=== PATIENT | female | born 1940 | race Caucasian/White ===

== ENCOUNTER → 2016-11-24 | Outpatient (CLI) | payer MEDICARE, BC ==
--- NOTE | 2016-11-24 16:00 | XR ---
Bilateral hips HISTORY: Bilateral hip pain 2 views of each hip submitted on a total of 4 images and correlated to prior CT abdomen pelvis dated May Mild joint space loss and marginal spurring is present. Bone mineralization mildly reduced. Postop ch anges are noted in the pelvis. IMPRESSION: Osteoarthritis is mild.
== END ==
LOC: RADXRMAIN 15:41
PROVIDERS: ATTEND Family Medicine
DX: M16.0 Bilateral primary osteoarthritis of hip (principal)
CPT/HCPCS: 73521

== ENCOUNTER → 2016-12-05 | Outpatient (CLI) | payer MEDICARE, BC ==
--- NOTE | 2016-12-05 14:40 | BD ---
EXAMINATION TYPE: MG DEXA axial skeleton. DATE OF EXAM: 12/05/2016 1:12 PM CLINICAL HISTORY: Height: 63.5 inches Weight: 188 FRAX RISK QUESTIONS: Alcohol (3 or more units per day): no Family History (Parent hip fracture): mother-no, does not know about father Glucocorticoids (More than 3mos): yes (Ex: prednisone, prednisolone, methylprednisolone, dexamethasone, and hydrocortisone). History of Fracture in Adulthood: no Secondary Osteoporosis: 1. Type 1 Diabetes: no 2. Hyperthyroidism: no 3. Menopause before 45: yes; hysterectomy age 42 4. Malnutrition: no 5. Chronic liver disease: no Rheumatoid Arthritis: no Current Tobacco Use: no RISK FACTORS HISTORY OF: History of Fracture: no Family History of Osteoporosis: unsure Smoke tobacco: quit about 25 years ago Drink Alcohol: sometimes Active: somewhat Diet low in dairy products/other sources of calcium: somewhat Postmenopausal woman: yes Take estrogen and/or progesterone medications: no Lost more than 2 inches in height since high school: unsure; last bone density study lists height as 65 inches Frequent falls: no Poor Health: no Hyperparathyroidism: no Adrenal Insufficiency: no MEDICATIONS: Prednisone or other steroids: yes How Long: several months ago started Symbicort Thyroid Medications: no Osteoporosis Medications: no Additional Medications: Vitamin D, probiotic Additional History: osteoarthritis bilateral hips, systemic sclerosis EXAM MEASUREMENTS: Bone mineral densitometry was performed using the [employer] System. Bone mineral density as measured about the Lumbar spine is: ----- L1-L4(G/cm2): 1.511 T Score Values are as follows: ----- L2: 3.0 ----- L3: 3.9 ----- L4: 1.8 ----- L1-L4: 2.8 Bone mineral density has: Increased 8.0% since study of: 12/08/2005 Bone mineral density about the R hip (g/cm2): 1.036 Bone mineral density about the L hip (g/cm2): 0.988 T Score values are as follows: -----R Neck: 0.0 -----L Neck: -0.4 -----R Intertrochanter: -0.7 -----L Intertrochanter: -0.7 Bone mineral density has: Decreased -12.3% since study of: 12/08/2005 IMPRESSION: Normal (Values between +1 and -1 indicate normal bone mass)Lumbar Spin & Bilateral Hips NOTE: T-SCORE=SD OF THE YOUNG ADULT MEAN.
== END | disposition home or self-care (01) ==
LOC: RADBDWWP 12:39
PROVIDERS: ATTEND Family Medicine
DX: M16.4 Bilateral post-traumatic osteoarthritis of hip (principal)
CPT/HCPCS: 77080

== ENCOUNTER → 2018-06-10 | Outpatient (CLI) | payer MEDICARE, BC ==
[2018-06-10 15:37] LABS: Basophils % (A) 0 %; Eosinophils # (A) 0.1 k/uL (0-0.7); Eosinophils % (A) 0 %; HCT 40.4 % (34.0-46.0); Lymphocytes # (A) 0.5 k/uL (1.0-4.8); Lymphocytes % (A) 3 %; MCH 30.2 pg (25.0-35.0); MCHC 32.2 g/dL (31.0-37.0); MCV 93.6 fL (80.0-100.0); Mean Platelet Volume 6.6; Monocytes # (A) 0.4 k/uL (0-1.0); Monocytes % (A) 2 %; Neutrophils # (A) 16.6 k/uL (1.3-7.7); Neutrophils % (A) 95 %; Platelet Count 271 k/uL (150-450); RBC 4.31 m/uL (3.80-5.40); RDW 14.7 % (11.5-15.5); WBC 17.6 k/uL (3.8-10.6)
[2018-06-10 15:57] LABS: ALT 30 U/L (9-52); AST 23 U/L (14-36); Albumin 3.9 g/dL (3.5-5.0); Alkaline Phosphatase 37 U/L (38-126); Anion Gap 11 mmol/L; Blood Urea Nitrogen 37 mg/dL (7-17); C Reactive Protein <5.0 mg/L (<10.0); Calcium 9.2 mg/dL (8.4-10.2); Carbon Dioxide 24 mmol/L (22-30); Chloride 103 mmol/L (98-107); Glucose 189 mg/dL (74-99); Potassium 4.7 mmol/L (3.5-5.1); Sodium 138 mmol/L (137-145); Total Bilirubin 0.4 mg/dL (0.2-1.3); Total Protein 6.1 g/dL (6.3-8.2)
[2018-06-10 16:48] LABS: Erythrocyte Sedimentation Rate 8 mm/hr (0-20)
[2018-06-11 04:01] LABS: RNP <0.2 AI
[2018-06-11 10:39] LABS: ANA Pattern Centromere
== END ==
LOC: LABWHC1 15:13
PROVIDERS: ATTEND Internal Medicine
DX: M35.4 Diffuse (eosinophilic) fasciitis (principal); R76.8 Other specified abnormal immunological findings in serum
CPT/HCPCS: 36415; 80053; 84165; 84166; 85025; 85652; 86038; 86039; 86140; 86235

== ENCOUNTER 2018-06-28 04:48 | Emergency (ER) | payer MEDICARE, BC ==
[2018-06-28 04:57] VITALS: TEMP 97.9
[2018-06-28] MEDS ORDERED: SODIUM CHLORIDE 0.9% 500 ML IV STA (05:03)
--- NOTE | 2018-06-28 05:12 | ED ---
General Adult HPI - General Source: patient, family Mode of arrival: ambulatory Limitations: no limitations <Amaury Sullivan - Last Filed: 06/28/18 05:38> <Anthony Miranda - Last Filed: 06/28/18 07:58> - General Chief complaint: Abdominal Pain Stated complaint: Flank pain - History of Present Illness Initial comments: Dictation was produced using [employer] dictation software. please excuse any grammatical, word or spelling errors. Chief Complaint: 78-year-old female presents with 3 days of abdominal pain. History of Present Illness: Patient is a 78-year-old female past medical history of eosinophilic fasciitis, GERD, hypertension, bowel resection presents with right lower quadrant abdominal pain and constipation. Patient states she's had these symptoms for 3 days. She states that her symptoms were much worse today prompting her come to the emergency department. Patient denies any constitutional symptoms. No nausea or vomiting. Patient has any pain exacerbated with sudden movements. She states that her pain is present only with palpation. Denies any symptoms that were ever in the periumbilical area. Patient has a history of colon resection. She also had an incisional hernia that is status post repair. The ROS documented in this emergency department record has been reviewed and confirmed by me. Those systems with pertinent positive or negative responses have been documented in the HPI. All other systems are other negative and/or noncontributory. (Amaury Sullivan) - Related Data Home Medications Medication Instructions Recorded Confirmed Losartan/Hydrochlorothiazide 1 each PO DAILY 05/01/14 06/28/18 [Hyzaar 100-25 Tablet] Omeprazole [PriLOSEC] 20 mg PO DAILY 05/01/14 06/28/18 Biotin 5,000 mcg PO 06/28/18 Calcium Carbonate/Vitamin D3 1 each PO 06/28/18 [Calcium 600-Vit D3 500 Softgel] L.acidoph,Paracasei, B.lactis 1 each PO 06/28/18 [Probiotic] Sulfamethox-Tmp 800-160Mg [Bactrim 1 tab PO Q7DAYS 06/28/18 06/28/18 DS 800-160 mg] predniSONE 10 mg PO BID 06/28/18 06/28/18 traMADol HCL [Ultram] 50 mg PO Q6HR PRN 06/28/18 06/28/18 Allergies Allergy/AdvReac Type Severity Reaction Status Date / Time adhesive tape AdvReac Rash/Hives Verified 06/28/18 05:40 ciprofloxacin [From Cipro] AdvReac Cough Verified 06/28/18 04:58 ciprofloxacin HCl AdvReac Cough Verified 06/28/18 04:58 [From Cipro] Review of Systems ROS Other: All systems not noted in ROS Statement are negative. <Amaury Sullivan - Last Filed: 06/28/18 05:38> ROS Other: All systems not noted in ROS Statement are negative. <Anthony Miranda - Last Filed: 06/28/18 07:58> ROS Statement: Those systems with pertinent positive or pertinent negative responses have been documented in the HPI. Past Medical History Past Medical History: GERD/Reflux, Hypertension Additional Past Medical History / Comment(s): dermatitis, History of Any Multi-Drug Resistant Organisms: None Reported Past Surgical History: Bowel Resection, Cholecystectomy, Hernia Repair, Hysterectomy, Tonsillectomy Additional Past Surgical History / Comment(s): heel spurs, cataracts Past Anesthesia/Blood Transfusion Reactions: No Reported Reaction Past Psychological History: No Psychological Hx Reported Smoking Status: Former smoker Past Alcohol Use History: Occasional Past Drug Use History: None Reported <Amaury Sullivan - Last Filed: 06/28/18 05:38> General Exam Limitations: no limitations <Amaury Sullivan - Last Filed: 06/28/18 05:38> <Anthony Miranda - Last Filed: 06/28/18 07:58> - General Exam Comments Initial Comments: PHYSICAL EXAM: General Impression: Alert and oriented x3, not in acute distress HEENT: Normocephalic atraumatic, extra-ocular movements intact, pupils equal and reactive to light bilaterally, mucous membranes moist. Cardiovascular: Heart regular rate and rhythm, S1&S2 audible, no murmurs, rubs or gallops Chest: Lungs clear to auscultation bilaterally, no rhonchi, no wheeze, no rales Abdomen: Bowel sounds present, abdomen soft, obese, slight tenderness to the right lower quadrant, negative rebound tenderness. Musculoskeletal: Pulses present and equal in all extremities, no peripheral edema Motor: Power 5/5 bilaterally, no focal deficits noted Neurological: CN II-XII grossly intact, no focal motor or sensory deficits noted Skin: Intact with no visualized rashes Psych: Normal affect and mood (Amaury Sullivan) Course <Amaury Sullivan - Last Filed: 06/28/18 05:38> <Anthony Miranda - Last Filed: 06/28/18 07:58> Vital Signs 06/28/18 06/28/18 04:53 06:53 Temperature 97.9 F Pulse Rate 94 92 Respiratory 18 20 Rate Blood Pressure 222/97 218/72 O2 Sat by Pulse 97 98 Oximetry - Reevaluation(s) Reevaluation #1: 06/28/18 07:56 I did discuss the findings with the patient and her . CAT scan is negative for acute findings patient states that she's been constipated recently and with certain movements she'll have pain in the right lower quadrant area. CT shows no evidence of appendicitis or inflammatory processes. I did discuss the findings with him including lab values. Patient states she was like to try MiraLAX at home before trying any other medication. A urine culture will be sent she currently is on Bactrim for a fasciitis she's been treated for she's had no urinary symptoms. 06/28/18 07:57 The symptoms are likely consistent with a spastic colon (Anthony Miranda) Medical Decision Making <Amaury Sullivan - Last Filed: 06/28/18 05:38> - Lab Data Result diagrams: 06/28/18 05:21 06/28/18 05:21 <Anthony Miranda - Last Filed: 06/28/18 07:58> - Medical Decision Making ED course: 78-year-old female with multiple comorbidities presents with right lower quadrant abdominal pain and constipation. Vital signs upon arrival shows blood pressure 222/97 EKG interpretation: Ventricular rate 70, normal sinus rhythm, MS interval 1:30, QRS 74, QTC 395. No MS prolongation, no QTC prolongation, no ST or T-wave changes noted. . Overall, this EKG is unremarkable (Amaury Sullivan) - Lab Data Lab Results 06/28/18 06/28/18 06/28/18 Range/Units 05:21 05:21 05:21 WBC 10.0 (3.8-10.6) k/uL RBC 3.85 (3.80-5.40) m/uL Hgb 12.0 (11.4-16.0) gm/dL Hct 36.3 (34.0-46.0) % MCV 94.4 (80.0-100.0) fL MCH 31.2 (25.0-35.0) pg MCHC 33.1 (31.0-37.0) g/dL RDW 14.5 (11.5-15.5) % Plt Count 215 (150-450) k/uL Neutrophils % 75 % Lymphocytes % 16 % Monocytes % 7 % Eosinophils % 1 % Basophils % 0 % Neutrophils # 7.4 (1.3-7.7) k/uL Lymphocytes # 1.6 (1.0-4.8) k/uL Monocytes # 0.7 (0-1.0) k/uL Eosinophils # 0.1 (0-0.7) k/uL Basophils # 0.0 (0-0.2) k/uL PT 10.1 (9.0-12.0) sec INR 1.0 (<1.2) Sodium 135 L (137-145) mmol/L Potassium 5.7 H (3.5-5.1) mmol/L Chloride 103 (98-107) mmol/L Carbon Dioxide 28 (22-30) mmol/L Anion Gap 4 mmol/L BUN 32 H (7-17) mg/dL Creatinine 1.04 (0.52-1.04) mg/dL Est GFR (CKD-EPI)AfAm 61 (>60 ml/min/1.73 sqM) Est GFR (CKD-EPI)NonAf 53 (>60 ml/min/1.73 sqM) Glucose 89 (74-99) mg/dL Calcium 9.1 (8.4-10.2) mg/dL Total Bilirubin 1.0 (0.2-1.3) mg/dL AST 40 H (14-36) U/L ALT 23 (9-52) U/L Alkaline Phosphatase <20 L (38-126) U/L Total Protein 6.0 L (6.3-8.2) g/dL Albumin 3.5 (3.5-5.0) g/dL Lipase 143 (23-300) U/L Urine Color Urine Appearance (Clear) Urine pH (5.0-8.0) Ur Specific [place] (1.001-1.035) Urine Protein (Negative) Urine Glucose (UA) (Negative) Urine Ketones (Negative) Urine Blood (Negative) Urine Nitrite (Negative) Urine Bilirubin (Negative) Urine Urobilinogen (<2.0) mg/dL Ur Leukocyte Esterase (Negative) Urine WBC (0-5) /hpf Ur Squamous Epith Cells (0-4) /hpf Urine Bacteria (None) /hpf Urine Mucus (None) /hpf 06/28/18 Range/Units 05:35 WBC (3.8-10.6) k/uL RBC (3.80-5.40) m/uL Hgb (11.4-16.0) gm/dL Hct (34.0-46.0) % MCV (80.0-100.0) fL MCH (25.0-35.0) pg MCHC (31.0-37.0) g/dL RDW (11.5-15.5) % Plt Count (150-450) k/uL Neutrophils % % Lymphocytes % % Monocytes % % Eosinophils % % Basophils % % Neutrophils # (1.3-7.7) k/uL Lymphocytes # (1.0-4.8) k/uL Monocytes # (0-1.0) k/uL Eosinophils # (0-0.7) k/uL Basophils # (0-0.2) k/uL PT (9.0-12.0) sec INR (<1.2) Sodium (137-145) mmol/L Potassium (3.5-5.1) mmol/L Chloride (98-107) mmol/L Carbon Dioxide (22-30) mmol/L Anion Gap mmol/L BUN (7-17) mg/dL Creatinine (0.52-1.04) mg/dL Est GFR (CKD-EPI)AfAm (>60 ml/min/1.73 sqM) Est GFR (CKD-EPI)NonAf (>60 ml/min/1.73 sqM) Glucose (74-99) mg/dL Calcium (8.4-10.2) mg/dL Total Bilirubin (0.2-1.3) mg/dL AST (14-36) U/L ALT (9-52) U/L Alkaline Phosphatase (38-126) U/L Total Protein (6.3-8.2) g/dL Albumin (3.5-5.0) g/dL Lipase (23-300) U/L Urine Color Light Yellow Urine Appearance Clear (Clear) Urine pH 6.5 (5.0-8.0) Ur Specific [place] 1.009 (1.001-1.035) Urine Protein Trace H (Negative) Urine Glucose (UA) Negative (Negative) Urine Ketones Negative (Negative) Urine Blood Negative (Negative) Urine Nitrite Negative (Negative) Urine Bilirubin Negative (Negative) Urine Urobilinogen <2.0 (<2.0) mg/dL Ur Leukocyte Esterase Large H (Negative) Urine WBC 31 H (0-5) /hpf Ur Squamous Epith Cells <1 (0-4) /hpf Urine Bacteria Few H (None) /hpf Urine Mucus Rare H (None) /hpf Disposition <Amaury Sullivan - Last Filed: 06/28/18 05:38> Is patient prescribed a controlled substance at d/c from ED?: No <Anthony Miranda - Last Filed: 06/28/18 07:58> Clinical Impression: Abdominal pain, Constipation, Spastic colon, Dehydration Disposition: HOME SELF-CARE Condition: Good Instructions: Abdominal Pain (ED), Constipation (ED), Dehydration (ED) Referrals: Ruben Donahue DO [Primary Care Provider] - 1-2 days
[2018-06-28 05:47] LABS: ALT 23 U/L (9-52); AST 40 U/L (14-36); Albumin 3.5 g/dL (3.5-5.0); Alkaline Phosphatase <20 U/L (38-126); Anion Gap 4 mmol/L; Blood Urea Nitrogen 32 mg/dL (7-17); Calcium 9.1 mg/dL (8.4-10.2); Carbon Dioxide 28 mmol/L (22-30); Chloride 103 mmol/L (98-107); Glucose 89 mg/dL (74-99); Lipase 143 U/L (23-300); Sodium 135 mmol/L (137-145)
[2018-06-28 05:48] LABS: Potassium 5.7 mmol/L (3.5-5.1)
[2018-06-28 06:04] LABS: Prothrombin Time 10.1 sec (9.0-12.0)
[2018-06-28 06:07] LABS: Appearance,Urine Clear (Clear); Bacteria,Urine Few /hpf; Bilirubin,Urine Negative (Negative); Blood,Urine Negative (Negative); Color,Urine Light Yellow; Glucose,Urine (UA) Negative (Negative); Ketones,Urine Negative (Negative); Leukocyte Esterase,Urine Large (Negative); Mucus,Urine Rare /hpf; Nitrite,Urine Negative (Negative); PH, Urine 6.5 (5.0-8.0); Protein,Urine Trace (Negative); Specific Gravity,Urine 1.009 (1.001-1.035); Squamous Epithelial Cell,Urine <1 /hpf (0-4); Urobilinogen,Urine <2.0 mg/dL (<2.0); WBC,Urine 31 /hpf (0-5)
[2018-06-28 06:36] LABS: Basophils % (A) 0 %; Eosinophils # (A) 0.1 k/uL (0-0.7); Eosinophils % (A) 1 %; HCT 36.3 % (34.0-46.0); Lymphocytes # (A) 1.6 k/uL (1.0-4.8); Lymphocytes % (A) 16 %; MCH 31.2 pg (25.0-35.0); MCHC 33.1 g/dL (31.0-37.0); MCV 94.4 fL (80.0-100.0); Mean Platelet Volume 6.9; Monocytes # (A) 0.7 k/uL (0-1.0); Monocytes % (A) 7 %; Neutrophils # (A) 7.4 k/uL (1.3-7.7); Neutrophils % (A) 75 %; Platelet Count 215 k/uL (150-450); RBC 3.85 m/uL (3.80-5.40); RDW 14.5 % (11.5-15.5)
[2018-06-28] MEDS ORDERED: LABETALOL 5 MG/ML VIAL MDV IVP STA (06:52)
[2018-06-28 06:54] VITALS: PULSE 92; RESP 20
--- NOTE | 2018-06-28 07:19 | CT ---
EXAM: CT Abdomen and Pelvis With Intravenous Contrast CLINICAL HISTORY: 78-year-old female with pain. TECHNIQUE: Axial computed tomography images of the abdomen and pelvis with intravenous contrast during the portal venous and delayed phases. Coronal and sagittal reformatted images of the portal venous phase were created and reviewed. CTDI is 58.1 mGy and DLP is 1842 mGy-cm. This CT exam was performed using one or more of the following dose reduction techniques: automated exposure control, adjustment of the mA and/or kV according to patient size, and/or use of iterative reconstruction technique. COMPARISON: Abdomen and pelvis CT with oral and intravenous contrast 06/01/2014. FINDINGS: Lung bases: Unremarkable, apart from tiny hiatal hernia. ABDOMEN: Liver: Unremarkable. Gallbladder and bile ducts: Status post cholecystectomy, as before. Pancreas: Unremarkable. Spleen: Unremarkable. Adrenals: Unremarkable. Kidneys and ureters: Multiple hypodense nonenhancing bilateral renal cysts, the largest on the right measuring up to 2.7 cm. Stomach and bowel: Status post interval partial distal colectomy since the prior exam. Mild residual colonic diverticulosis. PELVIS: Appendix: Unremarkable. Bladder: Unremarkable. Reproductive: Status post hysterectomy, as before. ABDOMEN and PELVIS: Intraperitoneal space: No ascites or pneumoperitoneum. Bones/joints: Probable osteoporosis/osteopenia of at least the spine. Soft tissues: Status post anterior abdominal wall hernia repair, as before. Vasculature: Moderate to marked atherosclerosis, as before. Lymph nodes: No pathologically enlarged lymph nodes. IMPRESSION: No acute abnormality identified to explain unspecified pain.
[2018-06-28 08:06] VITALS: BP 171/82
== END 2018-06-28 08:08 | disposition home or self-care (01) ==
LOC: EC 04:48
DX: K58.1 Irritable bowel syndrome with constipation (principal); E86.0 Dehydration; I10 Essential (primary) hypertension; K21.9 Gastro-esophageal reflux disease without esophagitis; Z87.19 Personal history of other diseases of the digestive system; Z98.890 Other specified postprocedural states; Z90.49 Acquired absence of other specified parts of digestive tract; Z90.710 Acquired absence of both cervix and uterus; Z87.891 Personal history of nicotine dependence; Z79.52 Long term (current) use of systemic steroids; Z79.899 Other long term (current) drug therapy; Z91.048 Other nonmedicinal substance allergy status; Z88.1 Allergy status to other antibiotic agents
CPT/HCPCS: 99284; 96374; 96361; 36415; 93005; 80053; 83690; 85025; 85610; 81001; 87086; 87077; 87186; 74177; Q9967

== ENCOUNTER → 2018-07-18 | Outpatient (CLI) | payer MEDICARE, BC ==
--- NOTE | 2018-07-18 16:12 | BD ---
EXAMINATION TYPE: Axial Bone Density DATE OF EXAM: 07/18/2018 COMPARISON: NONE CLINICAL HISTORY: Long-term corticosteroid use Height: 63 Weight: 199.1 FRAX RISK QUESTIONS: Alcohol (3 or more units per day): no Family History (Parent hip fracture): no Glucocorticoids (More than 3mos): yes (Ex: prednisone, prednisolone, methylprednisolone, dexamethasone, and hydrocortisone). History of Fracture in Adulthood: no Secondary Osteoporosis: 1. Type 1 Diabetes: no 2. Hyperthyroidism: no 3. Menopause before 45: yes 4. Malnutrition: no 5. Chronic liver disease: no Rheumatoid Arthritis: no Current Tobacco Use: no RISK FACTORS HISTORY OF: Family History of Osteoporosis: no Active: sometimes Diet low in dairy products/other sources of calcium: no Postmenopausal woman: early 40's Lost more than 2 inches in height since high school: yes Frequent falls: no MEDICATIONS: corticosteroids-since March 2018, bp meds, omeprazole, vit d, calcium vitamins Prednisone or other steroids: prednisone Additional History: EXAM MEASUREMENTS: Bone mineral densitometry was performed using the [employer] System. Bone mineral density as measured about the Lumbar spine is: ----- L1-L4(G/cm2): 1.447 T Score Values are as follows: ----- L2: 0.8 ----- L3: 3.0 ----- L4: 3.8 ----- L1-L4: 2.2 Bone mineral density has: decreased -1.6 % since study of: 12.05.2016 Bone mineral density about the R hip (g/cm2): 1.021 Bone mineral density about the L hip (g/cm2): 0.925 T Score values are as follows: -----R Neck: -0.1 -----L Neck: -0.8 -----R Total: 0.0 -----L Total: 0.0 Bone mineral density has: decreased -5.9 % since study of: 12.05.2016 IMPRESSION: Normal (Values between +1 and -1 indicate normal bone mass). Consider repeating this study in 5 year s or sooner if there is some new clinical indication. NOTE: T-SCORE=SD OF THE YOUNG ADULT MEAN.
== END ==
LOC: RADBDWWP 15:02
PROVIDERS: ATTEND Internal Medicine
DX: Z51.81 Encounter for therapeutic drug level monitoring (principal); Z79.52 Long term (current) use of systemic steroids
CPT/HCPCS: 77080

== ENCOUNTER → 2018-08-29 | Outpatient (CLI) | payer MEDICARE, BC ==
--- NOTE | 2018-08-29 15:50 | NM ---
EXAMINATION TYPE: NM bone/joint limited DATE OF EXAM: 08/29/2018 COMPARISON: NONE HISTORY: Left lower extremity edema TECHNIQUE: After the intravenous administration of 23.9 mCi Tc 99m MDP. Images acquired 3 hours pos t injection. Multiple views of the legs are submitted. There is no abnormal uptake within the visualized osseous structures to suggest acute process. Soft t issue uptake is compatible with cellulitis. IMPRESSION: Correlate for cellulitis. Osteomyelitis is not evident.
== END | disposition home or self-care (01) ==
LOC: RADNMMAIN 10:34
PROVIDERS: ATTEND Family Medicine
DX: R22.42 Localized swelling, mass and lump, left lower limb (principal)
CPT/HCPCS: 78300; A9503

== ENCOUNTER 2019-07-03 20:20 | Inpatient (IN) | payer MEDICARE, BC ==
[2019-07-03] MEDS ORDERED: IPRATROPIUM-ALBUTEROL 3 ML NEB INHALATION STA (21:06)
[2019-07-03] MEDS ORDERED: MAGNESIUM SULFATE-D5W PMX 1 GM in DEXTROSE/WATER 1 100ML.BAG IVPB STA (21:06)
[2019-07-03 21:37] LABS: Basophils # (A) 0.1 k/uL (0-0.2); Basophils % (A) 1 %; Eosinophils # (A) 0.1 k/uL (0-0.7); Eosinophils % (A) 0 %; HCT 31.4 % (34.0-46.0); HGB 9.7 gm/dL (11.4-16.0); Lymphocytes # (A) 1.3 k/uL (1.0-4.8); Lymphocytes % (A) 5 %; MCH 27.8 pg (25.0-35.0); MCHC 30.9 g/dL (31.0-37.0); MCV 89.7 fL (80.0-100.0); Mean Platelet Volume 7.3; Monocytes # (A) 1.3 k/uL (0-1.0); Monocytes % (A) 5 %; Neutrophils # (A) 22.2 k/uL (1.3-7.7); Neutrophils % (A) 88 %; Platelet Count 454 k/uL (150-450); RDW 13.3 % (11.5-15.5); WBC 25.3 k/uL (3.8-10.6)
--- NOTE | 2019-07-03 21:42 | ED ---
SOB HPI - General Chief Complaint: Shortness of Breath Stated Complaint: LASHELL Time Seen by Provider: 07/03/19 20:30 Source: patient, family Mode of arrival: wheelchair Limitations: no limitations - History of Present Illness Initial Comments: The patient is a 79-year-old female who presents to the emergency department with reported shortness of breath. She denies any previous cardiac or pulmonary history. States that over the past few days she has had progressive shortness of breath. is at bedside and states that she has exertional shortness of breath and can barely walk across a room without having to stop and catch her breath. She has also had a productive cough and chills. Denies any sick contacts or recent travel. They called her primary care physician who did call in a prescription for steroids and azithromycin. The patient did take her prescribed medications today however shortness of breath got worse. She denies a history of COPD or asthma. Denies history of congestive heart failure. No lower extremity swelling. She denies any chest pain. No fevers or chills. Denies nausea, vomiting, abdominal pain. No changes in her bowel or bladder habits. There are no alleviating, precipitating or modifying factors - Related Data Home Medications Medication Instructions Recorded Confirmed Losartan/Hydrochlorothiazide 1 tab PO DAILY 05/01/14 07/03/19 [Hyzaar 100-25 Tablet] Omeprazole [PriLOSEC] 20 mg PO DAILY 05/01/14 07/03/19 L.acidoph,Paracasei, B.lactis 1 cap PO DAILY 06/28/18 07/03/19 [Probiotic] predniSONE See Taper PO DAILY 06/28/18 07/03/19 traMADol HCL [Ultram] 50 - 100 mg PO TID PRN 06/28/18 07/03/19 Azithromycin [Zithromax Z-pack] See Taper PO DIRECTED 07/03/19 07/03/19 Biotin 10,000 mcg PO DAILY 07/03/19 07/03/19 Calcium Carbonate [Calcium] 600 mg PO DAILY 07/03/19 07/03/19 Cholecalciferol [Vitamin D3 (25 5,000 unit PO DAILY 07/03/19 07/03/19 Mcg = 1000 Iu)] Allergies Allergy/AdvReac Type Severity Reaction Status Date / Time levofloxacin [From Levaquin] Allergy Rash/Hives Verified 07/04/19 08:10 sulfamethoxazole Allergy Rash/Hives Verified 07/04/19 08:10 [From Bactrim] trimethoprim [From Bactrim] Allergy Rash/Hives Verified 07/04/19 08:10 adhesive tape AdvReac Rash/Hives Verified 07/03/19 20:49 ciprofloxacin [From Cipro] AdvReac Cough Verified 07/03/19 20:49 ciprofloxacin HCl AdvReac Cough Verified 07/03/19 20:49 [From Cipro] Review of Systems ROS Statement: Those systems with pertinent positive or pertinent negative responses have been documented in the HPI. ROS Other: All systems not noted in ROS Statement are negative. Past Medical History Past Medical History: GERD/Reflux, Hypertension Additional Past Medical History / Comment(s): dermatitis, History of Any Multi-Drug Resistant Organisms: ESBL Date of last positivie culture/infection: 06/28/18 MDRO Source:: Urine Past Surgical History: Bowel Resection, Cholecystectomy, Hernia Repair, Hysterectomy, Tonsillectomy Additional Past Surgical History / Comment(s): heel spurs, cataracts Past Anesthesia/Blood Transfusion Reactions: No Reported Reaction Past Psychological History: No Psychological Hx Reported Smoking Status: Former smoker Past Alcohol Use History: Occasional Past Drug Use History: None Reported - Past Family History Mother Family Medical History: Myocardial Infarction ([place]) General Exam Limitations: no limitations General appearance: alert, anxious, in distress Head exam: Present: atraumatic, normocephalic, normal inspection Eye exam: Present: normal appearance, PERRL, EOMI. Absent: scleral icterus, conjunctival injection, periorbital swelling ENT exam: Present: normal exam, mucous membranes moist Neck exam: Present: normal inspection. Absent: tenderness, meningismus, lymphadenopathy Respiratory exam: Present: respiratory distress, wheezes, rales, accessory muscle use. Absent: rhonchi, stridor Cardiovascular Exam: Present: normal rhythm, tachycardia, normal heart sounds. Absent: systolic murmur, diastolic murmur, rubs, gallop, clicks GI/Abdominal exam: Present: soft, normal bowel sounds. Absent: distended, tenderness, guarding, rebound, rigid Extremities exam: Present: full ROM, normal capillary refill, pedal edema. Absent: tenderness, joint swelling, calf tenderness Back exam: Present: normal inspection Neurological exam: Present: alert, oriented X3, CN II-XII intact Psychiatric exam: Present: normal affect, normal mood Skin exam: Present: warm, dry, intact, normal color. Absent: rash Course Vital Signs 07/03/19 07/03/19 07/03/19 20:26 20:34 21:57 Temperature 98.0 F Pulse Rate 118 H 93 Respiratory 28 H 27 H Rate Blood Pressure O2 Sat by Pulse 90 L Oximetry 07/03/19 07/03/19 07/04/19 22:08 23:14 00:01 Temperature Pulse Rate 89 124 H 124 H Respiratory 34 H 32 H Rate Blood Pressure 197/101 200/101 O2 Sat by Pulse 97 97 Oximetry 07/04/19 07/04/19 07/04/19 00:43 01:29 02:00 Temperature Pulse Rate 118 H 126 H 125 H Respiratory 32 H 32 H 32 H Rate Blood Pressure 203/103 193/93 199/89 O2 Sat by Pulse 97 97 97 Oximetry 07/04/19 07/04/19 07/04/19 02:37 02:43 02:55 Temperature Pulse Rate 118 H 105 H 101 H Respiratory 32 H 18 30 H Rate Blood Pressure 199/107 199/107 188/11 O2 Sat by Pulse 98 97 98 Oximetry 07/04/19 07/04/19 07/04/19 03:00 03:43 04:09 Temperature Pulse Rate 122 H 102 H 88 Respiratory 32 H 28 H 26 H Rate Blood Pressure 197/113 188/100 178/93 O2 Sat by Pulse 98 96 Oximetry 07/04/19 07/04/19 07/04/19 05:00 05:52 05:54 Temperature 97.2 F L Pulse Rate 74 116 H 85 Respiratory 20 32 H 20 Rate Blood Pressure 150/71 188/111 180/89 O2 Sat by Pulse 97 97 100 Oximetry Procedures - ABG Interpretation Ph: 7.34 PCO2: 43.9 PO2: 152 Bicarbonate: 23.6 Interpretation: normal Medical Decision Making - Medical Decision Making Upon arrival the patient is placed into trauma bay 3. A thorough history and physical exam was obtained. The patient is in respiratory distress at this time and therefore she was placed on BiPAP. Lungs are diffusely wheezy with rales at the bases. I did recommend laboratory studies and a chest x-ray. Laboratory studies demonstrate a white blood cell count 25,000. Hemoglobin is 9.7, platelets 454. D-dimer is elevated at 4.35. BNP 6300, troponin 0.032, BUN 50, creatinine 1.46. Because of the patient's elevated d-dimer I did change the patient's x-ray to a CT. CT demonstrates no evidence of pulmonary embolism. There is cardiomegaly with pleural effusions and pulmonary infiltrates. There is pulmonary edema with a picture consistent of congestive heart failure. The patient's blood pressure is markedly elevated and therefore she is started on a nitro drip. She remains on BiPAP. I do attempt to take her off twice over the patient does not tolerate this and was put back on. I did provide her with 40 mg of IV Lasix. Blood cultures were obtained. I did give her dose of azithromycin and Rocephin. The patient will be admitted to the telemetry floor. I did call discuss case with Dr. Bustos who did accept admission for the patient. Renteria catheter was placed. She is currently awaiting a bed on the floor - Lab Data Result diagrams: 07/06/19 04:43 07/06/19 04:43 Lab Results 07/03/19 07/03/19 07/03/19 Range/Units 20:45 20:45 20:45 WBC 25.3 H (3.8-10.6) k/uL RBC 3.50 L (3.80-5.40) m/uL Hgb 9.7 L (11.4-16.0) gm/dL Hct 31.4 L (34.0-46.0) % MCV 89.7 (80.0-100.0) fL MCH 27.8 (25.0-35.0) pg MCHC 30.9 L (31.0-37.0) g/dL RDW 13.3 (11.5-15.5) % Plt Count 454 H (150-450) k/uL Neutrophils % 88 % Lymphocytes % 5 % Monocytes % 5 % Eosinophils % 0 % Basophils % 1 % Neutrophils # 22.2 H (1.3-7.7) k/uL Lymphocytes # 1.3 (1.0-4.8) k/uL Monocytes # 1.3 H (0-1.0) k/uL Eosinophils # 0.1 (0-0.7) k/uL Basophils # 0.1 (0-0.2) k/uL PT 10.3 (9.0-12.0) sec INR 1.0 (<1.2) APTT 25.0 (22.0-30.0) sec D-Dimer 4.35 H (<0.60) mg/L FEU Sample Site ABG pH (7.35-7.45) ABG pCO2 (35-45) mmHg ABG pO2 (83-108) mmHg ABG HCO3 (21-25) mmol/L ABG Total CO2 (19-24) mmol/L ABG O2 Saturation (94-97) % ABG Base Excess mmol/L Gerber Test FiO2 % Sodium 140 (137-145) mmol/L Potassium 4.6 (3.5-5.1) mmol/L Chloride 105 (98-107) mmol/L Carbon Dioxide 20 L (22-30) mmol/L Anion Gap 15 mmol/L BUN 50 H (7-17) mg/dL Creatinine 1.46 H (0.52-1.04) mg/dL Est GFR (CKD-EPI)AfAm 40 (>60 ml/min/1.73 sqM) Est GFR (CKD-EPI)NonAf 35 (>60 ml/min/1.73 sqM) Glucose 176 H (74-99) mg/dL Calcium 9.1 (8.4-10.2) mg/dL Magnesium 1.8 (1.6-2.3) mg/dL Total Bilirubin 0.4 (0.2-1.3) mg/dL AST 26 (14-36) U/L ALT 22 (9-52) U/L Alkaline Phosphatase 57 (38-126) U/L Troponin I (0.000-0.034) ng/mL NT-Pro-B Natriuret Pep pg/mL Total Protein 7.2 (6.3-8.2) g/dL Albumin 4.2 (3.5-5.0) g/dL 07/03/19 07/03/19 07/03/19 Range/Units 20:45 20:45 21:44 WBC (3.8-10.6) k/uL RBC (3.80-5.40) m/uL Hgb (11.4-16.0) gm/dL Hct (34.0-46.0) % MCV (80.0-100.0) fL MCH (25.0-35.0) pg MCHC (31.0-37.0) g/dL RDW (11.5-15.5) % Plt Count (150-450) k/uL Neutrophils % % Lymphocytes % % Monocytes % % Eosinophils % % Basophils % % Neutrophils # (1.3-7.7) k/uL Lymphocytes # (1.0-4.8) k/uL Monocytes # (0-1.0) k/uL Eosinophils # (0-0.7) k/uL Basophils # (0-0.2) k/uL PT (9.0-12.0) sec INR (<1.2) APTT (22.0-30.0) sec D-Dimer (<0.60) mg/L FEU Sample Site L Rad ABG pH 7.34 L (7.35-7.45) ABG pCO2 44 (35-45) mmHg ABG pO2 152 H (83-108) mmHg ABG HCO3 24 (21-25) mmol/L ABG Total CO2 25 H (19-24) mmol/L ABG O2 Saturation 99.5 H (94-97) % ABG Base Excess -2.1 mmol/L Gerber Test Yes FiO2 50 % Sodium (137-145) mmol/L Potassium (3.5-5.1) mmol/L Chloride (98-107) mmol/L Carbon Dioxide (22-30) mmol/L Anion Gap mmol/L BUN (7-17) mg/dL Creatinine (0.52-1.04) mg/dL Est GFR (CKD-EPI)AfAm (>60 ml/min/1.73 sqM) Est GFR (CKD-EPI)NonAf (>60 ml/min/1.73 sqM) Glucose (74-99) mg/dL Calcium (8.4-10.2) mg/dL Magnesium (1.6-2.3) mg/dL Total Bilirubin (0.2-1.3) mg/dL AST (14-36) U/L ALT (9-52) U/L Alkaline Phosphatase (38-126) U/L Troponin I 0.032 (0.000-0.034) ng/mL NT-Pro-B Natriuret Pep 6300 pg/mL Total Protein (6.3-8.2) g/dL Albumin (3.5-5.0) g/dL - EKG Data EKG Comments: EKG demonstrates a sinus tachycardia with a ventricular rate of 101. WA interval 154. QRS 92. QTC 4:30. There are no acute ST segment elevations or depressions concerning for ischemic changes Critical Care Time Critical Care Time: Yes Total Critical Care Time: 35 (mins) Disposition Clinical Impression: Congestive cardiac failure, Leukocytosis, Elevated d-dimer, Pneumonia Disposition: ADMITTED IP TO THIS [facility] Condition: Serious Is patient prescribed a controlled substance at d/c from ED?: No Decision to Admit Reason: Admit from EC Decision Date: 07/04/19 Decision Time: 01:43
[2019-07-03 21:51] LABS: Prothrombin Time 10.3 sec (9.0-12.0)
[2019-07-03 21:52] LABS: ABG Base Excess -2.1 mmol/L; ABG HCO3 24 mmol/L (21-25); ABG Oxygen Saturation 99.5 % (94-97); ABG PCO2 44 mmHg (35-45); ABG PH 7.34 (7.35-7.45); ABG PO2 152 mmHg (83-108); ABG TCO2 25 mmol/L (19-24); Allen Test Performed? Yes
[2019-07-03 21:58] LABS: Albumin 4.2 g/dL (3.5-5.0); Calcium 9.1 mg/dL (8.4-10.2); Magnesium 1.8 mg/dL (1.6-2.3); Potassium 4.6 mmol/L (3.5-5.1); Total Bilirubin 0.4 mg/dL (0.2-1.3); Total Protein 7.2 g/dL (6.3-8.2)
[2019-07-03 22:28] LABS: D-Dimer 4.35 mg/L FEU (<0.60)
--- NOTE | 2019-07-03 23:23 | CT ---
EXAMINATION TYPE: CT chest angio for PE DATE OF EXAM: 07/03/2019 COMPARISON: None HISTORY: elevated d-dimer CT DLP: 655.8 mGycm Automated exposure control for dose reduction was used. CONTRAST: CT Chest for pulmonary embolism performed with with IV Contrast, patient injected with 70 mL of Isovu e 370. There are 3-D post processed images. FINDINGS: There are mild to moderate bilateral pleural effusions. There is bilateral lower lobe pulmonary infil trates and atelectasis. Heart is slightly enlarged. There is no pericardial effusion. There is pulmon suman interstitial edema. Thoracic aorta is atheromatous. There is no aneurysm or dissection. There is normal contrast opacific ation of the pulmonary arteries. I see no filling defects. Upper abdominal soft tissues are intact. T here is no mediastinal mass. There are some mediastinal peritracheal lymph nodes that measure up to 1 .5 cm. There is 1.5 cm subcarinal lymph node. There are no hilar masses. There is spurring in the tho racic spine. IMPRESSION: No evidence of pulmonary embolism. Cardiomegaly with pleural effusions and pulmonary infiltrates and pulmonary edema probably from congestive heart failure. Nonspecific mediastinal lymph nodes.
[2019-07-04] MEDS ORDERED: NITROGLYCERIN-D5W PMX 50 MG in DEXTROSE/WATER 1 250ML.BAG IV ONE (00:49)
[2019-07-04] MEDS ORDERED: AZITHROMYCIN 500 MG in SODIUM CHLORIDE 0.9% 250 ML IVPB STA (00:58)
[2019-07-04] MEDS ORDERED: cefTRIAXone IN SWFI 1,000 MG/10 ML SYRINGE IVP STA (00:58)
[2019-07-04] MEDS ORDERED: FUROSEMIDE 10 MG/ML 4 ML VIAL IV STA (01:56)
[2019-07-04] MEDS ORDERED: NALOXONE 0.4 MG/ML 1 ML VIAL IV PRN (01:57)
[2019-07-04] MEDS ORDERED: LORazepam 2 MG/ML INJ IV STA (03:44)
[2019-07-04 06:07] LABS: Glucose,Whole Blood 176 mg/dL (75-99)
[2019-07-04] MEDS: FUROSEMIDE 10 MG/ML 4 ML VIAL IV SCH ×2 (06:44→20:09)
[2019-07-04] MEDS: NITROGLYCERIN OINT 1 INCH/GM PACKET TOPICAL SCH ×2 (06:44→16:15)
[2019-07-04] MEDS ORDERED: amLODIPine 5 MG TAB PO SCH ×2 (07:00→21:00)
[2019-07-04] MEDS: NITROPRUSSIDE 50 MG in DEXTROSE 5% IN WATER 250 ML IV SCH ×6 (07:10→12:16)
[2019-07-04] MEDS: IPRATROPIUM-ALBUTEROL 3 ML NEB INHALATION SCH ×4 (07:24→19:20)
[2019-07-04 07:55] LABS: Glucose,Whole Blood 169 mg/dL (75-99)
[2019-07-04] MEDS: PANTOPRAZOLE 40 MG TABLET PO SCH (08:00)
[2019-07-04] MEDS: traMADol 50 MG TAB PO PRN (08:00)
[2019-07-04] MEDS: INSULIN ASPART (NovoLOG) 100 UNIT/ML VIAL SQ SCH ×4 (08:05→20:15)
--- NOTE | 2019-07-04 08:20 | XR ---
EXAMINATION TYPE: XR chest 1V portable DATE OF EXAM: 07/04/2019 COMPARISON: Prior CT 07/03/2019 HISTORY: Shortness of breath TECHNIQUE: Single frontal view of the chest is obtained. FINDINGS: Findings are similar to CT. The heart is enlarged. There is prominence of interstitium and central vascularity. No pneumothorax. Increased basilar density is noted, there is perihilar airspac e disease. The aorta is dense. There are overlying cardiac leads. IMPRESSION: Correlate for congestive heart failure with pleural effusions.
[2019-07-04 08:33] VITALS: BMI 36.8
[2019-07-04 08:48] LABS: Basophils % (A) 0 %; Eosinophils # (A) 0.1 k/uL (0-0.7); Eosinophils % (A) 1 %; HCT 27.7 % (34.0-46.0); HGB 9.3 gm/dL (11.4-16.0); Lymphocytes # (A) 0.9 k/uL (1.0-4.8); Lymphocytes % (A) 6 %; MCH 29.5 pg (25.0-35.0); MCHC 33.5 g/dL (31.0-37.0); MCV 87.9 fL (80.0-100.0); Mean Platelet Volume 6.9; Monocytes # (A) 1.1 k/uL (0-1.0); Monocytes % (A) 7 %; Neutrophils # (A) 12.9 k/uL (1.3-7.7); Neutrophils % (A) 85 %; Platelet Count 315 k/uL (150-450); RBC 3.15 m/uL (3.80-5.40); WBC 15.2 k/uL (3.8-10.6)
[2019-07-04 08:51] LABS: Calcium 8.6 mg/dL (8.4-10.2); Magnesium 1.9 mg/dL (1.6-2.3)
[2019-07-04] MEDS ORDERED: LOSARTAN-HCTZ 50-12.5 MG 1 EACH TAB PO SCH (09:00)
[2019-07-04] MEDS ORDERED: NON FORMULARY DRUG (L.Acidoph,Paracasei, B.Lactis [Probiotic] 1 CAP) PO SCH (09:00)
[2019-07-04] MEDS ORDERED: FAMOTIDINE 20 MG TAB PO SCH (09:00)
[2019-07-04] MEDS: HEPARIN SODIUM,PORCINE 5,000 UNIT/ML 1 ML VIAL SQ SCH ×2 (09:48→10:00)
[2019-07-04] MEDS: CALCIUM CARBONATE 500 MG CHEWABLE PO SCH (09:48)
[2019-07-04] MEDS: CHOLECALCIFEROL 1,000 UNIT TAB PO SCH (09:50)
--- NOTE | 2019-07-04 10:15 | CONS ---
CONSULTATION PULMONARY/CRITICAL CARE CONSULTATION: DATE OF CONSULTATION: July 04, 2019 This is a 79-year-old female who presents to the emergency room via wheelchair by her family with complaints of shortness of breath. The patient apparently was evaluated there and was found to have shortness of breath for a few days prior to admission and had apparently been getting worse. She apparently could not walk across the room without being short of breath. She apparently also had some cough. There is also some history of possible chills. She apparently denied any contact with any sick individuals. She apparently went to see her primary doctor who gave her prescription for steroids and Zithromax. Despite taking these medications, her shortness of breath got worse. She apparently denied any history of congestive heart failure, but was found to have hypertensive urgency and heart failure when evaluated in the emergency room. Currently, she is on BiPAP at 12 and 6 and 50%. She was on IV nitroglycerin for blood pressure control and it was apparently switched to Nipride at 2.5 mcg/kg per minute. She is not receiving any IV fluids. She apparently has a history of hypertension, diverticular disease, bowel resection, cholecystectomy, GERD, and a prior history of extended spectrum beta lactamase producing infection. Currently, she is resting relatively comfortably. She apparently is doing better in the last couple of hours since she has been here in the ICU. HOME MEDICATIONS: Her home medications include losartan/hydrochlorothiazide, omeprazole, lactobacillus acidophilus, prednisone with a taper, tramadol, Zithromax, biotin, calcium carbonate and vitamin D3. ALLERGIES: Allergies are ADHESIVE TAPE and CIPROFLOXACIN. MEDICAL HISTORY: Medical history is positive for hypertension, diverticular disease, bowel resection, cholecystectomy, and GERD. She has a prior history of extended spectrum beta lactamase producing infection. She also has history of dermatitis. SURGICAL HISTORY: Her surgical history includes bowel resection, cholecystectomy, hernia repair, hysterectomy, and tonsillectomy. She has also had cataract surgery and heel spur surgery. SOCIAL HISTORY: Social history is positive for previous tobacco use. She drinks occasionally. No illicit drug use. FAMILY HISTORY: Family history is unremarkable. Mother and father were healthy according to her. REVIEW OF SYSTEMS: CONSTITUTIONAL: Negative. NEUROLOGIC: Negative. HEENT: Negative. CARDIOVASCULAR: Negative. PULMONARY: Shortness of breath, particularly on exertion and cough. GI: Negative. : Negative. RHEUMATOLOGIC: Negative. IMMUNOLOGIC: Negative. ENDOCRINOLOGIC: Negative. DERMATOLOGIC: Negative. PHYSICAL EXAMINATION: VITAL SIGNS: Current vital signs include a temperature of 97.2, heart rate 89, respiratory rate 15, blood pressure 176/71, mean 106, and saturations of 99% on the BiPAP at 12 and 6 and 50%. GENERAL: Appears in no acute distress. Looks comfortable. HEENT: Examination is grossly unremarkable. BiPAP mask in place. NECK: Supple. Full range of motion. No adenopathy, thyromegaly or neck vein distention. CARDIOVASCULAR: Examination reveals regular rhythm and rate. Heart rate about 85 beats per minute. S1, S2 normal. Heart sounds are distant. No distinct murmur. LUNGS: Reveal bibasilar crackles. No wheezes or rhonchi. Breath sounds equal. ABDOMEN: Soft. Bowel sounds are heard. EXTREMITIES: Are intact. Minimal edema. No cyanosis or clubbing. SKIN: Without rash. NEUROLOGIC: Examination is brief but nonfocal. LABS: Labs are reviewed. White count 25.3, hemoglobin 9.7, hematocrit 31.4, platelet count 454,000. PT, INR was 10.3 and 1.0. PTT is 25. D-dimer 4.35. Blood gases show pO2 of 152, pCO2 of 44, pH is 7.34. This blood gas is consistent with hyperoxia and mild metabolic acidosis. Sodium 140, potassium 4.6, chloride 105, CO2 is 20. Anion gap is 15. BUN and creatinine were 50 and 1.46. These electrolytes are consistent with a mild anion gap metabolic acidosis. Her N-terminal proBNP was 6300. Her troponins were 0.032 and 0.656. The rest of her labs are reviewed. A CT angiogram and chest x-ray were consistent with fluid overload/CHF. There is no evidence of pulmonary embolism. MEDICATIONS: Current medications are reviewed. She is on amlodipine, Tums, vitamin D3, famotidine, Lasix, subcu heparin, insulin, updrafts, Hyzaar, Solu-Medrol, Narcan, nitroglycerin ointment, Nipride, Protonix and Ultram. ASSESSMENT: 1. Shortness of breath, secondary to congestive heart failure, currently being evaluated by Cardiology. 2. Hypertensive urgency/emergency, currently on IV Nipride. 3. History of hypertension. 4. Diverticular disease. 5. History of gastroesophageal reflux disease. 6. Previous bowel resection. 7. Cholecystectomy. 8. Previous history of extended spectrum beta lactamase producing infection. 9. No clear-cut evidence of infection at this time. 10.Possible underlying chronic obstructive pulmonary disease from previous tobacco use. PLAN: I do not believe she needs steroids. I will discontinue those. The rest of the medications seem appropriate. No additional recommendations are made. We will continue to follow. Later today, we will be discontinue the BiPAP and place her on nasal prongs. She was started on Nipride by Cardiology for better blood pressure control. Additional recommendations and suggestions are forthcoming. Prognosis is guarded. MMODL / IJN: [id number] /
--- NOTE | 2019-07-04 11:01 | ECHOF ---
Referral Reason:AECF MEASUREMENTS -------- HEIGHT: 157.5 cm WEIGHT: 90.7 kg BP: 201/102 RVIDd: 2.5 cm (< 3.3) IVSd: 1.6 cm (0.6 - 1.1) LVIDd: 3.5 cm (3.9 - 5.3) LVPWd: 1.4 cm (0.6 - 1.1) IVSs: 1.6 cm LVIDs: 2.7 cm LVPWs: 1.7 cm LAESV Index (A-L): 28.69 ml/m Ao Diam: 2.7 cm (2.0 - 3.7) AV Cusp: 1.6 cm (1.5 - 2.6) LA Diam: 2.7 cm (2.7 - 3.8) MV EXCURSION: 9.718 mm (> 18.000) MV EF SLOPE: 47 mm/s (70 - 150) EPSS: 1.1 cm MV E Jimmie: 0.95 m/s MV DecT: 238 ms MV A Jimmie: 1.28 m/s MV E/A Ratio: 0.74 RAP: 5.00 mmHg RVSP: 11.33 mmHg FINDINGS -------- Sinus rhythm. This was a technically good study. The left ventricular size is normal. There is moderate concentric left ventricular hypertrophy. O verall left ventricular systolic function is normal with, an EF between 55 - 60 %. Normal LAP Grade 1 Diastolic Dysfunction. The right ventricle is normal in size. The right ventricular systolic function is normal. The left atrial size is normal. Normal LA size by volume 22+/-6 ml/m2. The right atrial size is normal. Interatrial and interventricular septum intact. The aortic valve is trileaflet and appears structurally normal. The mitral valve is normal. Mild mitral regurgitation is present. The tricuspid valve appears structurally normal. Mild tricuspid regurgitation present. Right vent ricular systolic pressure is normal at < 35 mmHg. There is no pulmonic regurgitation present. The aortic root size is normal. Normal inferior vena cava with normal inspiratory collapse consistent with estimated right atrial pre ssure of 5 mmHg. All pulmonary veins appear normal. The flow patterns, measured by Doppler, appear normal. There is a small, generalized pericardial effusion present. CONCLUSIONS -------- 1. Sinus rhythm. 2. This was a technically good study. 3. The left ventricular size is normal. 4. There is moderate concentric left ventricular hypertrophy. 5. Overall left ventricular systolic function is normal with, an EF between 55 - 60 %. 6. Normal LAP Grade 1 Diastolic Dysfunction. 7. The right ventricle is normal in size. 8. The right ventricular systolic function is normal. 9. The left atrial size is normal. 10. Normal LA size by volume 22+/-6 ml/m2. 11. The right atrial size is normal. 12. Interatrial and interventricular septum intact. 13. The aortic valve is trileaflet and appears structurally normal. 14. The mitral valve is normal. 15. Mild mitral regurgitation is present. 16. The tricuspid valve appears structurally normal. 17. Mild tricuspid regurgitation present. 18. Right ventricular systolic pressure is normal at < 35 mmHg. 19. There is no pulmonic regurgitation present. 20. The aortic root size is normal. 21. Normal inferior vena cava with normal inspiratory collapse consistent with estimated right atrial pressure of 5 mmHg. 22. All pulmonary veins appear normal. 23. The flow patterns, measured by Doppler, appear normal. 24. There is a small, generalized pericardial effusion present. PLANNING ENGINEER: Roxanna Dominguez RDCS
[2019-07-04] MEDS ORDERED: LOSARTAN 50 MG TAB PO STA (11:55)
[2019-07-04] MEDS ORDERED: methylPREDNISolone SOD SUCCI 125 MG/2 ML VIAL IV SCH (12:00)
[2019-07-04] MEDS: HYDROmorphone 0.5 MG/0.5 ML SYRINGE IVP PRN ×2 (12:13→16:20)
[2019-07-04] MEDS: hydrALAZINE HCL 50 MG TAB PO SCH ×3 (12:17→20:51)
--- NOTE | 2019-07-04 12:28 | US ---
EXAMINATION TYPE: US venous doppler duplex LE BI DATE OF EXAM: 07/04/2019 11:35 AM COMPARISON: NONE CLINICAL HISTORY: leg pain. Bilateral leg pain x couple days, exam done portable in ICU. SIDE PERFORMED: Bilateral TECHNIQUE: The lower extremity deep venous system is examined utilizing real time linear array sonog sera with graded compression, doppler sonography and color-flow sonography. VESSELS IMAGED: External Iliac Vein (EIV) Common Femoral Vein Deep Femoral Vein Greater Saphenous Vein * Femoral Vein Popliteal Vein Small Saphenous Vein * Proximal Calf Veins (* superficial vessels) Difficult and limited study due to patient body habitus Right Leg: Appears negative for DVT Left Leg: Appears negative for DVT Grayscale, color doppler, spectral doppler imaging performed of the deep veins of the bilateral lower extremities. There is normal flow, compressibility, vascular waveforms. [id number] subcutaneous edema popliteal region bilaterally. IMPRESSION: No ultrasound evidence for acute DVT in either lower extremity.
[2019-07-04] MEDS ORDERED: HEPARIN SODIUM,PORCINE 5,000 UNIT/ML 1 ML VIAL IV PRN (12:34)
--- NOTE | 2019-07-04 12:40 | XR ---
Right hip HISTORY: Right hip pain Single frontal view of the right hip Correlation plain film 11/24/2016 No significant interval change. Technique is somewhat limited. Bone mineralization is reduced. No fra cture or dislocation. Joint space is mildly reduced and alignment is maintained. Suspect mild margina l spurring. Suspect overlying artifact. IMPRESSION: Mild osteoarthritis. Osteopenia. Limited technique.
[2019-07-04 12:45] LABS: Prothrombin Time 10.6 sec (9.0-12.0)
--- NOTE | 2019-07-04 12:48 | P.HPIM ---
History of Present Illness H&P Date: 07/04/19 Chief Complaint: Acute respiratory failure, fluid overload possible heart fa ilure, COPD exac 79-year-old female with multiple medical problem presented to [facility] at [facility] complaining of significant shortness of breath for the last a few days. Admission with significant increased weight with slight chest tightness and pressure nausea low-grade temperature with some chills at the time. Patient denies any traveling history recently he was seen by her primary care physician Dr. Donahue and prescribed azithromycin apparently took the medication which did not make any different. Patient become sicker and sicker finally not been able to lay down flat not been able to ambulate walk and cough become more foamy and productive. Ended up coming to [facility] department at [facility] where was seen and evaluated she had significant hypoxia and very tachypnea and tachycardia ended up going for CTA did not show any PE but showed significant finding consistent with the fluid overload and early pulmonary edema. Lasix was giving patient was placed on BiPAP at the time her troponin came back mildly elevated as well was admitted to the ICU on IV Rocephin and Zithromax she was on IV nitro initially was switched to night pride 2.5 g and consult pulmonary and cardiology. Review of Systems CONSTITUTIONAL: Well-developed, still have BiPAP on and look in mild respiratory distress. Mildly overweight EYES: No icterus sclerae, no conjunctivitis. EARS, NOSE, MOUTH, THROAT, and FACE: No sore throat, lymphadenopathy, carotid bruits or deformity. RESPIRATORY: Positive shortness of breath cough wheezes significant dyspnea. CARDIOVASCULAR: No CP, Palpitation, PND, Orthopnea, or angina. GASTROINTESTINAL: No Abd pain, Nausea or vomiting, no Diarrhea or constipation, No GI Bleed, no distention or masses. GENITOURINARY: Negative for Hematuria or UTI, no kidney stones. INTEGUMENT/BREAST: Negative for any muscular injury with mild osteoarthritis.. HEMATOLOGIC/LYMPHATIC: Negative for bleed or purpura. MUSCULOSKELTAL: Significant pain and discomfort in the right groin and leg area including the hip area itself with no recent injury no bruises. NEURLOGICAL: No LOC, Sz or syncope, blurred vision dizziness or abnormality.. BEHAVIORAL/PSYCH: Negative. ENDOCRINE: Negative. Past Medical History Past Medical History: GERD/Reflux, Hypertension Additional Past Medical History / Comment(s): Eosinophilic fasciitis History of Any Multi-Drug Resistant Organisms: ESBL Date of last positivie culture/infection: 06/28/18 MDRO Source:: Urine Past Surgical History: Bowel Resection, Cholecystectomy, Hernia Repair, Hysterectomy, Tonsillectomy Additional Past Surgical History / Comment(s): heel spurs, cataracts Past Anesthesia/Blood Transfusion Reactions: No Reported Reaction Past Psychological History: No Psychological Hx Reported Smoking Status: Former smoker Past Alcohol Use History: Occasional Additional Past Alcohol Use History / Comment(s): 2 drinks per week on average Past Drug Use History: None Reported - Past Family History Mother Family Medical History: Myocardial Infarction (IN) Medications and Allergies Home Medications Medication Instructions Recorded Confirmed Type Losartan/Hydrochlorothiazide 1 tab PO DAILY 05/01/14 07/03/19 History [Hyzaar 100-25 Tablet] Omeprazole [PriLOSEC] 20 mg PO DAILY 05/01/14 07/03/19 History L.acidoph,Paracasei, B.lactis 1 cap PO DAILY 06/28/18 07/03/19 History [Probiotic] predniSONE See Taper PO DAILY 06/28/18 07/03/19 History traMADol HCL [Ultram] 50 - 100 mg PO TID PRN 06/28/18 07/03/19 History Azithromycin [Zithromax Z-pack] See Taper PO DIRECTED 07/03/19 07/03/19 History Biotin 10,000 mcg PO DAILY 07/03/19 07/03/19 History Calcium Carbonate [Calcium] 600 mg PO DAILY 07/03/19 07/03/19 History Cholecalciferol [Vitamin D3 (25 5,000 unit PO DAILY 07/03/19 07/03/19 History Mcg = 1000 Iu)] Allergies Allergy/AdvReac Type Severity Reaction Status Date / Time levofloxacin [From Levaquin] Allergy Rash/Hives Verified 07/04/19 08:10 sulfamethoxazole Allergy Rash/Hives Verified 07/04/19 08:10 [From Bactrim] trimethoprim [From Bactrim] Allergy Rash/Hives Verified 07/04/19 08:10 adhesive tape AdvReac Rash/Hives Verified 07/03/19 20:49 ciprofloxacin [From Cipro] AdvReac Cough Verified 07/03/19 20:49 ciprofloxacin HCl AdvReac Cough Verified 07/03/19 20:49 [facility] Physical Exam Vitals: Vital Signs Temp Pulse Resp BP Pulse Ox 07/04/19 12:00 99.8 F H 94 16 146/63 98 07/04/19 11:38 90 07/04/19 11:30 90 19 138/59 98 07/04/19 11:19 90 07/04/19 11:00 95 35 H 146/65 96 07/04/19 10:30 89 17 140/60 07/04/19 10:00 99 19 126/52 97 07/04/19 09:30 85 18 140/55 07/04/19 09:00 87 19 187/91 100 07/04/19 08:40 96 31 H 167/70 96 07/04/19 08:00 97 15 176/71 99 07/04/19 07:34 89 07/04/19 07:30 91 16 188/83 07/04/19 07:25 92 07/04/19 07:15 90 20 192/89 07/04/19 07:00 79 19 94 L 07/04/19 06:45 87 12 201/102 07/04/19 06:30 87 22 201/102 97 07/04/19 06:15 86 19 199/101 07/04/19 05:54 97.2 F L 85 20 180/89 100 07/04/19 05:52 116 H 32 H 188/111 97 07/04/19 05:00 74 20 150/71 97 07/04/19 04:09 88 26 H 178/93 96 07/04/19 03:43 102 H 28 H 188/100 98 07/04/19 03:00 122 H 32 H 197/113 07/04/19 02:55 101 H 30 H 188/11 98 07/04/19 02:43 105 H 18 199/107 97 07/04/19 02:37 118 H 32 H 199/107 98 07/04/19 02:00 125 H 32 H 199/89 97 07/04/19 01:29 126 H 32 H 193/93 97 07/04/19 00:43 118 H 32 H 203/103 97 07/04/19 00:01 124 H 32 H 200/101 97 07/03/19 23:14 124 H 34 H 197/101 97 07/03/19 22:08 89 07/03/19 21:57 93 07/03/19 20:34 27 H 07/03/19 20:26 98.0 F 118 H 28 H 90 L Intake and Output 07/03/19 07/04/19 07/04/19 22:59 06:59 14:59 Intake Total 9.70 527.049 Output Total 2200 1185 Balance -2190.30 -657.951 Intake: IV 10 0.9NS 10 Intake, IV Titration 9.70 517.049 Amount Nitroglycerin-D5w Pmx 50 9.70 mg In Dextrose/Water 1 250ml.bag @ 10 MCG/MIN 3 mls/hr IV .Q24H [facility] Rx#: [id number] Nitroprusside 50 mg In 517.049 Dextrose 5% in Water 250 ml @ Titrate IV .Q0M [facility] Rx#:[id number] Output: Urine 2200 1185 Uretheral (Renteria) 700 Other: Voiding Method Indwelling Catheter Indwelling Catheter Weight 90.718 kg General Appearance: Alert, cooperative, has BiPAP on mildly overweight look in mild distress. Neck HEENT: Supple, no lymphadenopathy, no thyroid enlargement, no carotid bruits. Lungs: Decreased breath sound bilaterally with fine crackles in the bases with wheezes and rhonchi, no deformity. Chest Wall: Decrease expansion with deep inspiration no tenderness and no deformity was found on exam, no costochondral pain or discomfort. Heart: Regular rate and rhythm, S1, S2 normal, mild tachycardia, no murmur, rub or gallop. Back: Symmetric, no curvature, ROM normal, no CVA tenderness. Abdomen: Soft, non-tender, bowel sounds active all four quadrants, no masses, no organomegaly. Extremities: Trace edema with significant pain and discomfort in the right groin area with slight discoloration from the knee down with significant stasis dermatitis which patient claims she had Eosinophilic Dermatitis Pulses: 2+ and symmetric. Skin: Skin color, texture, tugor normal, no rashes or lesions. Neurologic: Alert oriented x3 cranial nerves II through XII intact, no motor deficit, no abnormal balance or gait. Results CBC & Chem 7: 07/04/19 08:15 07/04/19 08:15 Labs: Abnormal Lab Results - Last 24 Hours (Table) 07/03/19 07/03/19 07/03/19 Range/Units 20:45 20:45 20:45 WBC 25.3 H (3.8-10.6) k/uL RBC 3.50 L (3.80-5.40) m/uL Hgb 9.7 L (11.4-16.0) gm/dL Hct 31.4 L (34.0-46.0) % MCHC 30.9 L (31.0-37.0) g/dL Plt Count 454 H (150-450) k/uL Neutrophils # 22.2 H (1.3-7.7) k/uL Lymphocytes # (1.0-4.8) k/uL Monocytes # 1.3 H (0-1.0) k/uL D-Dimer 4.35 H (<0.60) mg/L FEU ABG pH (7.35-7.45) ABG pO2 (83-108) mmHg ABG Total CO2 (19-24) mmol/L ABG O2 Saturation (94-97) % Carbon Dioxide 20 L (22-30) mmol/L BUN 50 H (7-17) mg/dL Creatinine 1.46 H (0.52-1.04) mg/dL Glucose 176 H (74-99) mg/dL POC Glucose (mg/dL) (75-99) mg/dL Troponin I (0.000-0.034) ng/mL 07/03/19 07/04/19 07/04/19 Range/Units 21:44 02:32 06:06 WBC (3.8-10.6) k/uL RBC (3.80-5.40) m/uL Hgb (11.4-16.0) gm/dL Hct (34.0-46.0) % MCHC (31.0-37.0) g/dL Plt Count (150-450) k/uL Neutrophils # (1.3-7.7) k/uL Lymphocytes # (1.0-4.8) k/uL Monocytes # (0-1.0) k/uL D-Dimer (<0.60) mg/L FEU ABG pH 7.34 L (7.35-7.45) ABG pO2 152 H (83-108) mmHg ABG Total CO2 25 H (19-24) mmol/L ABG O2 Saturation 99.5 H (94-97) % Carbon Dioxide (22-30) mmol/L BUN (7-17) mg/dL Creatinine (0.52-1.04) mg/dL Glucose (74-99) mg/dL POC Glucose (mg/dL) 176 H (75-99) mg/dL Troponin I 0.656 H* (0.000-0.034) ng/mL 07/04/19 07/04/19 07/04/19 Range/Units 07:54 08:15 08:15 WBC 15.2 H (3.8-10.6) k/uL RBC 3.15 L (3.80-5.40) m/uL Hgb 9.3 L (11.4-16.0) gm/dL Hct 27.7 L (34.0-46.0) % MCHC (31.0-37.0) g/dL Plt Count (150-450) k/uL Neutrophils # 12.9 H (1.3-7.7) k/uL Lymphocytes # 0.9 L (1.0-4.8) k/uL Monocytes # 1.1 H (0-1.0) k/uL D-Dimer (<0.60) mg/L FEU ABG pH (7.35-7.45) ABG pO2 (83-108) mmHg ABG Total CO2 (19-24) mmol/L ABG O2 Saturation (94-97) % Carbon Dioxide (22-30) mmol/L BUN (7-17) mg/dL Creatinine (0.52-1.04) mg/dL Glucose (74-99) mg/dL POC Glucose (mg/dL) 169 H (75-99) mg/dL Troponin I 0.749 H* (0.000-0.034) ng/mL 07/04/19 Range/Units 08:15 WBC (3.8-10.6) k/uL RBC (3.80-5.40) m/uL Hgb (11.4-16.0) gm/dL Hct (34.0-46.0) % MCHC (31.0-37.0) g/dL Plt Count (150-450) k/uL Neutrophils # (1.3-7.7) k/uL Lymphocytes # (1.0-4.8) k/uL Monocytes # (0-1.0) k/uL D-Dimer (<0.60) mg/L FEU ABG pH (7.35-7.45) ABG pO2 (83-108) mmHg ABG Total CO2 (19-24) mmol/L ABG O2 Saturation (94-97) % Carbon Dioxide (22-30) mmol/L BUN 53 H (7-17) mg/dL Creatinine 1.39 H (0.52-1.04) mg/dL Glucose 169 H (74-99) mg/dL POC Glucose (mg/dL) (75-99) mg/dL Troponin I (0.000-0.034) ng/mL Thrombosis Risk Factor Assmnt - DVT/VTE Prophylaxis DVT/VTE Prophylaxis: Pharmacologic Prophylaxis ordered, Mechanical Prophylaxis ordered - Choose All That Apply Any of the Below Risk Factors Present?: Yes Each Factor Represents 1 point: Heart failure (<1month), Swollen legs (current) Other Risk Factors: Yes Each Risk Factor Represents 2 Points: Patient confined to bed Each Risk Factor Represents 3 Points: Age 75 years or older Other congenital or acquired thrombophilia - If yes, enter type in comment: No Thrombosis Risk Factor Assessment Total Risk Factor Score: 7 Thrombosis Risk Factor Assessment Level: High Risk Assessment and Plan Plan: 1 acute respiratory failure: Combination of cardiac and pulmonary, with her CTA more consistent with abnormality related to heart failure echocardiogram was requested continue to watch her troponin cardiology consultation as well. 2 possible acute congestive heart failure most likely systolic dysfunction with mild diastolic dysfunction awaiting for ROM echocardiogram result continue diuretics for now continue supportive care with BiPAP oxygen and updraft. 3 reactive airway/COPD: Patient will continue on steroid along with O2 and updraft with her history of Eosinophilic Dermatitis abnormality watch for any Eosinophilic Pneumonia. We'll consult pulmonary and highlight this and her history if no up abnormality found with a current testing patient might benefit from bronchoscopy and lavage for tissue in the meanwhile other possibility such as mycoplasma or Haemophilus influenza with legionnaire should be excluded testing were requested from blood sputum and urine currently. 4 hypertension: Remain on Hyzaar continue medication. 5 severe right hip pain not acute etiology could be bursitis but rule out the possibility of avascular necrosis patient be seen orthopedic and x-ray was requested if needed a CAT scan of the hip can be arranged. 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 7 chronic pain syndrome: Patient has been on tramadol. 8 acute kidney injury with stage III chronic kidney disease: BUN/creatinine are elevated gentle hydration treat underlying watch the blood pressure repeat BUN/creatinine creatinine. 9 hyperglycemia: Patient will be on Accu-Chek with sliding scales coverage there steroid protocol. 10 DVT prophylaxis: Patient be on heparin 5000 units subcutaneous twice a day. 11 GI prophylaxis: Patient be on pantoprazole 40 mg daily. CODE STATUS: Full code. Admit patient to inpatient status for more than 2 nights.
[2019-07-04] MEDS: HEPARIN SOD,PORK IN 0.45% NACL 25,000 UNIT in 0.45% NACL 1 250ML.BAG IV SCH (12:59)
[2019-07-04 13:06] LABS: Glucose,Whole Blood 145 mg/dL (75-99)
--- NOTE | 2019-07-04 13:21 | CONS ---
CONSULTATION This is a 79-year-old lady with a known history of hypertension, hypercholesterolemia, who came into the hospital with shortness of breath of at least 4 to 5 day duration. Her main concern when she came into the hospital was that she could not catch her breath. She did not give any significant history. was at the bedside when she came in. She could hardly talk. She also had a productive cough with chills and after evaluation she was found to be having some accelerated hypertension with a blood pressure over 199/107 and she received some diuretics, oxygenation, felt better. I am seeing her in the ICU this morning and she is more comfortable. Denies any chest discomfort. She had only shortness of breath. No palpitations or syncope. However, her shortness of breath has improved after she arrived. PAST MEDICAL HISTORY: 1. Hypertension. 2. Gastroesophageal reflux disease. 3. No evidence of any prior myocardial infarction or CVA. 4. She is status post hysterectomy, cholecystectomy, bowel resection, hernia repair. ALLERGIES: She is allergic to CIPRO. MEDICATIONS: Medications include losartan HCTZ 100/25 one tablet daily, Prilosec 20 mg daily, prednisone tapering with recent Zithromax and prednisone combination for bronchitis. She also takes vitamin supplements. EKG revealed sinus tachycardia without acute changes. There was poor R-wave progression over precordial leads. PHYSICAL EXAMINATION: On examination, blood pressure was elevated at 190/100. Pulse rate was about 90 per minute. HEENT: Unremarkable. Fundus was not examined by me. Neck supple. There is JVD of 1 cm. No carotid bruit. Heart exam reveals S1, S2 with a soft systolic murmur at the base. No significant gallops. Lungs revealed a diminished air entry. Abdomen is distended. Lower extremities reveal diminished pulses. No edema. Central nervous system is normal. EKG revealed sinus mechanism, no acute changes, poor R-wave progression. Chest x-ray from this morning revealed a normal cardiac size with mild pulmonary vascular congestion with small pleural effusions. LABORATORY DATA: Laboratory data suggests that initial troponin is up to the 0.6 and went up to 0.7. The BNP is also up to 6300. Renal function is slightly abnormal at 1.46. Blood sugar is also elevated. D-dimer was up to 4.35. A CT angiography was performed, which did not reveal any evidence of pulmonary embolism and there was no aortic pathology. Nonspecific mediastinal lymph nodes were noted. IMPRESSION: 1. Accelerated hypertension. 2. Acute systolic heart failure secondary to accelerated hypertension. 3. [id number] myocardial infarction with an elevated troponin probably secondary to accelerated hypertension. 4. Acute bronchitis/reactive airway disease. RECOMMENDATIONS: I am recommending that we use Nipride intravenously to control the blood pressure, nitro paste, Norvasc orally. Obtain echocardiogram and also start her on intravenous heparin and based on clinical course, we will make further recommendation. After she has stabilized and we obtain echocardiogram, we should consider cardiac catheterization prior to discharge. We will also watch the renal function closely. Discussed my thoughts in detail with the patient. Thank you very much for the consult. MMODL / IJN: [id number] /
[2019-07-04 17:09] LABS: Glucose,Whole Blood 111 mg/dL (75-99)
[2019-07-04 20:16] LABS: Glucose,Whole Blood 104 mg/dL (75-99)
[2019-07-05] MEDS: NITROGLYCERIN OINT 1 INCH/GM PACKET TOPICAL SCH ×3 (00:15→17:18)
[2019-07-05 02:52] LABS: Basophils % (A) 0 %; Eosinophils # (A) 0.2 k/uL (0-0.7); Eosinophils % (A) 1 %; HGB 8.7 gm/dL (11.4-16.0); Lymphocytes # (A) 2.4 k/uL (1.0-4.8); Lymphocytes % (A) 15 %; MCH 29.4 pg (25.0-35.0); MCHC 33.5 g/dL (31.0-37.0); MCV 87.9 fL (80.0-100.0); Monocytes # (A) 1.5 k/uL (0-1.0); Monocytes % (A) 9 %; Neutrophils # (A) 12.1 k/uL (1.3-7.7); Neutrophils % (A) 73 %; Platelet Count 322 k/uL (150-450); RBC 2.96 m/uL (3.80-5.40); WBC 16.5 k/uL (3.8-10.6)
[2019-07-05 03:36] LABS: Albumin 3.2 g/dL (3.5-5.0); Total Bilirubin 0.4 mg/dL (0.2-1.3); Total Protein 5.7 g/dL (6.3-8.2)
[2019-07-05 03:56] LABS: Calcium 8.8 mg/dL (8.4-10.2); Potassium 4.1 mmol/L (3.5-5.1)
--- NOTE | 2019-07-05 06:05 | XR ---
EXAMINATION TYPE: XR chest 1V DATE OF EXAM: 07/05/2019 HISTORY: shortness of breath. REFERENCE: Previous study dated 07/04/2019. FINDINGS: There continues to be vascular congestion and mild interstitial change. Heart size upper li mits of normal. There are small, bilateral effusions. IMPRESSION: CONTINUING CHANGES OF MILD HEART FAILURE.
[2019-07-05 06:38] LABS: Glucose,Whole Blood 109 mg/dL (75-99)
[2019-07-05] MEDS: INSULIN ASPART (NovoLOG) 100 UNIT/ML VIAL SQ SCH ×4 (06:38→20:55)
[2019-07-05] MEDS: PANTOPRAZOLE 40 MG TABLET PO SCH (07:10)
[2019-07-05] MEDS: IPRATROPIUM-ALBUTEROL 3 ML NEB INHALATION SCH ×4 (07:30→20:21)
--- NOTE | 2019-07-05 08:09 | P.PN ---
Subjective Progress Note Date: 07/05/19 Principal diagnosis: Acute coronary syndrome This is a pleasant 79-year-old female patient with a past medical history significant for hypertension as well as dyslipidemia was admitted to the hospital with progressive dyspnea for the last few days area the patient was found to be severely hypertensive as well as. She was diagnosed was congestive heart failure exacerbation as well as hypertensive emergency. Also she was ruled in for acute coronary syndrome with mildly abnormal troponin. The EKG did not show any significant ST or T-wave abnormalities but it did show sinus tachycardia. The patient was started on Lasix IV. The echo revealed normal LV function with mild MR and mild TR. On follow-up with the patient today, she still short of breath. On examination she does have bilateral expiratory wheezing. Hemodynamically the pressure has improved with an average systolic blood pressure around 140-1 50 mmHg. She is tachycardic with a resting heart rate around 90s. She continues to be on Lasix IV at 40 mg twice a day. At this point, I am going to continue the current medical regimen. I am going to DC Norvasc and start the patient on Cardizem to control the heart rate. The plan is to proceed with a coronary angiogram in the next 24-48 hours if her creatinine continues to be stable. Severe underlying coronary artery disease the to be ruled out. Objective - Vital Signs Vital signs: Vital Signs Temp 98.3 F 07/05/19 04:00 Pulse 101 H 07/05/19 07:45 Resp 17 07/05/19 07:00 BP 149/58 07/05/19 07:00 Pulse Ox 98 07/05/19 07:33 Intake & Output 07/04/19 07/05/19 07/05/19 18:59 06:59 18:59 Intake Total 601.854 191 10 Output Total 1630 990 100 Balance -1028.146 -799 -90 Weight 91.1 kg Intake: IV 70 120 10 0.9NS 70 120 10 Intake, IV Titration 531.854 71 Amount Heparin Sod,Pork in 0.45% 71 NaCl 25,000 unit In 0.45 % NaCl 1 250ml.bag @ 11. 023 UNITS/KG/HR 10 mls/hr IV .Q24H [facility] Rx#: [id number] Nitroprusside 50 mg In 531.854 Dextrose 5% in Water 250 ml @ Titrate IV .Q0M [facility] Rx#:[id number] Output: Urine 1630 990 100 Other: Voiding Method Indwelling Catheter Indwelling Catheter # Bowel Movements 1 - Constitutional General appearance: Present: no acute distress - Respiratory Respiratory: bilateral: wheezing - Cardiovascular Rhythm: regular Heart sounds: normal: S1, S2 - Labs CBC & Chem 7: 07/05/19 02:39 07/05/19 02:39 Labs: Abnormal Lab Results - Last 24 Hours (Table) 07/04/19 07/04/19 07/04/19 Range/Units 08:15 08:15 08:15 WBC 15.2 H (3.8-10.6) k/uL RBC 3.15 L (3.80-5.40) m/uL Hgb 9.3 L (11.4-16.0) gm/dL Hct 27.7 L (34.0-46.0) % Neutrophils # 12.9 H (1.3-7.7) k/uL Lymphocytes # 0.9 L (1.0-4.8) k/uL Monocytes # 1.1 H (0-1.0) k/uL APTT (22.0-30.0) sec BUN 53 H (7-17) mg/dL Creatinine 1.39 H (0.52-1.04) mg/dL Glucose 169 H (74-99) mg/dL POC Glucose (mg/dL) (75-99) mg/dL Troponin I 0.749 H* (0.000-0.034) ng/mL Total Protein (6.3-8.2) g/dL Albumin (3.5-5.0) g/dL 07/04/19 07/04/19 07/04/19 Range/Units 13:04 17:08 18:51 WBC (3.8-10.6) k/uL RBC (3.80-5.40) m/uL Hgb (11.4-16.0) gm/dL Hct (34.0-46.0) % Neutrophils # (1.3-7.7) k/uL Lymphocytes # (1.0-4.8) k/uL Monocytes # (0-1.0) k/uL APTT 30.6 H (22.0-30.0) sec BUN (7-17) mg/dL Creatinine (0.52-1.04) mg/dL Glucose (74-99) mg/dL POC Glucose (mg/dL) 145 H 111 H (75-99) mg/dL Troponin I (0.000-0.034) ng/mL Total Protein (6.3-8.2) g/dL Albumin (3.5-5.0) g/dL 07/04/19 07/05/19 07/05/19 Range/Units 20:15 02:39 02:39 WBC 16.5 H (3.8-10.6) k/uL RBC 2.96 L (3.80-5.40) m/uL Hgb 8.7 L (11.4-16.0) gm/dL Hct 26.0 L (34.0-46.0) % Neutrophils # 12.1 H (1.3-7.7) k/uL Lymphocytes # (1.0-4.8) k/uL Monocytes # 1.5 H (0-1.0) k/uL APTT (22.0-30.0) sec BUN 54 H (7-17) mg/dL Creatinine 1.74 H (0.52-1.04) mg/dL Glucose 109 H (74-99) mg/dL POC Glucose (mg/dL) 104 H (75-99) mg/dL Troponin I (0.000-0.034) ng/mL Total Protein 5.7 L (6.3-8.2) g/dL Albumin 3.2 L (3.5-5.0) g/dL 07/05/19 07/05/19 Range/Units 02:39 06:37 WBC (3.8-10.6) k/uL RBC (3.80-5.40) m/uL Hgb (11.4-16.0) gm/dL Hct (34.0-46.0) % Neutrophils # (1.3-7.7) k/uL Lymphocytes # (1.0-4.8) k/uL Monocytes # (0-1.0) k/uL APTT 52.4 H (22.0-30.0) sec BUN (7-17) mg/dL Creatinine (0.52-1.04) mg/dL Glucose (74-99) mg/dL POC Glucose (mg/dL) 109 H (75-99) mg/dL Troponin I (0.000-0.034) ng/mL Total Protein (6.3-8.2) g/dL Albumin (3.5-5.0) g/dL Microbiology - Last 24 Hours (Table) 07/03/19 20:45 Blood Culture - Preliminary Blood No Growth after 24 hours 07/04/19 07:50 Urine Culture - Preliminary Urine,Catheterized Assessment and Plan Assessment: Assessment #1 congestive heart failure exacerbation secondary to diastolic dysfunction #2 possible component of COPD exacerbation #3 hypertensive emergency #4 acute non-ST elevation GA Plan #1 DC Norvasc and start the patient on Cardizem #2 continue the rest of her current medical regimen #3 the echo was reviewed and showed normal LV function with mild MR and mild TR #4 coronary angiogram to be performed in the next 24-48 hours
--- NOTE | 2019-07-05 08:16 | P.PN ---
Subjective Progress Note Date: 07/05/19 79-year-old female with multiple medical problem presented to [facility] complaining of significant shortness of breath for the last a few days. Admission with significant increased weight with slight chest tightness and pressure nausea low-grade temperature with some chills at the time. Patient denies any traveling history recently he was seen by her primary care physician Dr. Donahue and prescribed azithromycin apparently took the medication which did not make any different. Patient become sicker and sicker finally not been able to lay down flat not been able to ambulate walk and cough become more foamy and productive. Ended up coming to [facility] at [facility] where was seen and evaluated she had significant hypoxia and very tachypnea and tachycardia ended up going for CTA did not show any PE but showed significant finding consistent with the fluid overload and early pulmonary edema. Lasix was giving patient was placed on BiPAP at the time her troponin came back mildly elevated as well was admitted to the ICU on IV Rocephin and Zithromax she was on IV nitro initially was switched to night pride 2.5 g and consult pulmonary and cardiology. 07/05/19: Patient is sitting up in in chair stating that her breathing is improved and she is feeling better. Patient denies any chest pain or shortness of breath. She does not lay flat, patient has not been any activity that has caused shortness of breath at this time. She has a positive cough however no sputum. Patient is afebrile vital signs stable, 93% on room air. WCC 16.5, hemoglobin 8.7, P1 has increased to 54, creatinine 1.74. Patient was seen by orthopedics who does not feel that the patient needs any injections at this time for right hip bursitis, this can be done in outpatient setting. Patient may be weightbearing as tolerated. No surgical intervention at this time. Review of Systems CONSTITUTIONAL: Well-developed, no acute distress, Mildly overweight EYES: No icterus sclerae, no conjunctivitis. EARS, NOSE, MOUTH, THROAT, and FACE: No sore throat, lymphadenopathy, carotid bruits or deformity. RESPIRATORY: No shortness of breath reports cough reports wheezes no significant dyspnea. CARDIOVASCULAR: No CP, Palpitation, PND, Orthopnea, or angina. GASTROINTESTINAL: No Abd pain, Nausea or vomiting, no Diarrhea or constipation, No GI Bleed, no distention or masses. GENITOURINARY: Negative for Hematuria or UTI, no kidney stones. INTEGUMENT/BREAST: Negative for any muscular injury with mild osteoarthritis.. HEMATOLOGIC/LYMPHATIC: Negative for bleed or purpura. MUSCULOSKELTAL: Significant pain and discomfort in the right groin and leg area including the hip area itself with no recent injury no bruises. NEURLOGICAL: No LOC, Sz or syncope, blurred vision dizziness or abnormality.. BEHAVIORAL/PSYCH: Negative. ENDOCRINE: Negative. Objective - Vital Signs Vital signs: Vital Signs Temp 98.3 F 07/05/19 04:00 Pulse 101 H 07/05/19 07:45 Resp 17 07/05/19 07:00 BP 149/58 07/05/19 07:00 Pulse Ox 98 07/05/19 07:33 Intake & Output 07/04/19 07/05/19 07/05/19 18:59 06:59 18:59 Intake Total 601.854 191 10 Output Total 1630 990 100 Balance -1028.146 -799 -90 Weight 91.1 kg Intake: IV 70 120 10 0.9NS 70 120 10 Intake, IV Titration 531.854 71 Amount Heparin Sod,Pork in 0.45% 71 NaCl 25,000 unit In 0.45 % NaCl 1 250ml.bag @ 11. 023 UNITS/KG/HR 10 mls/hr IV .Q24H PATRICK Rx#: [id number] Nitroprusside 50 mg In 531.854 Dextrose 5% in Water 250 ml @ Titrate IV .Q0M PATRICK Rx#:[id number] Output: Urine 1630 990 100 Other: Voiding Method Indwelling Catheter Indwelling Catheter # Bowel Movements 1 - Exam General Appearance: Alert, cooperative, no acute distress, mildly overweight. Neck HEENT: Supple, no lymphadenopathy, no thyroid enlargement, no carotid bruits. Lungs: Decreased breath sound bilaterally with fine crackles in the bases with rhonchi to left base, no wheezes, no deformity. Chest Wall: Decrease expansion with deep inspiration no tenderness and no deformity was found on exam, no costochondral pain or discomfort. Heart: Regular rate and rhythm, S1, S2 normal, mild tachycardia, no murmur, rub or gallop. Back: Symmetric, no curvature, ROM normal, no CVA tenderness. Abdomen: Soft, non-tender, bowel sounds active all four quadrants, no masses, no organomegaly. Extremities: Trace edema with significant pain and discomfort in the right groin area with slight discoloration from the knee down with significant stasis dermatitis which patient claims she had Eosinophilic Dermatitis Pulses: 2+ and symmetric. Skin: Skin color, texture, tugor normal, no rashes or lesions. Neurologic: Alert oriented x3 cranial nerves II through XII intact, no motor deficit, no abnormal balance or gait. - Labs CBC & Chem 7: 07/05/19 02:39 07/05/19 02:39 Labs: Abnormal Lab Results - Last 24 Hours (Table) 07/04/19 07/04/19 07/04/19 Range/Units 08:15 08:15 08:15 WBC 15.2 H (3.8-10.6) k/uL RBC 3.15 L (3.80-5.40) m/uL Hgb 9.3 L (11.4-16.0) gm/dL Hct 27.7 L (34.0-46.0) % Neutrophils # 12.9 H (1.3-7.7) k/uL Lymphocytes # 0.9 L (1.0-4.8) k/uL Monocytes # 1.1 H (0-1.0) k/uL APTT (22.0-30.0) sec BUN 53 H (7-17) mg/dL Creatinine 1.39 H (0.52-1.04) mg/dL Glucose 169 H (74-99) mg/dL POC Glucose (mg/dL) (75-99) mg/dL Troponin I 0.749 H* (0.000-0.034) ng/mL Total Protein (6.3-8.2) g/dL Albumin (3.5-5.0) g/dL 07/04/19 07/04/19 07/04/19 Range/Units 13:04 17:08 18:51 WBC (3.8-10.6) k/uL RBC (3.80-5.40) m/uL Hgb (11.4-16.0) gm/dL Hct (34.0-46.0) % Neutrophils # (1.3-7.7) k/uL Lymphocytes # (1.0-4.8) k/uL Monocytes # (0-1.0) k/uL APTT 30.6 H (22.0-30.0) sec BUN (7-17) mg/dL Creatinine (0.52-1.04) mg/dL Glucose (74-99) mg/dL POC Glucose (mg/dL) 145 H 111 H (75-99) mg/dL Troponin I (0.000-0.034) ng/mL Total Protein (6.3-8.2) g/dL Albumin (3.5-5.0) g/dL 07/04/19 07/05/19 07/05/19 Range/Units 20:15 02:39 02:39 WBC 16.5 H (3.8-10.6) k/uL RBC 2.96 L (3.80-5.40) m/uL Hgb 8.7 L (11.4-16.0) gm/dL Hct 26.0 L (34.0-46.0) % Neutrophils # 12.1 H (1.3-7.7) k/uL Lymphocytes # (1.0-4.8) k/uL Monocytes # 1.5 H (0-1.0) k/uL APTT (22.0-30.0) sec BUN 54 H (7-17) mg/dL Creatinine 1.74 H (0.52-1.04) mg/dL Glucose 109 H (74-99) mg/dL POC Glucose (mg/dL) 104 H (75-99) mg/dL Troponin I (0.000-0.034) ng/mL Total Protein 5.7 L (6.3-8.2) g/dL Albumin 3.2 L (3.5-5.0) g/dL 07/05/19 07/05/19 Range/Units 02:39 06:37 WBC (3.8-10.6) k/uL RBC (3.80-5.40) m/uL Hgb (11.4-16.0) gm/dL Hct (34.0-46.0) % Neutrophils # (1.3-7.7) k/uL Lymphocytes # (1.0-4.8) k/uL Monocytes # (0-1.0) k/uL APTT 52.4 H (22.0-30.0) sec BUN (7-17) mg/dL Creatinine (0.52-1.04) mg/dL Glucose (74-99) mg/dL POC Glucose (mg/dL) 109 H (75-99) mg/dL Troponin I (0.000-0.034) ng/mL Total Protein (6.3-8.2) g/dL Albumin (3.5-5.0) g/dL Microbiology - Last 24 Hours (Table) 07/03/19 20:45 Blood Culture - Preliminary Blood No Growth after 24 hours 07/04/19 07:50 Urine Culture - Preliminary Urine,Catheterized Assessment and Plan Plan: 1 acute respiratory failure: Combination of cardiac and pulmonary, with her CTA more consistent with abnormality related to heart failure, echocardiogram impression moderate concentric left ventricular arthroplasty, EF between 55 and 60%, mild mitral regurgitation, chest x-ray showing continuing changes of mild heart failure. 2 possible acute congestive heart failure most likely systolic dysfunction with mild diastolic dysfunction. echocardiogram impression noted above, continue diuretics for now continue supportive care with oxygen and updraft. 3 reactive airway/COPD: Pulmonology consult appreciated. Steroids discontinued. BiPAP discontinued. O2 via nasal cannula. continue with O2 and updraft with her history of Eosinophilic Dermatitis abnormality watch for any Eosinophilic Pneumonia. 4 hypertension: Continue nipride, Cozaar, hydralazine, and Nitropaste. 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 Cardiology consult appreciated 7 chronic pain syndrome: tramadol. 8. Eosinophilic Dermatitis. May use bio oil from home twice a day. 9 acute kidney injury with stage III chronic kidney disease: BUN/creatinine are elevated gentle hydration treat underlying watch the blood pressure repeat BUN/creatinine creatinine. 10 hyperglycemia: Patient will be on Accu-Chek with sliding scales coverage there steroid protocol. 11 DVT prophylaxis:heparin 5000 units subcutaneous twice a day. 12 GI prophylaxis: pantoprazole 40 mg daily. CODE STATUS: Full code. Admit patient to inpatient status for more than 2 nights. Impression and plan of care have been directed as dictated by the signing physician. Jenna Kamendat nurse practitioner acting as scribe for signing physician.
--- NOTE | 2019-07-05 09:00 | P.CNOR ---
History of Present Illness - HPI Consult date: 07/05/19 History of present illness: This is a 79-year-old female who is admitted for CHF, COPD exacerbation and acute non-ST elevation NC. Orthopedics is consulted due to right hip pain. Patient states that she has been diagnosed with right hip bursitis in the past. Patient denies any injury or fall. Patient states that the pain in her right hip has improved since yesterday. Patient localizes her pain to the lateral aspect of the right hip. Patient denies any symptoms or complaints today. Patient denies any numbness, weakness, tingling, erythema, swelling or groin pain. Review of Systems See HPI. Past Medical History Past Medical History: GERD/Reflux, Hypertension Additional Past Medical History / Comment(s): Eosinophilic fasciitis of the right leg History of Any Multi-Drug Resistant Organisms: ESBL Year Discovered:: 06/28/18 MDRO Source:: Urine Past Surgical History: Bowel Resection, Cholecystectomy, Hernia Repair, Hysterectomy, Tonsillectomy Additional Past Surgical History / Comment(s): heel spurs, cataracts Past Anesthesia/Blood Transfusion Reactions: No Reported Reaction Past Psychological History: No Psychological Hx Reported Smoking Status: Former smoker Past Alcohol Use History: Occasional Additional Past Alcohol Use History / Comment(s): 2 drinks per week on average Past Drug Use History: None Reported - Past Family History Mother Family Medical History: Myocardial Infarction (NC) Medications and Allergies Home Medications Medication Instructions Recorded Confirmed Type Losartan/Hydrochlorothiazide 1 tab PO DAILY 05/01/14 07/03/19 History [Hyzaar 100-25 Tablet] Omeprazole [PriLOSEC] 20 mg PO DAILY 05/01/14 07/03/19 History L.acidoph,Paracasei, B.lactis 1 cap PO DAILY 06/28/18 07/03/19 History [Probiotic] predniSONE See Taper PO DAILY 06/28/18 07/03/19 History traMADol HCL [Ultram] 50 - 100 mg PO TID PRN 06/28/18 07/03/19 History Azithromycin [Zithromax Z-pack] See Taper PO DIRECTED 07/03/19 07/03/19 History Biotin 10,000 mcg PO DAILY 07/03/19 07/03/19 History Calcium Carbonate [Calcium] 600 mg PO DAILY 07/03/19 07/03/19 History Cholecalciferol [Vitamin D3 (25 5,000 unit PO DAILY 07/03/19 07/03/19 History Mcg = 1000 Iu)] Allergies Allergy/AdvReac Type Severity Reaction Status Date / Time levofloxacin [From Levaquin] Allergy Rash/Hives Verified 07/04/19 08:10 sulfamethoxazole Allergy Rash/Hives Verified 07/04/19 08:10 [From Bactrim] trimethoprim [From Bactrim] Allergy Rash/Hives Verified 07/04/19 08:10 adhesive tape AdvReac Rash/Hives Verified 07/03/19 20:49 ciprofloxacin [From Cipro] AdvReac Cough Verified 07/03/19 20:49 ciprofloxacin HCl AdvReac Cough Verified 07/03/19 20:49 [From Cipro] Physical Examination On exam there is mild tenderness to palpation over the lateral aspect of the right hip. There is no swelling, erythema or ecchymosis. Patient has full active and passive range of motion of the right hip and right lower extremity without pain or difficulty. Patient has mild swelling of bilateral lower extremities from dermatitis. Sensation is intact. Neurovascular status and circulatory status are intact. Results An x-ray of the right hip is negative for any fracture dislocation. Mild arthritic changes noted. - Labs Labs: Abnormal Lab Results - Last 24 Hours (Table) 07/04/19 07/04/19 07/04/19 Range/Units 08:15 13:04 17:08 WBC (3.8-10.6) k/uL RBC (3.80-5.40) m/uL Hgb (11.4-16.0) gm/dL Hct (34.0-46.0) % Neutrophils # (1.3-7.7) k/uL Monocytes # (0-1.0) k/uL APTT (22.0-30.0) sec BUN (7-17) mg/dL Creatinine (0.52-1.04) mg/dL Glucose (74-99) mg/dL POC Glucose (mg/dL) 145 H 111 H (75-99) mg/dL Troponin I 0.749 H* (0.000-0.034) ng/mL Total Protein (6.3-8.2) g/dL Albumin (3.5-5.0) g/dL 07/04/19 07/04/19 07/05/19 Range/Units 18:51 20:15 02:39 WBC 16.5 H (3.8-10.6) k/uL RBC 2.96 L (3.80-5.40) m/uL Hgb 8.7 L (11.4-16.0) gm/dL Hct 26.0 L (34.0-46.0) % Neutrophils # 12.1 H (1.3-7.7) k/uL Monocytes # 1.5 H (0-1.0) k/uL APTT 30.6 H (22.0-30.0) sec BUN (7-17) mg/dL Creatinine (0.52-1.04) mg/dL Glucose (74-99) mg/dL POC Glucose (mg/dL) 104 H (75-99) mg/dL Troponin I (0.000-0.034) ng/mL Total Protein (6.3-8.2) g/dL Albumin (3.5-5.0) g/dL 07/05/19 07/05/19 07/05/19 Range/Units 02:39 02:39 06:37 WBC (3.8-10.6) k/uL RBC (3.80-5.40) m/uL Hgb (11.4-16.0) gm/dL Hct (34.0-46.0) % Neutrophils # (1.3-7.7) k/uL Monocytes # (0-1.0) k/uL APTT 52.4 H (22.0-30.0) sec BUN 54 H (7-17) mg/dL Creatinine 1.74 H (0.52-1.04) mg/dL Glucose 109 H (74-99) mg/dL POC Glucose (mg/dL) 109 H (75-99) mg/dL Troponin I (0.000-0.034) ng/mL Total Protein 5.7 L (6.3-8.2) g/dL Albumin 3.2 L (3.5-5.0) g/dL Microbiology - Last 24 Hours (Table) 07/03/19 20:45 Blood Culture - Preliminary Blood No Growth after 24 hours 07/04/19 07:50 Urine Culture - Preliminary Urine,Catheterized H & H 07/03/19 07/04/19 07/05/19 Range/Units 20:45 08:15 02:39 Hgb 9.7 L 9.3 L 8.7 L (11.4-16.0) gm/dL Hct 31.4 L 27.7 L 26.0 L (34.0-46.0) % Coagulation 07/03/19 07/04/19 Range/Units 20:45 12:23 INR 1.0 1.0 (<1.2) Result Diagrams: 07/05/19 02:39 07/05/19 02:39 Assessment and Plan Assessment: Trochanteric bursitis right hip. (1) Greater trochanteric bursitis of right hip Current Visit: Yes Status: Acute Code(s): M70.61 - TROCHANTERIC BURSITIS, RIGHT HIP SNOMED Code(s): 9324300 (2) Right hip pain Current Visit: Yes Status: Acute Code(s): M25.551 - PAIN IN RIGHT HIP SNOMED Code(s): 54178854 Plan: 1. It was discussed that cortisone injections could be performed for trochanteric bursitis, but we will hold off on this until patient is out of the hospital. Patient does state that her symptoms are improving. 2. Patient may be weightbearing as tolerated to the right lower extremity. 3. No surgical intervention planned. Patient may follow up as an outpatient on as-needed basis.
[2019-07-05] MEDS: DILTIAZEM ORAL 60 MG TAB PO SCH ×3 (09:10→20:55)
[2019-07-05] MEDS: CHOLECALCIFEROL 1,000 UNIT TAB PO SCH (09:10)
[2019-07-05] MEDS: CALCIUM CARBONATE 500 MG CHEWABLE PO SCH (09:10)
[2019-07-05] MEDS: hydrALAZINE HCL 50 MG TAB PO SCH ×3 (09:11→22:25)
[2019-07-05] MEDS: FUROSEMIDE 10 MG/ML 4 ML VIAL IV SCH ×2 (09:11→20:55)
[2019-07-05] MEDS: LOSARTAN 50 MG TAB PO SCH (09:11)
--- NOTE | 2019-07-05 10:02 | P.PN ---
Subjective Progress Note Date: 07/05/19 Principal diagnosis: Hypertensive urgency/emergency, congestive heart failure The patient is seen today 07/05/2019 in follow-up in the intensive care unit. She is currently sitting up in a chair at the bedside. Awake and alert in no acute distress. Currently maintaining O2 saturations in the 90s on room air. Temperature 99.3. Current blood pressure 146/54 with a mean of 84. Heart rate 108. She is currently on 0.9 normal saline at KVO. Heparin per weight-based protocol. Off the night prior to now. Currently off BiPAP. She is continued on Lasix 40 mg IV push every 12 hours. Currently in a negative balance. X-ray continues to show mild fluid volume overload. Blood and urine cultures pending. White count 16.45. Hemoglobin 8.7. Creatinine 1.74. ProBNP 30,200. Echocardiogram did reveal preserved left ventricular systolic function. Objective - Vital Signs Vital signs: Vital Signs Temp 99.3 F 07/05/19 08:00 Pulse 108 H 07/05/19 09:00 Resp 31 H 07/05/19 09:00 BP 146/54 07/05/19 09:00 Pulse Ox 93 L 07/05/19 09:00 Intake & Output 07/04/19 07/05/19 07/05/19 18:59 06:59 18:59 Intake Total 601.854 191 30 Output Total 1630 990 225 Balance -1028.146 -799 -195 Weight 91.1 kg Intake: IV 70 120 30 0.9NS 70 120 30 Intake, IV Titration 531.854 71 Amount Heparin Sod,Pork in 0.45% 71 NaCl 25,000 unit In 0.45 % NaCl 1 250ml.bag @ 11. 023 UNITS/KG/HR 10 mls/hr IV .Q24H PATRICK Rx#: [id number] Nitroprusside 50 mg In 531.854 Dextrose 5% in Water 250 ml @ Titrate IV .Q0M PATRICK Rx#:[id number] Output: Urine 1630 990 225 Other: Voiding Method Indwelling Catheter Indwelling Catheter # Bowel Movements 1 - Exam GENERAL EXAM: Alert, active, comfortable in no apparent distress. Oxygen at 2 L/m per nasal cannula. HEAD: Normocephalic. EYES: Normal reaction of pupils, equal size. NOSE: Clear with pink turbinates. THROAT: No erythema or exudates. NECK: No masses, no JVD. CHEST: No chest wall deformity. LUNGS: Equal air entry with crackles in the bilateral posterior bases. CVS: S1 and S2 normal with no audible murmur, regular rhythm. ABDOMEN: No hepatosplenomegaly, normal bowel sounds, no guarding or rigidity. SPINE: No scoliosis or deformity SKIN: No rashes CENTRAL NERVOUS SYSTEM: No focal deficits, tone is normal in all 4 extremities. EXTREMITIES: There is no peripheral edema. No clubbing, no cyanosis. Peripheral pulses are intact. - Labs CBC & Chem 7: 07/05/19 02:39 07/05/19 02:39 Labs: Abnormal Lab Results - Last 24 Hours (Table) 07/04/19 07/04/19 07/04/19 Range/Units 08:15 13:04 17:08 WBC (3.8-10.6) k/uL RBC (3.80-5.40) m/uL Hgb (11.4-16.0) gm/dL Hct (34.0-46.0) % Neutrophils # (1.3-7.7) k/uL Monocytes # (0-1.0) k/uL APTT (22.0-30.0) sec BUN (7-17) mg/dL Creatinine (0.52-1.04) mg/dL Glucose (74-99) mg/dL POC Glucose (mg/dL) 145 H 111 H (75-99) mg/dL Troponin I 0.749 H* (0.000-0.034) ng/mL Total Protein (6.3-8.2) g/dL Albumin (3.5-5.0) g/dL 07/04/19 07/04/19 07/05/19 Range/Units 18:51 20:15 02:39 WBC 16.5 H (3.8-10.6) k/uL RBC 2.96 L (3.80-5.40) m/uL Hgb 8.7 L (11.4-16.0) gm/dL Hct 26.0 L (34.0-46.0) % Neutrophils # 12.1 H (1.3-7.7) k/uL Monocytes # 1.5 H (0-1.0) k/uL APTT 30.6 H (22.0-30.0) sec BUN (7-17) mg/dL Creatinine (0.52-1.04) mg/dL Glucose (74-99) mg/dL POC Glucose (mg/dL) 104 H (75-99) mg/dL Troponin I (0.000-0.034) ng/mL Total Protein (6.3-8.2) g/dL Albumin (3.5-5.0) g/dL 07/05/19 07/05/19 07/05/19 Range/Units 02:39 02:39 06:37 WBC (3.8-10.6) k/uL RBC (3.80-5.40) m/uL Hgb (11.4-16.0) gm/dL Hct (34.0-46.0) % Neutrophils # (1.3-7.7) k/uL Monocytes # (0-1.0) k/uL APTT 52.4 H (22.0-30.0) sec BUN 54 H (7-17) mg/dL Creatinine 1.74 H (0.52-1.04) mg/dL Glucose 109 H (74-99) mg/dL POC Glucose (mg/dL) 109 H (75-99) mg/dL Troponin I (0.000-0.034) ng/mL Total Protein 5.7 L (6.3-8.2) g/dL Albumin 3.2 L (3.5-5.0) g/dL Microbiology - Last 24 Hours (Table) 07/03/19 20:45 Blood Culture - Preliminary Blood No Growth after 24 hours 07/04/19 07:50 Urine Culture - Preliminary Urine,Catheterized Assessment and Plan Assessment: Impression: #1 Acute hypoxic respiratory failure secondary to acute exacerbation of diastolic congestive heart failure and hypertensive emergency. She'll he r equired BiPAP support. Currently on 2 L nasal cannula. Echocardiogram revealed preserved left ventricular systolic function with ejection fraction greater than 50%. #2 Hypertensive emergency requiring high pride at 2.5 mcg/kg/m. Improved. #3 History of hypertension. #4 Acute non-ST segment elevation myocardial infarction. #5 Gastroesophageal reflux disease. #6 Previous bowel resection. 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 #8 Previous tobacco dependence with suspected chronic obstructive pulmonary disease. Plan: The patient was seen and evaluated by Dr. [place]. She is currently stable from the pulmonary standpoint. Cardiology is on the case and plans for cardiac catheterization in the next day or two. We'll continue to follow make further recommendations based on her clinical status. I, the cosigning physician, performed a history & physical examination of the patient. Lungs sounds with basilar crackles. Maintaining good O2 saturations in the 90s on room air. I discussed the assessment and plan of care with my nurse practitioner, Sydney Mckee. I attest to the above note as dictated by her.
[2019-07-05] MEDS: HEPARIN SOD,PORK IN 0.45% NACL 25,000 UNIT in 0.45% NACL 1 250ML.BAG IV SCH (10:27)
[2019-07-05 11:41] LABS: Glucose,Whole Blood 146 mg/dL (75-99)
[2019-07-05] MEDS: traMADol 50 MG TAB PO PRN (12:24)
[2019-07-05] MEDS: [UNRECOGNIZED DRUG - OTHER] TOPICAL SCH ×2 (14:41→20:55)
[2019-07-05 17:00] LABS: Glucose,Whole Blood 143 mg/dL (75-99)
[2019-07-05 20:49] LABS: Glucose,Whole Blood 124 mg/dL (75-99)
[2019-07-06] MEDS: NITROGLYCERIN OINT 1 INCH/GM PACKET TOPICAL SCH ×3 (01:00→18:14)
[2019-07-06 05:03] LABS: Basophils # (A) 0.1 k/uL (0-0.2); Basophils % (A) 0 %; Eosinophils # (A) 0.6 k/uL (0-0.7); Eosinophils % (A) 4 %; HCT 25.8 % (34.0-46.0); HGB 8.1 gm/dL (11.4-16.0); Lymphocytes # (A) 2.2 k/uL (1.0-4.8); Lymphocytes % (A) 14 %; MCH 28.1 pg (25.0-35.0); MCHC 31.5 g/dL (31.0-37.0); MCV 89.3 fL (80.0-100.0); Mean Platelet Volume 7.9; Monocytes # (A) 1.2 k/uL (0-1.0); Monocytes % (A) 8 %; Neutrophils # (A) 11.1 k/uL (1.3-7.7); Neutrophils % (A) 72 %; Platelet Count 337 k/uL (150-450); RBC 2.89 m/uL (3.80-5.40); RDW 13.3 % (11.5-15.5); WBC 15.4 k/uL (3.8-10.6)
[2019-07-06 05:34] LABS: Calcium 8.5 mg/dL (8.4-10.2); Potassium 4.2 mmol/L (3.5-5.1)
[2019-07-06] MEDS: HEPARIN SOD,PORK IN 0.45% NACL 25,000 UNIT in 0.45% NACL 1 250ML.BAG IV SCH (05:36)
[2019-07-06] MEDS: PANTOPRAZOLE 40 MG TABLET PO SCH (07:03)
[2019-07-06] MEDS: INSULIN ASPART (NovoLOG) 100 UNIT/ML VIAL SQ SCH ×4 (07:03→20:30)
[2019-07-06 07:04] LABS: Glucose,Whole Blood 119 mg/dL (75-99)
[2019-07-06] MEDS: IPRATROPIUM-ALBUTEROL 3 ML NEB INHALATION SCH ×4 (07:56→19:38)
--- NOTE | 2019-07-06 08:32 | P.PN ---
Subjective Progress Note Date: 07/06/19 Principal diagnosis: Acute coronary syndrome This is a pleasant 79-year-old female patient with a past medical history significant for hypertension as well as dyslipidemia was admitted to the hospital with progressive dyspnea for the last few days area the patient was found to be severely hypertensive as well as. She was diagnosed was congestive heart failure exacerbation as well as hypertensive emergency. Also she was ruled in for acute coronary syndrome with mildly abnormal troponin. The EKG did not show any significant ST or T-wave abnormalities but it did show sinus tachycardia. The patient was started on Lasix IV. The echo revealed normal LV function with mild MR and mild TR. On follow-up with the patient today, 07/06/2019, the patient stated that the shortness of breath is better. The chest x-ray continues to show evidence of mild congestive heart failure. She is on Lasix IV at 40 mg twice a day. The creatinine is worse today and is 2.2. I'm going to decrease the dose of Lasix to 40 mg IV daily, continue monitor the kidney function and electrolytes, and continue following up with the patient. The blood pressure and heart rate both have been under good control. The patient need to have a heart catheterization in the next 24-48 hours once she is better from the heart failure standpoint of view and once her kidney function improved. Objective - Vital Signs Vital signs: Vital Signs Temp 98.3 F 07/06/19 08:00 Pulse 94 07/06/19 08:08 Resp 31 H 07/06/19 08:00 BP 127/92 07/06/19 08:00 Pulse Ox 98 07/06/19 08:00 Intake & Output 07/05/19 07/06/19 07/06/19 18:59 06:59 18:59 Intake Total 1099.000 363.660 270 Output Total 655 490 80 Balance 444.000 -126.340 190 Weight 92.1 kg Intake: IV 120 120 20 0.9NS 120 120 20 Intake, IV Titration 179.000 243.660 Amount Heparin Sod,Pork in 0.45% 179.000 243.660 NaCl 25,000 unit In 0.45 % NaCl 1 250ml.bag @ 11. 023 UNITS/KG/HR 10 mls/hr IV .Q24H [facility] Rx#: [id number] Oral 250 Tube Feeding 800 Output: Urine 655 490 80 Other: Voiding Method Indwelling Catheter Indwelling Catheter # Bowel Movements 1 - Constitutional General appearance: Present: no acute distress - Respiratory Respiratory: bilateral: wheezing - Cardiovascular Rhythm: regular Heart sounds: normal: S1, S2 - Labs CBC & Chem 7: 07/06/19 04:43 07/06/19 04:43 Labs: Abnormal Lab Results - Last 24 Hours (Table) 07/05/19 07/05/19 07/05/19 Range/Units 02:39 11:40 16:58 WBC (3.8-10.6) k/uL RBC (3.80-5.40) m/uL Hgb (11.4-16.0) gm/dL Hct (34.0-46.0) % Neutrophils # (1.3-7.7) k/uL Monocytes # (0-1.0) k/uL APTT (22.0-30.0) sec Sodium (137-145) mmol/L BUN (7-17) mg/dL Creatinine (0.52-1.04) mg/dL Glucose (74-99) mg/dL POC Glucose (mg/dL) 146 H 143 H (75-99) mg/dL Procalcitonin 1.35 H (0.02-0.09) ng/mL 07/05/19 07/06/19 07/06/19 Range/Units 20:48 04:43 04:43 WBC 15.4 H (3.8-10.6) k/uL RBC 2.89 L (3.80-5.40) m/uL Hgb 8.1 L (11.4-16.0) gm/dL Hct 25.8 L (34.0-46.0) % Neutrophils # 11.1 H (1.3-7.7) k/uL Monocytes # 1.2 H (0-1.0) k/uL APTT (22.0-30.0) sec Sodium 136 L (137-145) mmol/L BUN 60 H (7-17) mg/dL Creatinine 2.20 H (0.52-1.04) mg/dL Glucose 113 H (74-99) mg/dL POC Glucose (mg/dL) 124 H (75-99) mg/dL Procalcitonin (0.02-0.09) ng/mL 07/06/19 07/06/19 Range/Units 04:43 07:02 WBC (3.8-10.6) k/uL RBC (3.80-5.40) m/uL Hgb (11.4-16.0) gm/dL Hct (34.0-46.0) % Neutrophils # (1.3-7.7) k/uL Monocytes # (0-1.0) k/uL APTT 46.8 H (22.0-30.0) sec Sodium (137-145) mmol/L BUN (7-17) mg/dL Creatinine (0.52-1.04) mg/dL Glucose (74-99) mg/dL POC Glucose (mg/dL) 119 H (75-99) mg/dL Procalcitonin (0.02-0.09) ng/mL Microbiology - Last 24 Hours (Table) 07/03/19 20:45 Blood Culture - Preliminary Blood No Growth after 48 hours 07/04/19 07:50 Urine Culture - Final Urine,Catheterized Assessment and Plan Assessment: Assessment #1 congestive heart failure exacerbation secondary to diastolic dysfunction #2 possible component of COPD exacerbation #3 hypertensive emergency #4 acute non-ST elevation IA Plan #1 continue the current medical regimen #2 decrease the dose of Lasix to 40 mg IV daily in view of the worsening kidney function #3 add aspirin to the current medical regimen #4 continue monitor the kidney function and electrolytes #5 coronary angiogram to be performed in the next 24-48 hours once she is more stable from the heart failure standpoint of view and kidney function improved.
--- NOTE | 2019-07-06 08:44 | P.PN ---
Subjective Progress Note Date: 07/06/19 79-year-old female with multiple medical problem presented to [facility] complaining of significant shortness of breath for the last a few days. Admission with significant increased weight with slight chest tightness and pressure nausea low-grade temperature with some chills at the time. Patient denies any traveling history recently he was seen by her primary care physician Dr. Donahue and prescribed azithromycin apparently took the medication which did not make any different. Patient become sicker and sicker finally not been able to lay down flat not been able to ambulate walk and cough become more foamy and productive. Ended up coming to [facility] department at [facility] where was seen and evaluated she had significant hypoxia and very tachypnea and tachycardia ended up going for CTA did not show any PE but showed significant finding consistent with the fluid overload and early pulmonary edema. Lasix was giving patient was placed on BiPAP at the time her troponin came back mildly elevated as well was admitted to the ICU on IV Rocephin and Zithromax she was on IV nitro initially was switched to night pride 2.5 g and consult pulmonary and cardiology. 07/05/19: Patient is sitting up in in chair stating that her breathing is improved and she is feeling better. Patient denies any chest pain or shortness of breath. She does not lay flat, patient has not been any activity that has caused shortness of breath at this time. She has a positive cough however no sputum. Patient is afebrile vital signs stable, 93% on room air. WBC 16.5, hemoglobin 8.7, P1 has increased to 54, creatinine 1.74. Patient was seen by orthopedics who does not feel that the patient needs any injections at this time for right hip bursitis, this can be done in outpatient setting. Patient may be weightbearing as tolerated. No surgical intervention at this time. 07/06/2019: Patient is sitting up in a chair in no acute distress, patient states that she is breathing better and starting to feel better. Patient denies any chest pain or shortness of breath. Patient remained afebrile blood pressure to 127/92, heart rate 84, pulse ox 90% on room air. WBC 15.4, hemoglobin 8.1, platelet 337, potassium 4.2, BUN is elevated at 60, creatinine 2.20. This is increased compared to yesterday. Chest x-ray continues to show evidence of mild congestive heart failure. Patient continues to be on Lasix at 40 mg twice a day. Heart catheterization is planned for the next 24-48 hours once her heart failure has improved and kidney function is improved. Review of Systems CONSTITUTIONAL: Well-developed, no acute distress, Mildly overweight EYES: No icterus sclerae, no conjunctivitis. EARS, NOSE, MOUTH, THROAT, and FACE: No sore throat, lymphadenopathy, carotid bruits or deformity. RESPIRATORY: No shortness of breath reports cough reports wheezes no significant dyspnea. CARDIOVASCULAR: No CP, Palpitation, PND, Orthopnea, or angina. GASTROINTESTINAL: No Abd pain, Nausea or vomiting, no Diarrhea or constipation, No GI Bleed, no distention or masses. GENITOURINARY: Negative for Hematuria or UTI, no kidney stones. INTEGUMENT/BREAST: Negative for any muscular injury with mild osteoarthritis.. HEMATOLOGIC/LYMPHATIC: Negative for bleed or purpura. MUSCULOSKELTAL: Significant pain and discomfort in the right groin and leg area including the hip area itself with no recent injury no bruises. NEURLOGICAL: No LOC, Sz or syncope, blurred vision dizziness or abnormality.. BEHAVIORAL/PSYCH: Negative. ENDOCRINE: Negative. Objective - Vital Signs Vital signs: Vital Signs Temp 98.3 F 07/06/19 08:00 Pulse 94 07/06/19 08:08 Resp 31 H 07/06/19 08:00 BP 127/92 07/06/19 08:00 Pulse Ox 98 07/06/19 08:00 Intake & Output 07/05/19 07/06/19 07/06/19 18:59 06:59 18:59 Intake Total 1099.000 363.660 270 Output Total 655 490 80 Balance 444.000 -126.340 190 Weight 92.1 kg Intake: IV 120 120 20 0.9NS 120 120 20 Intake, IV Titration 179.000 243.660 Amount Heparin Sod,Pork in 0.45% 179.000 243.660 NaCl 25,000 unit In 0.45 % NaCl 1 250ml.bag @ 11. 023 UNITS/KG/HR 10 mls/hr IV .Q24H [facility] Rx#: [id number] Oral 250 Tube Feeding 800 Output: Urine 655 490 80 Other: Voiding Method Indwelling Catheter Indwelling Catheter # Bowel Movements 1 - Exam General Appearance: Alert, cooperative, no acute distress, mildly overweight. Neck HEENT: Supple, no lymphadenopathy, no thyroid enlargement, no carotid bruits. Lungs: Decreased breath sound bilaterally with fine crackles in the bases with rhonchi to left base, no wheezes, no deformity. Chest Wall: Decrease expansion with deep inspiration no tenderness and no deformity was found on exam, no costochondral pain or discomfort. Heart: Regular rate and rhythm, S1, S2 normal, mild tachycardia, no murmur, rub or gallop. Back: Symmetric, no curvature, ROM normal, no CVA tenderness. Abdomen: Soft, non-tender, bowel sounds active all four quadrants, no masses, no organomegaly. Extremities: Trace edema with significant pain and discomfort in the right groin area with slight discoloration from the knee down discoloration has improved since bioavailable is being utilized Pulses: 2+ and symmetric. Skin: Skin color, texture, tugor normal, no rashes or lesions. Neurologic: Alert oriented x3 cranial nerves II through XII intact, no motor deficit, no abnormal balance or gait. - Labs CBC & Chem 7: 07/06/19 04:43 07/06/19 04:43 Labs: Abnormal Lab Results - Last 24 Hours (Table) 07/05/19 07/05/19 07/05/19 Range/Units 02:39 11:40 16:58 WBC (3.8-10.6) k/uL RBC (3.80-5.40) m/uL Hgb (11.4-16.0) gm/dL Hct (34.0-46.0) % Neutrophils # (1.3-7.7) k/uL Monocytes # (0-1.0) k/uL APTT (22.0-30.0) sec Sodium (137-145) mmol/L BUN (7-17) mg/dL Creatinine (0.52-1.04) mg/dL Glucose (74-99) mg/dL POC Glucose (mg/dL) 146 H 143 H (75-99) mg/dL Procalcitonin 1.35 H (0.02-0.09) ng/mL 07/05/19 07/06/19 07/06/19 Range/Units 20:48 04:43 04:43 WBC 15.4 H (3.8-10.6) k/uL RBC 2.89 L (3.80-5.40) m/uL Hgb 8.1 L (11.4-16.0) gm/dL Hct 25.8 L (34.0-46.0) % Neutrophils # 11.1 H (1.3-7.7) k/uL Monocytes # 1.2 H (0-1.0) k/uL APTT (22.0-30.0) sec Sodium 136 L (137-145) mmol/L BUN 60 H (7-17) mg/dL Creatinine 2.20 H (0.52-1.04) mg/dL Glucose 113 H (74-99) mg/dL POC Glucose (mg/dL) 124 H (75-99) mg/dL Procalcitonin (0.02-0.09) ng/mL 07/06/19 07/06/19 Range/Units 04:43 07:02 WBC (3.8-10.6) k/uL RBC (3.80-5.40) m/uL Hgb (11.4-16.0) gm/dL Hct (34.0-46.0) % Neutrophils # (1.3-7.7) k/uL Monocytes # (0-1.0) k/uL APTT 46.8 H (22.0-30.0) sec Sodium (137-145) mmol/L BUN (7-17) mg/dL Creatinine (0.52-1.04) mg/dL Glucose (74-99) mg/dL POC Glucose (mg/dL) 119 H (75-99) mg/dL Procalcitonin (0.02-0.09) ng/mL Microbiology - Last 24 Hours (Table) 07/03/19 20:45 Blood Culture - Preliminary Blood No Growth after 48 hours 07/04/19 07:50 Urine Culture - Final Urine,Catheterized Assessment and Plan Plan: 1 acute respiratory failure: Combination of cardiac and pulmonary, with her CTA more consistent with abnormality related to heart failure, echocardiogram impression moderate concentric left ventricular arthroplasty, EF between 55 and 60%, mild mitral regurgitation, chest x-ray showing continuing changes of mild heart failure. 2 possible acute congestive heart failure most likely systolic dysfunction with mild diastolic dysfunction. echocardiogram impression noted above, continue diuretics for now continue supportive care with oxygen and updraft. 3 reactive airway/COPD: Pulmonology consult appreciated. Steroids discontinued. BiPAP discontinued. O2 via nasal cannula. continue with O2 and updraft with her history of Eosinophilic Dermatitis abnormality watch for any Eosinophilic Pneumonia. 4. acute kidney injury with stage III chronic kidney disease: Continue with Cozaar potassium is 4.2, consult nephrology. 5 hypertension: Continue nipride, Cozaar, hydralazine, and Nitropaste. 6 elevated troponin with possible non-ST CT: Echocardiogram - see impression above, might need to go to the laboratory chemist when her breathing and oxygen level are better. Cardiology consult appreciated 7 chronic pain syndrome: tramadol. 8. Eosinophilic Dermatitis. May use bio oil from home twice a day. 9 severe right hip pain not acute etiology could be bursitis but rule out the possibility of avascular necrosis: Hip x-ray mild osteoarthritis, osteopenia 10 hyperglycemia: Patient will be on Accu-Chek with sliding scales coverage there steroid protocol. 11 DVT prophylaxis:heparin 5000 units subcutaneous twice a day. 12 GI prophylaxis: pantoprazole 40 mg daily. CODE STATUS: Full code. Admit patient to inpatient status for more than 2 nights. Impression and plan of care have been directed as dictated by the signing physician. Jenna Salgado nurse practitioner acting as scribe for signing physician.
--- NOTE | 2019-07-06 09:23 | PN ---
PROGRESS NOTE DATE OF SERVICE: July 06, 2019 A 79-year-old female admitted to the hospital on July 03. She came with acute hypoxemic respiratory failure secondary to diastolic congestive heart failure. She also had hypertensive emergency. Initially required BiPAP support. Currently now just on room air during the daytime, 2 L at nighttime. She is still on heparin via weight based protocol and a saline IV at KVO. The BiPAP can be discontinued. The patient is otherwise doing reasonably well. She does have a history of hypertension, acute non ST- segment elevation myocardial infarction, gastroesophageal reflux disease, bowel resection, previous history of extended spectrum beta lactamase producing infections and previous tobacco dependence with suspected COPD. She is doing very well and in my opinion could be transferred out to the cardiac floor on . She had uneventful night last night. Not requiring a BiPAP. She denies any shortness of breath, chest pain, chest discomfort, palpitation, cough, wheezing, phlegm production, nausea, vomiting, diarrhea, or any genitourinary complaints. PHYSICAL EXAMINATION: VITAL SIGNS: Current vital signs are reviewed. Temperature is 98.3. Heart rate 73, respiratory rate 20, blood pressure 129/52, mean 77, saturation is 93%. GENERAL: She appears in no acute distress. HEENT examination is grossly unremarkable. Mucous membranes are moist. No oral lesions. NECK: Supple. Full range of motion. No adenopathy or thyromegaly. Neck veins are flat. CARDIOVASCULAR examination reveals a regular rhythm and rate. Heart rate mid 70s. S1, S2 normal. Soft, systolic murmur is noted. LUNGS: A few scattered mild rhonchi and crackles. Breath sounds are much improved. No wheezes. Breath sounds are equal bilaterally. ABDOMEN: Soft. Bowel sounds are heard. EXTREMITIES are intact. No cyanosis, clubbing, or edema. SKIN: Without rash. NEUROLOGIC: Examination is brief but nonfocal. White count 15.4, hemoglobin 8.1, hematocrit 25.8, platelet count 337,000, sodium 136, potassium 4.2 chloride 104, CO2 22, anion gap is 10, BUN and creatinine were 60 and 2.20. Microbiologic studies including urine and blood sampling are negative. No recent chest x-ray to review. Chest x-ray from July 05 showed changes of mild heart failure with mild interstitial edema. Medications are reviewed. They are all appropriate. She did require Nipride for short period of time for blood pressure control. ASSESSMENT: 1. Hypertensive emergency, characterized by acute pulmonary edema, improved. 2. Hypoxemic respiratory failure secondary to acute exacerbation of diastolic congestive heart failure. 3. Preserved left ventricular function. 4. History of hypertension. 5. Acute non ST-segment elevation myocardial infarction. 6. Gastroesophageal reflux disease. 7. Previous bowel resection. 8. Previous history of extended spectrum beta lactamase producing infections. 9. Suspect chronic obstructive pulmonary disease from previous tobacco dependence. 10.Chronic kidney disease. PLAN: The patient is doing well. BiPAP could be discontinued. She remains on IV heparin. Mostly on room air. 2 L at nighttime. The patient could be transferred out to the cardiac floor. We will continue to follow. MMODL / IJN: [id number] /
[2019-07-06] MEDS: ASPIRIN 325 MG TAB PO SCH (09:39)
[2019-07-06] MEDS: CHOLECALCIFEROL 1,000 UNIT TAB PO SCH (09:39)
[2019-07-06] MEDS: hydrALAZINE HCL 50 MG TAB PO SCH ×3 (09:39→20:47)
[2019-07-06] MEDS: CALCIUM CARBONATE 500 MG CHEWABLE PO SCH (09:39)
[2019-07-06] MEDS: FUROSEMIDE 10 MG/ML 4 ML VIAL IV SCH (09:40)
[2019-07-06] MEDS: LOSARTAN 50 MG TAB PO SCH (09:40)
[2019-07-06] MEDS: DILTIAZEM ORAL 60 MG TAB PO SCH ×3 (09:41→20:47)
[2019-07-06] MEDS: [UNRECOGNIZED DRUG - OTHER] TOPICAL SCH ×2 (09:43→20:50)
[2019-07-06] MEDS ORDERED: AZITHROMYCIN 500 MG in SODIUM CHLORIDE 0.9% 250 ML IVPB SCH (10:00)
[2019-07-06] MEDS: HYDROmorphone 0.5 MG/0.5 ML SYRINGE IVP PRN ×2 (10:25→13:13)
--- NOTE | 2019-07-06 11:23 | P.NPCON ---
History of Present Illness - Reason for Consult acute renal failure - History of Present Illness Reason for consultation: Acute kidney injury History of present illness: Patient is a 79-year-old female seen in renal consultation for acute kidney injury. Creatinine was 1.46 on admission and is up to 2.2 today. Patient presented to the hospital with dyspnea. She was noted to be in fluid overload and was started on IV Lasix. She was maintained on IV Lasix 40 mg twice daily which was decreased to once daily today. On admission she also underwent CT angiogram which revealed no evidence of pulmonary embolism. No evidence of hypotension. In fact her blood pressure was high on admission and is well controlled now. She admits to good urine output. No hematuria or dysuria. Denies regular use of nonsteroidals. Denies any family history of renal disease. Currently has a Renteria catheter. She is nonoliguric. No history of diabetes. Currently maintained on heparin drip. She is being considered for cardiac catheterization. Vital signs are stable. General: The patient appeared well nourished and normally developed. HEENT: Head exam is unremarkable. Neck is without jugular venous distension. LUNGS: Breath sounds decreased. HEART: Rate and Rhythm are regular. First and second heart sounds normal. No murmurs, rubs or gallops. ABDOMEN: Abdominal exam reveals normal bowel sounds. Non-tender and non- distended. No evidence of peritonitis. EXTREMITITES: Trace edema. Chronic changes noted. Past Medical History Past Medical History: GERD/Reflux, Hypertension Additional Past Medical History / Comment(s): Eosinophilic fasciitis of the right leg History of Any Multi-Drug Resistant Organisms: ESBL Date of last positivie culture/infection: 06/28/18 MDRO Source:: Urine Past Surgical History: Bowel Resection, Cholecystectomy, Hernia Repair, Hysterectomy, Tonsillectomy Additional Past Surgical History / Comment(s): heel spurs, cataracts Past Anesthesia/Blood Transfusion Reactions: No Reported Reaction Past Psychological History: No Psychological Hx Reported Smoking Status: Former smoker Past Alcohol Use History: Occasional Additional Past Alcohol Use History / Comment(s): 2 drinks per week on average Past Drug Use History: None Reported - Past Family History Mother Family Medical History: Myocardial Infarction ([place]) Medications and Allergies Home Medications Medication Instructions Recorded Confirmed Type Losartan/Hydrochlorothiazide 1 tab PO DAILY 05/01/14 07/03/19 History [Hyzaar 100-25 Tablet] Omeprazole [PriLOSEC] 20 mg PO DAILY 05/01/14 07/03/19 History L.acidoph,Paracasei, B.lactis 1 cap PO DAILY 06/28/18 07/03/19 History [Probiotic] predniSONE See Taper PO DAILY 06/28/18 07/03/19 History traMADol HCL [Ultram] 50 - 100 mg PO TID PRN 06/28/18 07/03/19 History Azithromycin [Zithromax Z-pack] See Taper PO DIRECTED 07/03/19 07/03/19 History Biotin 10,000 mcg PO DAILY 07/03/19 07/03/19 History Calcium Carbonate [Calcium] 600 mg PO DAILY 07/03/19 07/03/19 History Cholecalciferol [Vitamin D3 (25 5,000 unit PO DAILY 07/03/19 07/03/19 History Mcg = 1000 Iu)] Allergies Allergy/AdvReac Type Severity Reaction Status Date / Time levofloxacin [From Levaquin] Allergy Rash/Hives Verified 07/04/19 08:10 sulfamethoxazole Allergy Rash/Hives Verified 07/04/19 08:10 [From Bactrim] trimethoprim [From Bactrim] Allergy Rash/Hives Verified 07/04/19 08:10 adhesive tape AdvReac Rash/Hives Verified 07/03/19 20:49 ciprofloxacin [From Cipro] AdvReac Cough Verified 07/03/19 20:49 ciprofloxacin HCl AdvReac Cough Verified 07/03/19 20:49 [From Cipro] Physical Exam Vitals: Vital Signs Temp Pulse Resp BP Pulse Ox 07/06/19 11:10 80 07/06/19 10:00 85 25 H 127/92 96 07/06/19 09:00 84 23 127/92 90 L 07/06/19 08:08 94 07/06/19 08:00 98.3 F 85 31 H 127/92 98 07/06/19 07:56 90 07/06/19 07:00 73 20 129/52 93 L 07/06/19 06:00 76 20 136/52 95 07/06/19 05:00 85 22 120/48 96 07/06/19 04:00 98.3 F 75 19 131/41 96 07/06/19 03:00 77 20 136/45 96 07/06/19 02:00 90 20 125/45 95 07/06/19 01:00 87 22 131/44 95 07/06/19 00:00 98.5 F 98 16 118/41 96 07/05/19 23:00 91 24 123/64 90 L 07/05/19 22:00 93 23 123/64 91 L 07/05/19 21:00 95 20 123/43 91 L 07/05/19 20:35 98 07/05/19 20:21 98 07/05/19 20:00 98.3 F 98 25 H 141/54 92 L 07/05/19 19:00 98 28 H 114/45 92 L 07/05/19 18:00 96 13 138/54 93 L 07/05/19 17:00 96 31 H 123/58 91 L 07/05/19 16:00 97.5 F L 97 28 H 125/50 91 L 07/05/19 15:44 90 07/05/19 15:35 87 07/05/19 15:00 89 23 108/50 93 L 07/05/19 14:00 101 H 33 H 118/45 93 L 07/05/19 13:00 102 H 20 122/46 93 L 07/05/19 12:00 97.5 F L 82 23 128/46 93 L 07/05/19 11:22 85 Intake and Output 07/05/19 07/06/19 07/06/19 22:59 06:59 14:59 Intake Total 480 323.660 280 Output Total 280 375 115 Balance 200 -51.340 165 Intake: IV 80 80 30 0.9NS 80 80 30 Intake, IV Titration 243.660 Amount Heparin Sod,Pork in 0.45% 243.660 NaCl 25,000 unit In 0.45 % NaCl 1 250ml.bag @ 11. 023 UNITS/KG/HR 10 mls/hr IV .Q24H [facility] Rx#: [id number] Oral 250 Tube Feeding 400 Output: Urine 280 375 115 Other: Voiding Method Indwelling Catheter Indwelling Catheter Indwelling Catheter # Bowel Movements 1 Weight 92.1 kg Results - Lab Results Most recent lab results ABG pH 7.34 (7.35-7.45) L 07/03/19 21:44 ABG pCO2 44 mmHg (35-45) 07/03/19 21:44 ABG pO2 152 mmHg (83-108) H 07/03/19 21:44 ABG HCO3 24 mmol/L (21-25) 07/03/19 21:44 ABG O2 Saturation 99.5 % (94-97) H 07/03/19 21:44 Calcium 8.5 mg/dL (8.4-10.2) 07/06/19 04:43 Magnesium 2.0 mg/dL (1.6-2.3) 07/05/19 02:39 07/06/19 04:43 07/06/19 04:43 Assessment and Plan Plan: Assessment: 1. Acute kidney injury secondary to ATN secondary to hemodynamic instability and diuresis. Creatinine up to 2.2 today. 2. Dyspnea secondary to volume overload. Improved. 3. Hypertensive urgency. Now controlled. 4. Non-ST elevated myocardial infarction. 5. Acute diastolic CHF. 6. Anemia. We will add iron deficiency. Stool for occult blood negative. No active bleeding. Plan: Maintain Lasix 40 mg IV once daily. Check urinalysis. Check renal ultrasound. Hold Cozaar. Avoid nephrotoxins. Check iron studies. Continue to monitor renal function and urine output. Thank you for the consultation. I will continue to follow the patient with you during her hospital stay.
[2019-07-06 11:42] LABS: Glucose,Whole Blood 125 mg/dL (75-99)
--- NOTE | 2019-07-06 13:03 | US ---
EXAMINATION TYPE: US kidneys/renal and bladder DATE OF EXAM: 07/06/2019 COMPARISON: NONE CLINICAL HISTORY: km. Morbidly obese patient in ICU, h/o renal cysts EXAM MEASUREMENTS: Right Kidney: 10.0 x 4.8 x 5.8 cm Left Kidney: 10.0 x 3.6 x 5.9 cm Right Kidney: small cyst seen mid pole = 1.2cm Left Kidney: Difficult to visualize due to bowel gas and habitus, no hydronephrosis or masses seen Bladder: not distended IMPRESSION: LIMITED EXAMINATION DEMONSTRATING A SMALL CYST IN THE MID POLAR REGION OF THE RIGHT KIDNEY. THERE IS NO EVIDENCE OF HYDRONEPHROSIS AT THIS TIME.
[2019-07-06 13:38] LABS: Appearance,Urine Clear (Clear); Bacteria,Urine Rare /hpf; Bilirubin,Urine Negative (Negative); Blood,Urine Negative (Negative); Color,Urine Yellow; Glucose,Urine (UA) Negative (Negative); Hyaline Casts,Urine 4 /lpf (0-2); Ketones,Urine Negative (Negative); Leukocyte Esterase,Urine Moderate (Negative); Mucus,Urine Rare /hpf; Nitrite,Urine Negative (Negative); Protein,Urine Negative (Negative); RBC,Urine 4 /hpf (0-5); Squamous Epithelial Cell,Urine <1 /hpf (0-4); Urobilinogen,Urine <2.0 mg/dL (<2.0); WBC,Urine 12 /hpf (0-5)
[2019-07-06] MEDS: LIDOCAINE 4% CREAM 5 GM TUBE TOPICAL PRN ×2 (15:18→19:12)
[2019-07-06 16:30] LABS: Glucose,Whole Blood 123 mg/dL (75-99)
[2019-07-06] MEDS ORDERED: ONDANSETRON 4 MG/2 ML VIAL IVP PRN (17:55)
[2019-07-06] MEDS: CYCLOBENZAPRINE 5 MG TAB PO PRN (18:56)
[2019-07-06 20:15] LABS: Glucose,Whole Blood 129 mg/dL (75-99)
[2019-07-07] MEDS: NITROGLYCERIN OINT 1 INCH/GM PACKET TOPICAL SCH ×4 (00:03→23:28)
[2019-07-07] MEDS: HEPARIN SOD,PORK IN 0.45% NACL 25,000 UNIT in 0.45% NACL 1 250ML.BAG IV SCH (02:15)
[2019-07-07 03:53] LABS: Mycoplasma IgM Antibody 0.41 INDEX (<=0.90)
[2019-07-07 05:06] LABS: Basophils # (A) 0.1 k/uL (0-0.2); Basophils % (A) 1 %; Eosinophils # (A) 0.9 k/uL (0-0.7); Eosinophils % (A) 6 %; HCT 24.4 % (34.0-46.0); HGB 8.1 gm/dL (11.4-16.0); Lymphocytes # (A) 1.6 k/uL (1.0-4.8); Lymphocytes % (A) 10 %; MCH 29.7 pg (25.0-35.0); MCHC 33.3 g/dL (31.0-37.0); MCV 89.1 fL (80.0-100.0); Mean Platelet Volume 7.1; Monocytes # (A) 0.9 k/uL (0-1.0); Monocytes % (A) 6 %; Neutrophils # (A) 12.2 k/uL (1.3-7.7); Neutrophils % (A) 76 %; Platelet Count 333 k/uL (150-450); RBC 2.74 m/uL (3.80-5.40); RDW 13.1 % (11.5-15.5); WBC 15.9 k/uL (3.8-10.6)
[2019-07-07 05:51] LABS: Calcium 8.1 mg/dL (8.4-10.2)
[2019-07-07 05:54] LABS: Potassium 4.3 mmol/L (3.5-5.1)
[2019-07-07] MEDS: INSULIN ASPART (NovoLOG) 100 UNIT/ML VIAL SQ SCH ×4 (06:33→20:37)
[2019-07-07] MEDS: IPRATROPIUM-ALBUTEROL 3 ML NEB INHALATION SCH ×4 (07:50→19:43)
[2019-07-07] MEDS: CALCIUM CARBONATE 500 MG CHEWABLE PO SCH (08:39)
[2019-07-07] MEDS: PANTOPRAZOLE 40 MG TABLET PO SCH (08:39)
[2019-07-07] MEDS: ASPIRIN 325 MG TAB PO SCH (08:39)
[2019-07-07] MEDS: hydrALAZINE HCL 50 MG TAB PO SCH ×3 (08:40→20:41)
[2019-07-07] MEDS: FUROSEMIDE 10 MG/ML 4 ML VIAL IV SCH (08:40)
[2019-07-07] MEDS: DILTIAZEM ORAL 60 MG TAB PO SCH ×3 (08:40→20:41)
[2019-07-07] MEDS: CHOLECALCIFEROL 1,000 UNIT TAB PO SCH (08:40)
[2019-07-07] MEDS: [UNRECOGNIZED DRUG - OTHER] TOPICAL SCH ×2 (08:41→20:41)
[2019-07-07] MEDS: HYDROmorphone 0.5 MG/0.5 ML SYRINGE IVP PRN (08:41)
[2019-07-07 10:34] LABS: Iron Saturation 45.67 (12.00-45.00)
[2019-07-07 10:45] LABS: Ferritin 204.7 ng/mL (10.0-291.0)
[2019-07-07] MEDS ORDERED: LIDOCAINE 4% CREAM 5 GM TUBE TOPICAL PRN (11:15)
[2019-07-07 11:47] LABS: Glucose,Whole Blood 120 mg/dL (75-99)
[2019-07-07] MEDS: HYDROcodone/APAP 5-325MG 1 EACH TAB PO PRN ×2 (11:56→18:28)
--- NOTE | 2019-07-07 13:13 | PN ---
PROGRESS NOTE The patient is seen for followup for acute kidney injury. Currently patient is maintained on Lasix 40 mg IV daily. Her urine output has picked up from about 15 to 30 mL an hour to 70 to 100 mL an hour now. Blood pressure is not low. The patient has had some oral intake. PHYSICAL EXAMINATION: On examination this morning blood pressure was 115/48, heart rate 81 per minute. She is afebrile. EXAMINATION OF THE HEART: S1, S2. EXAMINATION OF THE LUNGS: Bilateral breath sounds are heard. Decreased breath sounds at the bases. Abdomen is soft, nontender. Examination of lower extremities shows trace edema bilaterally. MARINE FITTER EXAM: Grossly intact. LABS: Labs show sodium 134, potassium 4.3, BUN 62, serum creatinine 2.5. Potassium was 4.3. Hemoglobin 8.1 g/dL. ASSESSMENT: 1. Acute kidney injury, most likely cardiorenal. Urine output was low, suggesting an element of acute tubular necrosis as well. This seems to have improved although serum creatinine is a bit higher. There are no nephrotoxic agents on board. Ultrasound of the kidneys does not show any evidence of obstruction. I will leave the Renteria catheter in for one more day and repeat labs in a.m. Repeat chest x-ray tomorrow. 2. Hypertension, currently controlled. 3. Diastolic heart failure, continue with IV Lasix. 4. Anemia, no active bleeding noted. Iron saturation was 45% on 07/06. PLAN: Repeat labs in a.m. Repeat chest x-ray in a.m. Continue with the Lasix for now. MMODL / IJN: [id number] /
--- NOTE | 2019-07-07 13:37 | P.PN ---
Subjective Patient's shortness of breath is better. No chest discomfort dizziness lightheadedness She is resting comfortably in bed Creatinine is rising. Her blood pressure is well controlled Blood pressure 115/48 mmHg Breath sounds are clear no rhonchi no crackles Heart sounds S1 and S2 are normal Abdomen soft Impression hypertension Chronic kidney disease with acute worsening Congestive heart failure, acute diastolic Plan Continue IV Lasix Objective - Vital Signs Vital signs: Vital Signs Temp 98.0 F 07/07/19 08:00 Pulse 82 07/07/19 11:32 Resp 20 07/07/19 08:00 BP 148/49 07/07/19 08:00 Pulse Ox 98 07/07/19 08:00 Intake & Output 07/06/19 07/07/19 07/07/19 18:59 06:59 18:59 Intake Total 880 330 40 Output Total 397 195 215 Balance 483 135 -175 Weight 94.5 kg Intake: IV 130 80 40 0.9NS 130 80 40 Intake, IV Titration 300 250 Amount Azithromycin 500 mg In 250 Sodium Chloride 0.9% 250 ml @ 250 mls/hr IVPB DAILY [facility] Rx#:[id number] Heparin Sod,Pork in 0.45% 250 NaCl 25,000 unit In 0.45 % NaCl 1 250ml.bag @ 11. 023 UNITS/KG/HR 10 mls/hr IV .Q24H [facility] Rx#: [id number] cefTRIAXone 1 gm In 50 Sodium Chloride 0.9% 50 ml @ 100 mls/hr IVPB Q24HR [facility] Rx#:[id number] Oral 450 Output: Urine 397 195 215 Other: Voiding Method Indwelling Catheter Indwelling Catheter Indwelling Catheter - Labs CBC & Chem 7: 07/07/19 04:53 07/07/19 04:53 Labs: Abnormal Lab Results - Last 24 Hours (Table) 07/04/19 07/06/19 07/06/19 Range/Units 08:32 11:25 13:20 WBC (3.8-10.6) k/uL RBC (3.80-5.40) m/uL Hgb (11.4-16.0) gm/dL Hct (34.0-46.0) % Neutrophils # (1.3-7.7) k/uL Eosinophils # (0-0.7) k/uL APTT (22.0-30.0) sec Sodium (137-145) mmol/L BUN (7-17) mg/dL Creatinine (0.52-1.04) mg/dL Glucose (74-99) mg/dL POC Glucose (mg/dL) (75-99) mg/dL Calcium (8.4-10.2) mg/dL TIBC 208 L (228-460) ug/dL Iron Saturation 45.67 H (12.00-45.00) Ur Leukocyte Esterase Moderate H (Negative) Urine WBC 12 H (0-5) /hpf Urine Bacteria Rare H (None) /hpf Hyaline Casts 4 H (0-2) /lpf Urine Mucus Rare H (None) /hpf Mycoplasma pneumon IgG 2.25 H (<=0.90) INDEX 07/06/19 07/06/19 07/07/19 Range/Units 16:29 20:14 04:53 WBC 15.9 H (3.8-10.6) k/uL RBC 2.74 L (3.80-5.40) m/uL Hgb 8.1 L (11.4-16.0) gm/dL Hct 24.4 L (34.0-46.0) % Neutrophils # 12.2 H (1.3-7.7) k/uL Eosinophils # 0.9 H (0-0.7) k/uL APTT (22.0-30.0) sec Sodium (137-145) mmol/L BUN (7-17) mg/dL Creatinine (0.52-1.04) mg/dL Glucose (74-99) mg/dL POC Glucose (mg/dL) 123 H 129 H (75-99) mg/dL Calcium (8.4-10.2) mg/dL TIBC (228-460) ug/dL Iron Saturation (12.00-45.00) Ur Leukocyte Esterase (Negative) Urine WBC (0-5) /hpf Urine Bacteria (None) /hpf Hyaline Casts (0-2) /lpf Urine Mucus (None) /hpf Mycoplasma pneumon IgG (<=0.90) INDEX 07/07/19 07/07/19 07/07/19 Range/Units 04:53 04:53 11:45 WBC (3.8-10.6) k/uL RBC (3.80-5.40) m/uL Hgb (11.4-16.0) gm/dL Hct (34.0-46.0) % Neutrophils # (1.3-7.7) k/uL Eosinophils # (0-0.7) k/uL APTT 51.0 H (22.0-30.0) sec Sodium 134 L (137-145) mmol/L BUN 62 H (7-17) mg/dL Creatinine 2.55 H (0.52-1.04) mg/dL Glucose 104 H (74-99) mg/dL POC Glucose (mg/dL) 120 H (75-99) mg/dL Calcium 8.1 L (8.4-10.2) mg/dL TIBC (228-460) ug/dL Iron Saturation (12.00-45.00) Ur Leukocyte Esterase (Negative) Urine WBC (0-5) /hpf Urine Bacteria (None) /hpf Hyaline Casts (0-2) /lpf Urine Mucus (None) /hpf Mycoplasma pneumon IgG (<=0.90) INDEX Microbiology - Last 24 Hours (Table) 07/03/19 20:45 Blood Culture - Preliminary Blood No Growth after 72 hours 07/06/19 16:45 Urine Culture - Preliminary Urine,Catheterized
[2019-07-07] MEDS: CYCLOBENZAPRINE 5 MG TAB PO PRN ×2 (13:56→21:17)
--- NOTE | 2019-07-07 14:08 | P.PN ---
Subjective Progress Note Date: 07/07/19 Progress Note Date: 07/06/19 79-year-old female with multiple medical problem presented to [facility] complaining of significant shortness of breath for the last a few days. Admission with significant increased weight with slight chest tightness and pressure nausea low-grade temperature with some chills at the time. Patient denies any traveling history recently he was seen by her primary care physician Dr. Donahue and prescribed azithromycin apparently took the medication which did not make any different. Patient become sicker and sicker finally not been able to lay down flat not been able to ambulate walk and cough become more foamy and productive. Ended up coming [facility] where was seen and evaluated she had significant hypoxia and very tachypnea and tachycardia ended up going for CTA did not show any PE but showed significant finding consistent with the fluid overload and early pulmonary edema. Lasix was giving patient was placed on BiPAP at the time her troponin came back mildly elevated as well was admitted to the ICU on IV Rocephin and Zithromax she was on IV nitro initially was switched to night pride 2.5 g and consult pulmonary and cardiology. 07/05/19: Patient is sitting up in in chair stating that her breathing is improved and she is feeling better. Patient denies any chest pain or shortness of breath. She does not lay flat, patient has not been any activity that has caused shortness of breath at this time. She has a positive cough however no sputum. Patient is afebrile vital signs stable, 93% on room air. WBC 16.5, hemoglobin 8.7, P1 has increased to 54, creatinine 1.74. Patient was seen by orthopedics who does not feel that the patient needs any injections at this time for right hip bursitis, this can be done in outpatient setting. Patient may be weightbearing as tolerated. No surgical intervention at this time. 07/06/2019: Patient is sitting up in a chair in no acute distress, patient states that she is breathing better and starting to feel better. Patient denies any chest pain or shortness of breath. Patient remained afebrile blood pressure to 127/92, heart rate 84, pulse ox 90% on room air. WBC 15.4, hemoglobin 8.1, platelet 337, potassium 4.2, BUN is elevated at 60, creatinine 2.20. This is increased compared to yesterday. Chest x-ray continues to show evidence of mild congestive heart failure. Patient continues to be on Lasix at 40 mg twice a day. Heart catheterization is planned for the next 24-48 hours once her heart failure has improved and kidney function is improved. 07/07: Patient remains in the intensive care unit as a selective care overflow patient. Patient denies having any chest pain, improved shortness of breath. S he is complaining of bilateral hip pain more so to the right than the left. She has been getting Dilaudid around the clock which will be transitioned to oral Hanahan and lidocaine cream. Patient is complaining of dry nose for which saline spray will be added. Cardiology is recommending continuing IV Lasix. Nephrology recommends continued Lasix for now. Repeat chest x-ray has been ordered and labs. Physical therapy has recommended either home care or subacute rehab. Anticipate discharge in the next 48 hours. Review of Systems CONSTITUTIONAL: Well-developed, no acute distress, Mildly overweight EYES: No icterus sclerae, no conjunctivitis. EARS, NOSE, MOUTH, THROAT, and FACE: No sore throat, lymphadenopathy, carotid bruits or deformity. RESPIRATORY: No shortness of breath reports cough reports wheezes no significant dyspnea. CARDIOVASCULAR: No CP, Palpitation, PND, Orthopnea, or angina. GASTROINTESTINAL: No Abd pain, Nausea or vomiting, no Diarrhea or constipation, No GI Bleed, no distention or masses. GENITOURINARY: Negative for Hematuria or UTI, no kidney stones. INTEGUMENT/BREAST: Negative for any muscular injury with mild osteoarthritis.. HEMATOLOGIC/LYMPHATIC: Negative for bleed or purpura. MUSCULOSKELTAL: Significant pain in bilateral hips, worse on the right. NEURLOGICAL: No LOC, Sz or syncope, blurred vision dizziness or abnormality.. BEHAVIORAL/PSYCH: Negative. ENDOCRINE: Negative. Objective - Vital Signs Vital signs: Vital Signs Temp 98.0 F 07/07/19 08:00 Pulse 86 07/07/19 08:02 Resp 20 07/07/19 08:00 BP 148/49 07/07/19 08:00 Pulse Ox 98 07/07/19 08:00 Intake & Output 07/06/19 07/07/19 07/07/19 18:59 06:59 18:59 Intake Total 880 330 40 Output Total 397 195 215 Balance 483 135 -175 Weight 94.5 kg Intake: IV 130 80 40 0.9NS 130 80 40 Intake, IV Titration 300 250 Amount Azithromycin 500 mg In 250 Sodium Chloride 0.9% 250 ml @ 250 mls/hr IVPB DAILY [facility] Rx#:[id number] Heparin Sod,Pork in 0.45% 250 NaCl 25,000 unit In 0.45 % NaCl 1 250ml.bag @ 11. 023 UNITS/KG/HR 10 mls/hr IV .Q24H [facility] Rx#: [id number] cefTRIAXone 1 gm In 50 Sodium Chloride 0.9% 50 ml @ 100 mls/hr IVPB Q24HR [facility] Rx#:[id number] Oral 450 Output: Urine 397 195 215 Other: Voiding Method Indwelling Catheter Indwelling Catheter Indwelling Catheter - Exam General Appearance: Alert, cooperative, no acute distress, obese. Patient is resting in the recliner and appears to be comfortable. She experiences hip pain with minimal movement. Neck HEENT: Supple, no lymphadenopathy, no thyroid enlargement, no carotid bruits. Lungs: Decreased breath sound bilaterally, no wheezes, no deformity. Chest Wall: Decrease expansion with deep inspiration no tenderness and no deformity was found on exam, no costochondral pain or discomfort. Heart: Regular rate and rhythm, S1, S2 normal, mild tachycardia, no murmur, rub or gallop. Back: Symmetric, no curvature, ROM normal, no CVA tenderness. Abdomen: Soft, non-tender, bowel sounds active all four quadrants, no masses, no organomegaly. Extremities: Trace edema, bilateral hip pain Pulses: 2+ and symmetric. Skin: Skin color, texture, tugor normal, no rashes or lesions. Neurologic: Alert oriented x3 cranial nerves II through XII intact, no motor deficit, no abnormal balance or gait. - Labs CBC & Chem 7: 07/07/19 04:53 07/07/19 04:53 Labs: Abnormal Lab Results - Last 24 Hours (Table) 07/04/19 07/06/19 07/06/19 Range/Units 08:32 11:25 11:25 WBC (3.8-10.6) k/uL RBC (3.80-5.40) m/uL Hgb (11.4-16.0) gm/dL Hct (34.0-46.0) % Neutrophils # (1.3-7.7) k/uL Eosinophils # (0-0.7) k/uL APTT 55.5 H (22.0-30.0) sec Sodium (137-145) mmol/L BUN (7-17) mg/dL Creatinine (0.52-1.04) mg/dL Glucose (74-99) mg/dL POC Glucose (mg/dL) (75-99) mg/dL Calcium (8.4-10.2) mg/dL TIBC 208 L (228-460) ug/dL Iron Saturation 45.67 H (12.00-45.00) Ur Leukocyte Esterase (Negative) Urine WBC (0-5) /hpf Urine Bacteria (None) /hpf Hyaline Casts (0-2) /lpf Urine Mucus (None) /hpf Mycoplasma pneumon IgG 2.25 H (<=0.90) INDEX 07/06/19 07/06/19 07/06/19 Range/Units 11:41 13:20 16:29 WBC (3.8-10.6) k/uL RBC (3.80-5.40) m/uL Hgb (11.4-16.0) gm/dL Hct (34.0-46.0) % Neutrophils # (1.3-7.7) k/uL Eosinophils # (0-0.7) k/uL APTT (22.0-30.0) sec Sodium (137-145) mmol/L BUN (7-17) mg/dL Creatinine (0.52-1.04) mg/dL Glucose (74-99) mg/dL POC Glucose (mg/dL) 125 H 123 H (75-99) mg/dL Calcium (8.4-10.2) mg/dL TIBC (228-460) ug/dL Iron Saturation (12.00-45.00) Ur Leukocyte Esterase Moderate H (Negative) Urine WBC 12 H (0-5) /hpf Urine Bacteria Rare H (None) /hpf Hyaline Casts 4 H (0-2) /lpf Urine Mucus Rare H (None) /hpf Mycoplasma pneumon IgG (<=0.90) INDEX 07/06/19 07/07/19 07/07/19 Range/Units 20:14 04:53 04:53 WBC 15.9 H (3.8-10.6) k/uL RBC 2.74 L (3.80-5.40) m/uL Hgb 8.1 L (11.4-16.0) gm/dL Hct 24.4 L (34.0-46.0) % Neutrophils # 12.2 H (1.3-7.7) k/uL Eosinophils # 0.9 H (0-0.7) k/uL APTT 51.0 H (22.0-30.0) sec Sodium (137-145) mmol/L BUN (7-17) mg/dL Creatinine (0.52-1.04) mg/dL Glucose (74-99) mg/dL POC Glucose (mg/dL) 129 H (75-99) mg/dL Calcium (8.4-10.2) mg/dL TIBC (228-460) ug/dL Iron Saturation (12.00-45.00) Ur Leukocyte Esterase (Negative) Urine WBC (0-5) /hpf Urine Bacteria (None) /hpf Hyaline Casts (0-2) /lpf Urine Mucus (None) /hpf Mycoplasma pneumon IgG (<=0.90) INDEX 07/07/19 Range/Units 04:53 WBC (3.8-10.6) k/uL RBC (3.80-5.40) m/uL Hgb (11.4-16.0) gm/dL Hct (34.0-46.0) % Neutrophils # (1.3-7.7) k/uL Eosinophils # (0-0.7) k/uL APTT (22.0-30.0) sec Sodium 134 L (137-145) mmol/L BUN 62 H (7-17) mg/dL Creatinine 2.55 H (0.52-1.04) mg/dL Glucose 104 H (74-99) mg/dL POC Glucose (mg/dL) (75-99) mg/dL Calcium 8.1 L (8.4-10.2) mg/dL TIBC (228-460) ug/dL Iron Saturation (12.00-45.00) Ur Leukocyte Esterase (Negative) Urine WBC (0-5) /hpf Urine Bacteria (None) /hpf Hyaline Casts (0-2) /lpf Urine Mucus (None) /hpf Mycoplasma pneumon IgG (<=0.90) INDEX Microbiology - Last 24 Hours (Table) 07/03/19 20:45 Blood Culture - Preliminary Blood No Growth after 72 hours 07/06/19 16:45 Urine Culture - Preliminary Urine,Catheterized Assessment and Plan Plan: 1 acute hypoxic respiratory failure secondary to acute pulmonary edema and acute diastolic heart failure. Continue Lasix 40 mg IV daily, I&O and daily weights, cardiology and pulmonary medicine consults appreciated. 2 possible acute diastolic heart failure. Continue as in #1. 3 COPD suspected. BiPAP discontinued. O2 via nasal cannula. continue with O2 and updraft with her history of Eosinophilic Dermatitis abnormality watch for any Eosinophilic Pneumonia. 4. acute kidney injury with stage III chronic kidney disease: Nephrology consult appreciated. Continue IV Lasix. 5 hypertension urgency requiring nipride drip. Nipride gtt discontinued. Continue Cardizem 60 mg 3 times daily, hydralazine 50 mg 3 times daily, Nitro- Bid. 6 elevated troponin with acute non-ST [place]. Cardiology consult appreciated. No plan for any intervention. 7 chronic pain syndrome: tramadol. 8. Eosinophilic Dermatitis. May use bio oil from home twice a day. 9 severe right hip pain secondary to bursitis. Dilaudid discontinued, Hanahan and lidocaine cream added. 10 hyperglycemia: Patient will be on Accu-Chek with sliding scales coverage there steroid protocol. 11 DVT prophylaxis:heparin 5000 units subcutaneous twice a day. 12 GI prophylaxis: pantoprazole 40 mg daily. CODE STATUS: Full code. Discharge plan: To be determined. PT is recommending home with homecare or subacute rehab. Anticipate discharge next 48 hours. Impression and plan of care have been directed as dictated by the signing physician. Soo Benz nurse practitioner acting as scribe for signing physician.
--- NOTE | 2019-07-07 16:17 | P.PN ---
Subjective Progress Note Date: 07/07/19 79-year-old female patient is being seen in follow-up in the intensive care unit. This morning the patient shortness of breath has improved and she reports improvement in her overall pulmonary status and breathing status. She denies having any chest pain. No cough sputum production. No chest that is so wheezing. No hemoptysis. No pleurisy. The patient has no fever or chills. Blood pressures under better control. She is receiving empiric antibiotic coverage with IV Rocephin. She is still on Lasix 40 mg IV and the dose has been reduced to once a day. The fluid balance over the past 24 hours has been positive a 70 mL. However there 2 days prior to that the patient has diuresed more than 4 L and she has been negative fluid balance. The hemoglobin stable at 8.1. The white cell count stable at 15.9. Renal function is also up and the patient's creatinine is up to 2.55 and the patient has developed an acute kidney injury probably due to a combination of contrast and hypertension diuresis. No major swelling in lower extremities. She is producing urine output although the overall urine output dropped as the patient developed an acute on top of chronic kidney injury. Nephrology is also on the case. Note that the CAT scan of the chest that was done earlier showed pulmonary edema and bilateral pleural effusions. There was no evidence of any pulmonary embolism. Lower extremity Dopplers were negative. Echocardiogram showed ejection fraction of 55-60%. Objective - Vital Signs Vital signs: Vital Signs Temp 98.1 F 07/07/19 12:00 Pulse 88 07/07/19 15:24 Resp 16 07/07/19 12:00 BP 122/42 07/07/19 12:00 Pulse Ox 96 07/07/19 12:00 Intake & Output 07/06/19 07/07/19 07/07/19 18:59 06:59 18:59 Intake Total 880 330 440 Output Total 397 195 495 Balance 483 135 -55 Weight 94.5 kg Intake: IV 130 80 40 0.9NS 130 80 40 Intake, IV Titration 300 250 Amount Azithromycin 500 mg In 250 Sodium Chloride 0.9% 250 ml @ 250 mls/hr IVPB DAILY COUNT INCLUDES THE [facility] Rx#:[id number] Heparin Sod,Pork in 0.45% 250 NaCl 25,000 unit In 0.45 % NaCl 1 250ml.bag @ 11. 023 UNITS/KG/HR 10 mls/hr IV .Q24H [facility] Rx#: [id number] cefTRIAXone 1 gm In 50 Sodium Chloride 0.9% 50 ml @ 100 mls/hr IVPB Q24HR [facility] Rx#:[id number] Oral 450 400 Output: Urine 397 195 495 Other: Voiding Method Indwelling Catheter Indwelling Catheter Indwelling Catheter - Exam GENERAL EXAM: Alert, active, comfortable in no apparent distress. Oxygen at 2 L/m per nasal cannula. HEAD: Normocephalic. EYES: Normal reaction of pupils, equal size. NOSE: Clear with pink turbinates. THROAT: No erythema or exudates. NECK: No masses, no JVD. CHEST: No chest wall deformity. LUNGS: Equal air entry with crackles in the bilateral posterior bases. CVS: S1 and S2 normal with no audible murmur, regular rhythm. ABDOMEN: No hepatosplenomegaly, normal bowel sounds, no guarding or rigidity. SPINE: No scoliosis or deformity SKIN: No rashes CENTRAL NERVOUS SYSTEM: No focal deficits, tone is normal in all 4 extremities. EXTREMITIES: There is no peripheral edema. No clubbing, no cyanosis. Peripheral pulses are intact. - Labs CBC & Chem 7: 07/07/19 04:53 07/07/19 04:53 Labs: Abnormal Lab Results - Last 24 Hours (Table) 07/04/19 07/06/19 07/06/19 Range/Units 08:32 11:25 16:29 WBC (3.8-10.6) k/uL RBC (3.80-5.40) m/uL Hgb (11.4-16.0) gm/dL Hct (34.0-46.0) % Neutrophils # (1.3-7.7) k/uL Eosinophils # (0-0.7) k/uL APTT (22.0-30.0) sec Sodium (137-145) mmol/L BUN (7-17) mg/dL Creatinine (0.52-1.04) mg/dL Glucose (74-99) mg/dL POC Glucose (mg/dL) 123 H (75-99) mg/dL Calcium (8.4-10.2) mg/dL TIBC 208 L (228-460) ug/dL Iron Saturation 45.67 H (12.00-45.00) Mycoplasma pneumon IgG 2.25 H (<=0.90) INDEX 07/06/19 07/07/19 07/07/19 Range/Units 20:14 04:53 04:53 WBC 15.9 H (3.8-10.6) k/uL RBC 2.74 L (3.80-5.40) m/uL Hgb 8.1 L (11.4-16.0) gm/dL Hct 24.4 L (34.0-46.0) % Neutrophils # 12.2 H (1.3-7.7) k/uL Eosinophils # 0.9 H (0-0.7) k/uL APTT 51.0 H (22.0-30.0) sec Sodium (137-145) mmol/L BUN (7-17) mg/dL Creatinine (0.52-1.04) mg/dL Glucose (74-99) mg/dL POC Glucose (mg/dL) 129 H (75-99) mg/dL Calcium (8.4-10.2) mg/dL TIBC (228-460) ug/dL Iron Saturation (12.00-45.00) Mycoplasma pneumon IgG (<=0.90) INDEX 07/07/19 07/07/19 Range/Units 04:53 11:45 WBC (3.8-10.6) k/uL RBC (3.80-5.40) m/uL Hgb (11.4-16.0) gm/dL Hct (34.0-46.0) % Neutrophils # (1.3-7.7) k/uL Eosinophils # (0-0.7) k/uL APTT (22.0-30.0) sec Sodium 134 L (137-145) mmol/L BUN 62 H (7-17) mg/dL Creatinine 2.55 H (0.52-1.04) mg/dL Glucose 104 H (74-99) mg/dL POC Glucose (mg/dL) 120 H (75-99) mg/dL Calcium 8.1 L (8.4-10.2) mg/dL TIBC (228-460) ug/dL Iron Saturation (12.00-45.00) Mycoplasma pneumon IgG (<=0.90) INDEX Microbiology - Last 24 Hours (Table) 07/03/19 20:45 Blood Culture - Preliminary Blood No Growth after 72 hours 07/06/19 16:45 Urine Culture - Preliminary Urine,Catheterized Assessment and Plan Plan: #1 Acute hypoxic respiratory failure secondary to acute exacerbation of diastolic congestive heart failure and hypertensive emergency. The patient was taken off the BiPAP and the patient is currently on 2 L about 2 by nasal cannula. Echocardiogram showed a hypertensive heart disease with preserved LV function with an ejection fraction of 55-60% and concentric left ventricular hypertrophy. #2 Hypertensive emergency requiring nipride infusion and currently she is off the infusion back on her antihypertensive medication which included a combinat ion of hydralazine 50 mg by mouth 3 times a day, Cardizem 60 mg by mouth 3 times a day. #3 History of hypertension. #4 troponin leak an underlying possibility of non-ST segment elevation myocardial infarction is felt to be less likely. #5 Gastroesophageal reflux disease. #6 Previous bowel resection. #7 acute kidney injury, secondary to hypertension and contrast in addition to diuresis. The patient has a chronic kidney disease on top she developed acute kidney injury in the urine output has dropped significantly and over the past 24 hours the patient was in a slight positive fluid balance and currently she is on Lasix 40 mg IV push every 24 hours. #8 Previous tobacco dependence #9 chronic obstructive pulmonary disease. Plan Blood pressures under better control. The patient is feeling of any chest pain. We'll monitor the kidney function. The patient is on Lasix once a day. Repeat creatinine in the morning. Avoid nephrotoxic agents. Currently on 2 L about 2 by nasal cannula per of any significant fluid overload. Ultrasound the kidneys shows no evidence of any hydronephrosis. Cardiology is on the case. We'll keep the patient ICU for now for another 24 hours. The breath sounds are diminished in lung bases as the patient had some small bilateral pleural effusion in the setting of congestion heart failure. We'll keep the empiric antibiotic coverage as the patient's prognosis on a level was elevated at 1.35 at the time of admission.
[2019-07-07 16:46] LABS: Glucose,Whole Blood 139 mg/dL (75-99)
[2019-07-07] MEDS: SALINE NASAL GEL 14.1 GM TUBE TOPICAL PRN (17:08)
[2019-07-07 20:31] LABS: Glucose,Whole Blood 130 mg/dL (75-99)
[2019-07-08 04:50] LABS: Basophils # (A) 0.1 k/uL (0-0.2); Basophils % (A) 0 %; Eosinophils # (A) 1.1 k/uL (0-0.7); Eosinophils % (A) 7 %; HCT 25.5 % (34.0-46.0); HGB 8.4 gm/dL (11.4-16.0); Lymphocytes # (A) 1.6 k/uL (1.0-4.8); Lymphocytes % (A) 10 %; MCH 29.5 pg (25.0-35.0); MCHC 33.1 g/dL (31.0-37.0); MCV 89.2 fL (80.0-100.0); Monocytes % (A) 6 %; Neutrophils # (A) 12.2 k/uL (1.3-7.7); Neutrophils % (A) 75 %; Platelet Count 350 k/uL (150-450); RBC 2.86 m/uL (3.80-5.40); RDW 13.1 % (11.5-15.5); WBC 16.3 k/uL (3.8-10.6)
[2019-07-08 05:01] LABS: Calcium 8.7 mg/dL (8.4-10.2)
[2019-07-08] MEDS: INSULIN ASPART (NovoLOG) 100 UNIT/ML VIAL SQ SCH ×4 (06:55→22:08)
[2019-07-08] MEDS: PANTOPRAZOLE 40 MG TABLET PO SCH (06:55)
[2019-07-08] MEDS: IPRATROPIUM-ALBUTEROL 3 ML NEB INHALATION SCH ×4 (07:03→19:00)
--- NOTE | 2019-07-08 07:31 | P.PN ---
Subjective Progress Note Date: 07/08/19 On today's evaluation of 07/08/2019 I'm seeing this patient for a follow-up. The patient not having any significant respiratory distress. The patient is laying comfortably in bed. She was on room air. While sleeping, she had some oxygen desaturation and the patient based on that was placed on 2 L about 2 by nasal cannula. No cough. No sputum production. No chest pain. Unfortunately her creatinine is up to 3.0. Nevertheless the patient is still producing adequate urine output. She has a nonoliguric acute kidney injury today to the contrast versus acute hypertension. The patient was taken off the ROSETTE inhibitor. The patient currently has a creatinine of 3.04. Potassium level is at 5.0. Serum bicarb is 24. Blood pressure was noted to be slightly elevated and based on that I added Norvasc 10 mg by mouth daily. She remains on high dose of 50 mg 3 times a day. She is on empiric antibiotic coverage based on an elevated procalcitonin level. She is not having any fever. Urine and the blood culture been both negative. CAT scan of the chest earlier showed some pulmonary edema and bilateral pleural effusion. There was also a pulmonary embolism. Doppler of the lower extremity was negative. Ejection fraction on echocardiogram was 55-60%. Her net fluid balance over the past 24 hours has been +618 mL. Her urine output has picked up and she is produced 975 mL of urine output since this morning. Her weight is stable at 93.7 kg. Objective - Vital Signs Vital signs: Vital Signs Temp 98.3 F 07/08/19 04:00 Pulse 88 07/08/19 07:18 Resp 18 07/08/19 07:18 BP 149/51 07/08/19 04:00 Pulse Ox 95 07/08/19 04:00 Intake & Output 07/07/19 07/08/19 07/08/19 18:59 06:59 18:59 Intake Total 440 Output Total 595 380 Balance -155 -380 Weight 93.7 kg Intake: IV 40 0.9NS 40 Oral 400 Output: Urine 595 380 Other: Voiding Method Indwelling Catheter Indwelling Catheter - Exam GENERAL EXAM: Alert, active, comfortable in no apparent distress. Currently on room air oxygen HEAD: Normocephalic. EYES: Normal reaction of pupils, equal size. NOSE: Clear with pink turbinates. THROAT: No erythema or exudates. NECK: No masses, no JVD. CHEST: No chest wall deformity. LUNGS: Equal air entry with crackles in the bilateral posterior bases. CVS: S1 and S2 normal with no audible murmur, regular rhythm. ABDOMEN: No hepatosplenomegaly, normal bowel sounds, no guarding or rigidity. SPINE: No scoliosis or deformity SKIN: No rashes CENTRAL NERVOUS SYSTEM: No focal deficits, tone is normal in all 4 extremities. EXTREMITIES: There is no peripheral edema. No clubbing, no cyanosis. Peripheral pulses are intact. - Labs CBC & Chem 7: 07/08/19 04:12 07/08/19 04:12 Labs: Abnormal Lab Results - Last 24 Hours (Table) 07/06/19 07/07/19 07/07/19 Range/Units 11:25 11:45 16:44 WBC (3.8-10.6) k/uL RBC (3.80-5.40) m/uL Hgb (11.4-16.0) gm/dL Hct (34.0-46.0) % Neutrophils # (1.3-7.7) k/uL Eosinophils # (0-0.7) k/uL Sodium (137-145) mmol/L BUN (7-17) mg/dL Creatinine (0.52-1.04) mg/dL POC Glucose (mg/dL) 120 H 139 H (75-99) mg/dL TIBC 208 L (228-460) ug/dL Iron Saturation 45.67 H (12.00-45.00) 07/07/19 07/08/19 07/08/19 Range/Units 20:29 04:12 04:12 WBC 16.3 H (3.8-10.6) k/uL RBC 2.86 L (3.80-5.40) m/uL Hgb 8.4 L (11.4-16.0) gm/dL Hct 25.5 L (34.0-46.0) % Neutrophils # 12.2 H (1.3-7.7) k/uL Eosinophils # 1.1 H (0-0.7) k/uL Sodium 134 L (137-145) mmol/L BUN 66 H (7-17) mg/dL Creatinine 3.04 H (0.52-1.04) mg/dL POC Glucose (mg/dL) 130 H (75-99) mg/dL TIBC (228-460) ug/dL Iron Saturation (12.00-45.00) Microbiology - Last 24 Hours (Table) 07/03/19 20:45 Blood Culture - Preliminary Blood No Growth after 96 hours 07/06/19 16:45 Urine Culture - Final Urine,Catheterized Assessment and Plan Plan: #1 Acute hypoxic respiratory failure secondary to acute exacerbation of diastolic congestive heart failure and hypertensive emergency. The patient was taken off the BiPAP and the patient is currently on 2 L about 2 by nasal cannula. Echocardiogram showed a hypertensive heart disease with preserved LV function with an ejection fraction of 55-60% and concentric left ventricular hypertrophy. The patient's saturations improved and the patient is currently on room air oxygen. #2 Hypertensive emergency requiring nipride infusion and currently she is off the infusion back on her antihypertensive medication which included a combination of hydralazine 50 mg by mouth 3 times a day, Cardizem 60 mg by mouth 3 times a day. Overall blood pressure remains slightly elevated and the patient is still and accommodation of hydralazine and Cardizem. #3 History of hypertension. #4 troponin leak an underlying possibility of non-ST segment elevation myocardial infarction is felt to be less likely. #5 Gastroesophageal reflux disease. #6 Previous bowel resection. #7 acute kidney injury, secondary to hypertension and contrast in addition to diuresis. The patient has a chronic kidney disease on top she developed acute kidney injury which is nonoliguric in nature and the creatinine is on the rise at 3.0. No signs of any fluid overload patient is sitting daily Lasix. #8 Previous tobacco dependence #9 chronic obstructive pulmonary disease. Plan Blood pressures under better control. The creatinine is on the raspy the patient is nonoliguric. Avoid nephrotoxic agents. Monitor creatinine. No signs of any fluid overload. Daily Lasix. Continue to monitor this patient's progression to make further recommendations based on her progress. No plans for cardiac catheterization especially with an underlying acute kidney injury. Bus Monitor on the case. The patient's baseline creatinine was 1.35 at time of admission.
[2019-07-08] MEDS ORDERED: FUROSEMIDE 10 MG/ML 4 ML VIAL IV STA (08:10)
[2019-07-08] MEDS: NITROGLYCERIN OINT 1 INCH/GM PACKET TOPICAL SCH ×2 (08:41→16:24)
[2019-07-08] MEDS: CALCIUM CARBONATE 500 MG CHEWABLE PO SCH (08:41)
[2019-07-08] MEDS: DILTIAZEM ORAL 60 MG TAB PO SCH (08:41)
[2019-07-08] MEDS: ASPIRIN 325 MG TAB PO SCH (08:41)
[2019-07-08] MEDS: CHOLECALCIFEROL 1,000 UNIT TAB PO SCH (08:41)
[2019-07-08] MEDS: hydrALAZINE HCL 50 MG TAB PO SCH ×3 (08:41→22:11)
[2019-07-08] MEDS: [UNRECOGNIZED DRUG - OTHER] TOPICAL SCH ×2 (08:42→22:11)
[2019-07-08] MEDS: CARVEDILOL 6.25 MG TAB PO SCH ×2 (08:55→18:14)
[2019-07-08] MEDS ORDERED: amLODIPine 10 MG TAB PO SCH (09:00)
[2019-07-08] MEDS: HYDROcodone/APAP 5-325MG 1 EACH TAB PO PRN ×3 (09:37→21:31)
[2019-07-08] MEDS: LIDOCAINE 5% PATCH TOPICAL SCH (10:13)
--- NOTE | 2019-07-08 10:35 | P.PN ---
Subjective This is Imelda Weber PA-C dictating a progress note on this patient The patient was interviewed and examined by me as well as by Dr. Kendrick Case discussed with Dr. Kendrick and he agrees with the plan of care IMPRESSION / ASSESSMENT: Acute kidney injury, creatinine increasing, nephrology following Congestive heart failure exacerbation secondary to diastolic dysfunction, improving Abnormal troponins, possible NSTEMI Hypertension, blood pressure has improved Dyslipidemia COPD PLAN: Continue medical management with beta blockers aspirin and statin until creatinine improves and patient can have an angiogram Decrease aspirin to 81 mg daily Discontinue diltiazem and start carvedilol 6.25 mg twice a day Start atorvastatin 20 mg daily continue to monitor BMP HPI/interval history Patient is a 79-year-old female with a past medical history of hypertension and dyslipidemia who presented to the hospital with complaints of shortness of breath. She was found to be severely hypertensive. Chest CT showed no evidence of PE, did show mild to moderate bilateral pleural effusions and pulmonary interstitial edema. Echocardiogram showed EF 55-60%, grade 1 diastolic dysfunction. She was also found to have an acute kidney injury. She was diuresed with IV Lasix. She was also found to have elevated troponins but no significant ST or T-wave abnormalities. She is awaiting coronary angiogram when her kidney function improves. Today her creatinine is 3.04 from 2.55 yesterday. Her Lasix dose has been decreased to once daily. Blood pressure has been well controlled. Patient seen and examined sitting up in the chair. Denies any jordan st discomfort. She does still complain of some shortness of breath which she attributes to "her nose being plugged up". States she does sleep with the head of her bed elevated " because of her neck". EXAMINATION Temperature 98.1F, pulse 87, respirations 22, blood pressure 131/50, oxygen saturation 92% on room air Patient seen and examined sitting up in her chair, in no acute distress Lungs are clear to auscultation bilaterally, no wheezing, rhonchi or crackles noted Heart is regular, normal S1-S2, no murmurs noted No elevated JVD No lower extremity edema REVIEW OF LABS, ECG WBC 16.3, hemoglobin 8.4, platelets 350, potassium 5.0, BUN 66, creatinine 3.04 Sinus rhythm on telemetry Objective - Vital Signs Vital signs: Vital Signs Temp 98.1 F 07/08/19 08:01 Pulse 87 07/08/19 08:01 Resp 22 07/08/19 08:01 BP 131/50 07/08/19 08:01 Pulse Ox 92 L 07/08/19 08:01 Intake & Output 07/07/19 07/08/19 07/08/19 18:59 06:59 18:59 Intake Total 440 Output Total 595 380 225 Balance -155 -380 -225 Weight 93.7 kg Intake: IV 40 0.9NS 40 Oral 400 Output: Urine 595 380 225 Other: Voiding Method Indwelling Catheter Indwelling Catheter Indwelling Catheter - Labs CBC & Chem 7: 07/08/19 04:12 07/08/19 04:12 Labs: Abnormal Lab Results - Last 24 Hours (Table) 07/06/19 07/07/19 07/07/19 Range/Units 11:25 11:45 16:44 WBC (3.8-10.6) k/uL RBC (3.80-5.40) m/uL Hgb (11.4-16.0) gm/dL Hct (34.0-46.0) % Neutrophils # (1.3-7.7) k/uL Eosinophils # (0-0.7) k/uL Sodium (137-145) mmol/L BUN (7-17) mg/dL Creatinine (0.52-1.04) mg/dL POC Glucose (mg/dL) 120 H 139 H (75-99) mg/dL TIBC 208 L (228-460) ug/dL Iron Saturation 45.67 H (12.00-45.00) 07/07/19 07/08/19 07/08/19 Range/Units 20:29 04:12 04:12 WBC 16.3 H (3.8-10.6) k/uL RBC 2.86 L (3.80-5.40) m/uL Hgb 8.4 L (11.4-16.0) gm/dL Hct 25.5 L (34.0-46.0) % Neutrophils # 12.2 H (1.3-7.7) k/uL Eosinophils # 1.1 H (0-0.7) k/uL Sodium 134 L (137-145) mmol/L BUN 66 H (7-17) mg/dL Creatinine 3.04 H (0.52-1.04) mg/dL POC Glucose (mg/dL) 130 H (75-99) mg/dL TIBC (228-460) ug/dL Iron Saturation (12.00-45.00) Microbiology - Last 24 Hours (Table) 07/03/19 20:45 Blood Culture - Preliminary Blood No Growth after 96 hours 07/06/19 16:45 Urine Culture - Final Urine,Catheterized
[2019-07-08 11:58] LABS: Glucose,Whole Blood 132 mg/dL (75-99)
--- NOTE | 2019-07-08 14:39 | P.PN ---
Subjective Progress Note Date: 07/08/19 Progress Note Date: 07/06/19 79-year-old female with multiple medical problem presented to [facility] at [facility] complaining of significant shortness of breath for the last a few days. Admission with significant increased weight with slight chest tightness and pressure nausea low-grade temperature with some chills at the time. Patient denies any traveling history recently he was seen by her primary care physician Dr. Donahue and prescribed azithromycin apparently took the medication which did not make any different. Patient become sicker and sicker finally not been able to lay down flat not been able to ambulate walk and cough become more foamy and productive. Ended up coming to [facility] at [facility] where was seen and evaluated she had significant hypoxia and very tachypnea and tachycardia ended up going for CTA did not show any PE but showed significant finding consistent with the fluid overload and early pulmonary edema. Lasix was giving patient was placed on BiPAP at the time her troponin came back mildly elevated as well was admitted to the ICU on IV Rocephin and Zithromax she was on IV nitro initially was switched to night pride 2.5 g and consult pulmonary and cardiology. 07/05/19: Patient is sitting up in in chair stating that her breathing is improved and she is feeling better. Patient denies any chest pain or shortness of breath. She does not lay flat, patient has not been any activity that has caused shortness of breath at this time. She has a positive cough however no sputum. Patient is afebrile vital signs stable, 93% on room air. WBC 16.5, hemoglobin 8.7, P1 has increased to 54, creatinine 1.74. Patient was seen by orthopedics who does not feel that the patient needs any injections at this time for right hip bursitis, this can be done in outpatient setting. Patient may be weightbearing as tolerated. No surgical intervention at this time. 07/06/2019: Patient is sitting up in a chair in no acute distress, patient states that she is breathing better and starting to feel better. Patient denies any chest pain or shortness of breath. Patient remained afebrile blood pressure to 127/92, heart rate 84, pulse ox 90% on room air. WBC 15.4, hemoglobin 8.1, platelet 337, potassium 4.2, BUN is elevated at 60, creatinine 2.20. This is increased compared to yesterday. Chest x-ray continues to show evidence of mild congestive heart failure. Patient continues to be on Lasix at 40 mg twice a day. Heart catheterization is planned for the next 24-48 hours once her heart failure has improved and kidney function is improved. 07/07: Patient remains in the intensive care unit as a selective care overflow patient. Patient denies having any chest pain, improved shortness of breath. S he is complaining of bilateral hip pain more so to the right than the left. She has been getting Dilaudid around the clock which will be transitioned to oral [place] and lidocaine cream. Patient is complaining of dry nose for which saline spray will be added. Cardiology is recommending continuing IV Lasix. Nephrology recommends continued Lasix for now. Repeat chest x-ray has been ordered and labs. Physical therapy has recommended either home care or subacute rehab. Anticipate discharge in the next 48 hours. Cardiology is not planning for heart catheterization at this point. 07/08: Patient remains in the intensive care unit waiting for a bed on cardiac stepdown unit. She continues to have hip pain more so to the right hip. Dr. Estrada has changed lidocaine cream to lidocaine patch which seems to be helping her. She received 1 dose of IV Lasix 40 mg this morning. Renal function is worsening with BUN of 66 and creatinine 3.04, hemoglobin 8.4, WBC 16.3. Cardiology has discontinued Cardizem and started Coreg 6.25 mg twice daily and started atorvastatin and baby aspirin. Urine cultures have been finalized with no growth and blood culture no growth at 96 hours. Social work h as discussed discharge planning with the patient and she is planning to go home is not considering subacute rehab. Home care will be set up for her. Review of Systems CONSTITUTIONAL: Well-developed, no acute distress, no fever, no chills EYES: No icterus sclerae, no conjunctivitis. EARS, NOSE, MOUTH, THROAT, and FACE: No sore throat, lymphadenopathy, carotid bruits or deformity. RESPIRATORY: No shortness of breath reports cough reports wheezes no significant dyspnea. CARDIOVASCULAR: No CP, Palpitation, PND, Orthopnea, or angina. GASTROINTESTINAL: No Abd pain, Nausea or vomiting, no Diarrhea or constipation, No GI Bleed, no distention or masses. GENITOURINARY: Negative for Hematuria or UTI, no kidney stones. INTEGUMENT/BREAST: Negative for any muscular injury with mild osteoarthritis.. HEMATOLOGIC/LYMPHATIC: Negative for bleed or purpura. MUSCULOSKELTAL: Significant pain in bilateral hips, worse on the right. NEURLOGICAL: No LOC, Sz or syncope, blurred vision dizziness or abnormality.. BEHAVIORAL/PSYCH: Negative. ENDOCRINE: Negative. Objective - Vital Signs Vital signs: Vital Signs Temp 98.1 F 07/08/19 08:01 Pulse 75 07/08/19 11:07 Resp 19 07/08/19 11:07 BP 131/50 07/08/19 08:01 Pulse Ox 92 L 07/08/19 08:01 Intake & Output 07/07/19 07/08/19 07/08/19 18:59 06:59 18:59 Intake Total 440 Output Total 595 380 225 Balance -155 -380 -225 Weight 93.7 kg Intake: IV 40 0.9NS 40 Oral 400 Output: Urine 595 380 225 Other: Voiding Method Indwelling Catheter Indwelling Catheter Indwelling Catheter - Exam General Appearance: Alert, cooperative, no acute distress, obese. Patient is resting in the recliner and appears to be comfortable. She experiences hip pain with minimal movement. Neck HEENT: Supple, no lymphadenopathy, no thyroid enlargement, no carotid bruits. Lungs: Decreased breath sound bilaterally, no wheezes, no deformity. Chest Wall: Decrease expansion with deep inspiration no tenderness and no deformity was found on exam, no costochondral pain or discomfort. Heart: Regular rate and rhythm, S1, S2 normal, mild tachycardia, no murmur, rub or gallop. Back: Symmetric, no curvature, ROM normal, no CVA tenderness. Abdomen: Soft, non-tender, bowel sounds active all four quadrants, no masses, no organomegaly. Extremities: Trace edema, bilateral hip pain worse on the right with tenderness Pulses: 2+ and symmetric. Skin: Skin color, texture, tugor normal, no rashes or lesions. Neurologic: Alert oriented x3 cranial nerves II through XII intact, no motor deficit, no abnormal balance or gait. - Labs CBC & Chem 7: 07/08/19 04:12 07/08/19 04:12 Labs: Abnormal Lab Results - Last 24 Hours (Table) 07/07/19 07/07/19 07/08/19 Range/Units 16:44 20:29 04:12 WBC 16.3 H (3.8-10.6) k/uL RBC 2.86 L (3.80-5.40) m/uL Hgb 8.4 L (11.4-16.0) gm/dL Hct 25.5 L (34.0-46.0) % Neutrophils # 12.2 H (1.3-7.7) k/uL Eosinophils # 1.1 H (0-0.7) k/uL Sodium (137-145) mmol/L BUN (7-17) mg/dL Creatinine (0.52-1.04) mg/dL POC Glucose (mg/dL) 139 H 130 H (75-99) mg/dL 07/08/19 Range/Units 04:12 WBC (3.8-10.6) k/uL RBC (3.80-5.40) m/uL Hgb (11.4-16.0) gm/dL Hct (34.0-46.0) % Neutrophils # (1.3-7.7) k/uL Eosinophils # (0-0.7) k/uL Sodium 134 L (137-145) mmol/L BUN 66 H (7-17) mg/dL Creatinine 3.04 H (0.52-1.04) mg/dL POC Glucose (mg/dL) (75-99) mg/dL Microbiology - Last 24 Hours (Table) 07/03/19 20:45 Blood Culture - Preliminary Blood No Growth after 96 hours 07/06/19 16:45 Urine Culture - Final Urine,Catheterized Assessment and Plan Plan: 1 acute hypoxic respiratory failure secondary to acute pulmonary edema and acute diastolic heart failure. Continue Lasix 40 mg IV dose daily, I&O and daily weights, cardiology and pulmonary medicine consults appreciated. 2 possible acute diastolic heart failure. Continue as in #1. 3 COPD suspected. BiPAP discontinued. O2 via nasal cannula. continue with O2 and updraft with her history of Eosinophilic Dermatitis abnormality watch for any Eosinophilic Pneumonia. 4. acute kidney injury with stage III chronic kidney disease: Nephrology consult appreciated. Continue IV Lasix. 5 hypertension urgency requiring nipride drip. Nipride gtt discontinued. Discontinue Cardizem 60 mg 3 times daily, continue hydralazine 50 mg 3 times daily, Nitro-Bid. 6 elevated troponin with acute non-ST ID. Cardiology consult appreciated. No plan for any intervention. Continue aspirin 81 mg daily, atorvastatin 20 mg daily, Coreg 6.25 mg twice daily, Cardizem discontinued 7 chronic pain syndrome: tramadol. 8. Eosinophilic Dermatitis. May use bio oil from home twice a day. 9 severe right hip pain secondary to bursitis. Dilaudid discontinued, [place] and lidocaine cream added. 10 hyperglycemia: Patient will be on Accu-Chek with sliding scales coverage there steroid protocol. 11 DVT prophylaxis:heparin 5000 units subcutaneous twice a day. 12 GI prophylaxis: pantoprazole 40 mg daily. CODE STATUS: Full code. Discharge plan: Home with home care Impression and plan of care have been directed as dictated by the signing physician. Soo Benz nurse practitioner acting as scribe for signing physician.
--- NOTE | 2019-07-08 15:08 | PN ---
PROGRESS NOTE Patient is seen for followup for acute kidney injury, mainly ATN, currently nonoliguric. Patient was oliguric initially. She is maintained on a small dose of IV Lasix. Serum creatinine has been increasing, it has gone up to 3.0 from 2.5 yesterday. Urine output has picked up to about 975 mL for the last 24 hours. Blood pressure is not low. Patient is not on any nephrotoxic medications. Patient did have the contrast for chest CTA on 07/03/2019. PHYSICAL EXAMINATION: On examination today, blood pressure was 131/50, heart rate 87 per minute, patient is afebrile. Examination of the heart S1, S2. Examination of the lungs, bilateral breath sounds are heard. Abdomen is soft, nontender. Examination of the lower extremities shows edema 2+ bilaterally with some blisters noted. LABS: Show sodium 134, potassium 5.0, chloride 99, BUN 66, creatinine 3.04, hemoglobin 8.4 g/dL. ASSESSMENT: 1. Acute kidney injury, ATN initially oliguric; currently nonoliguric secondary to contrast nephropathy and component of cardiorenal syndrome as well. Serum creatinine has increased. However, patient is volume overloaded. Her urine output has picked up. I will continue with the once a day dosing on the Lasix. We will check a chest x-ray today. Continue to avoid any other nephrotoxic agents and avoid hypotension. 2. Hypertension, now controlled. 3. Diastolic heart failure, somewhat improved. 4. Anemia with no evidence of iron deficiency. PLAN: Continue with IV Lasix for now unless renal function is significantly worse tomorrow. MMODL / IJN: [id number] /
[2019-07-08 17:10] LABS: Glucose,Whole Blood 126 mg/dL (75-99)
[2019-07-08] MEDS: ATORVASTATIN 20 MG TAB PO SCH (22:05)
[2019-07-08 22:09] LABS: Glucose,Whole Blood 124 mg/dL (75-99)
[2019-07-09] MEDS: IPRATROPIUM-ALBUTEROL 3 ML NEB INHALATION SCH ×4 (07:37→20:50)
[2019-07-09 07:48] LABS: HCT 26.5 % (34.0-46.0); HGB 8.4 gm/dL (11.4-16.0); MCH 28.6 pg (25.0-35.0); MCHC 31.6 g/dL (31.0-37.0); MCV 90.7 fL (80.0-100.0); Mean Platelet Volume 8.2; Platelet Count 358 k/uL (150-450); RBC 2.92 m/uL (3.80-5.40); RDW 13.1 % (11.5-15.5); WBC 14.3 k/uL (3.8-10.6)
[2019-07-09] MEDS: NITROGLYCERIN OINT 1 INCH/GM PACKET TOPICAL SCH ×3 (07:51→16:56)
[2019-07-09 08:04] LABS: Calcium 8.7 mg/dL (8.4-10.2)
[2019-07-09] MEDS: INSULIN ASPART (NovoLOG) 100 UNIT/ML VIAL SQ SCH ×3 (08:26→17:03)
[2019-07-09] MEDS: CARVEDILOL 6.25 MG TAB PO SCH (08:30)
[2019-07-09] MEDS: PANTOPRAZOLE 40 MG TABLET PO SCH (08:30)
[2019-07-09] MEDS: ASPIRIN 81 MG PO SCH (08:30)
[2019-07-09] MEDS: CHOLECALCIFEROL 1,000 UNIT TAB PO SCH (08:30)
[2019-07-09] MEDS: hydrALAZINE HCL 50 MG TAB PO SCH ×3 (08:30→21:13)
[2019-07-09] MEDS: CALCIUM CARBONATE 500 MG CHEWABLE PO SCH (08:30)
--- NOTE | 2019-07-09 08:30 | XR ---
EXAMINATION TYPE: XR chest 1V portable DATE OF EXAM: 07/09/2019 COMPARISON: Prior chest x-ray 07/05/2019 HISTORY: Fluid overload TECHNIQUE: Single frontal view of the chest is obtained. FINDINGS: Heart remains enlarged. There is no pneumothorax or evident effusion. Patchy basilar densi ty is improved. There are overlying cardiac leads. Aorta is dense. Central vascularity appears promin ently. IMPRESSION: There is some improvement in aeration. Persistent cardiomegaly.
[2019-07-09] MEDS: LIDOCAINE 5% PATCH TOPICAL SCH ×2 (08:31→09:59)
[2019-07-09] MEDS: [UNRECOGNIZED DRUG - OTHER] TOPICAL SCH ×2 (08:31→21:14)
--- NOTE | 2019-07-09 08:51 | P.PN ---
Subjective Progress Note Date: 07/09/19 His evaluation of 07/09/2019 the patient is feeling well. No respiratory difficulties. No chest pain. She is on room air oxygen. Blood pressure is slightly elevated still. The patient was switched from Cardizem and she is currently on Coreg at a dose of 6.25 mg twice a day patient also taking hydral azine 50 mg 3 times a day. Most recent blood pressure is 158 systolic over 52. The patient is showing improvement in her renal function. Creatinine today is down to 2.7 compared to 3 yesterday. As for the white cell count is at 14.3 with a hemoglobin of 8.4. The rest of the electrolytes show a potassium level of 5.0 sodium level of 133 and her BUN is a 67. She is producing urine output in the order of 5200 mL an hour. She is on no IV fluids. She is on no diuretics for now. CAT scan of the chest that was done earlier showed pulmonary edema and bilateral pleural effusions and there was no evidence of any pulmonary embolism. Subsequent chest x-rays was done today showed improvement in aeration in both lungs and there is still some persistent cardiomegaly. Her weight today is at 93.7. Objective - Vital Signs Vital signs: Vital Signs Temp 98.4 F 07/09/19 08:00 Pulse 75 07/09/19 08:00 Resp 12 07/09/19 08:00 BP 154/52 07/09/19 08:00 Pulse Ox 96 07/09/19 08:00 Intake & Output 07/08/19 07/09/19 07/09/19 18:59 06:59 18:59 Intake Total 250 Output Total 1150 1070 175 Balance -1150 -820 -175 Intake: Oral 250 Output: Urine 1150 1070 175 Other: Voiding Method Indwelling Catheter Indwelling Catheter # Bowel Movements 2 - Exam GENERAL EXAM: Alert, active, comfortable in no apparent distress. Currently on room air oxygen HEAD: Normocephalic. EYES: Normal reaction of pupils, equal size. NOSE: Clear with pink turbinates. THROAT: No erythema or exudates. NECK: No masses, no JVD. CHEST: No chest wall deformity. LUNGS: Equal air entry with crackles in the bilateral posterior bases. CVS: S1 and S2 normal with no audible murmur, regular rhythm. ABDOMEN: No hepatosplenomegaly, normal bowel sounds, no guarding or rigidity. SPINE: No scoliosis or deformity SKIN: No rashes CENTRAL NERVOUS SYSTEM: No focal deficits, tone is normal in all 4 extremities. EXTREMITIES: There is no peripheral edema. No clubbing, no cyanosis. Peripheral pulses are intact. - Labs CBC & Chem 7: 07/08/19 04:12 07/08/19 04:12 Labs: Abnormal Lab Results - Last 24 Hours (Table) 07/08/19 07/08/19 07/08/19 Range/Units 11:57 17:08 22:07 POC Glucose (mg/dL) 132 H 126 H 124 H (75-99) mg/dL Microbiology - Last 24 Hours (Table) 07/03/19 20:45 Blood Culture - Preliminary Blood No Growth after 120 hours Assessment and Plan Plan: #1 Acute hypoxic respiratory failure secondary to acute exacerbation of diastolic congestive heart failure and hypertensive emergency. The patient was taken off the BiPAP and the patient is currently on 2 L about 2 by nasal cannula . Echocardiogram showed a hypertensive heart disease with preserved LV function with an ejection fraction of 55-60% and concentric left ventricular hypertrophy. The patient's saturations improved and the patient is currently on room air oxygen. #2 Hypertensive emergency requiring nipride infusion and currently she is off the infusion back on her antihypertensive medication which included a com bination of hydralazine 50 mg by mouth 3 times a day, some was discontinued and the patient was placed on Coreg 6.25 mg by mouth twice a day. Worse in the process of monitoring blood pressure and the renal function for now. The renal function continues to improve. #3 History of hypertension. #4 troponin leak an underlying possibility of non-ST segment elevation myocardial infarction is felt to be less likely. #5 Gastroesophageal reflux disease. #6 Previous bowel resection. #7 acute kidney injury, secondary to hypertension and contrast in addition to diuresis. The patient has a chronic kidney disease on top she developed acute kidney injury which is nonoliguric patient's creatinine peaked at 3.0 on today's down to 2.7 and is improving. She is currently off Lasix #8 Previous tobacco dependence #9 chronic obstructive pulmonary disease. Plan Blood pressures under better control. Creatinine. No diuretics pH is on examination of Coreg and hydralazine for blood pressure control pH is on room air oxygen. Chest x-ray showing improvement in the pulmonary infiltrates and the edema and the congestion. She will need to ambulate. She will need to have a follow-up renal function tomorrow. The issue of cardiac catheterization will be left at a later stage once the renal function recovers.
[2019-07-09] MEDS ORDERED: FUROSEMIDE 10 MG/ML 4 ML VIAL IV STA (10:18)
--- NOTE | 2019-07-09 10:29 | P.PN ---
Subjective Patient is seen in follow-up for acute kidney injury. Creatinine peaked at 3.04 yesterday and is 2.74 today. Patient denies any chest pain or shortness of breath. Oral intake is good. She is eager to go home. Vital signs are stable. General: The patient appeared well nourished and normally developed. HEENT: Head exam is unremarkable. Neck is without jugular venous distension. LUNGS: Lungs are clear to auscultation and percussion. Breath sounds decreased. HEART: Rate and Rhythm are regular. First and second heart sounds normal. No murmurs, rubs or gallops. ABDOMEN: Abdominal exam reveals normal bowel sounds. Non-tender and non-distend ed. No evidence of peritonitis. EXTREMITITES: No clubbing, cyanosis, or edema. Chronic changes noted. Objective - Vital Signs Vital signs: Vital Signs Temp 98.4 F 07/09/19 08:00 Pulse 75 07/09/19 08:00 Resp 12 07/09/19 08:00 BP 154/52 07/09/19 08:00 Pulse Ox 96 07/09/19 08:00 Intake & Output 07/08/19 07/09/19 07/09/19 18:59 06:59 18:59 Intake Total 250 Output Total 1150 1070 175 Balance -1150 -820 -175 Intake: Oral 250 Output: Urine 1150 1070 175 Other: Voiding Method Indwelling Catheter Indwelling Catheter Indwelling Catheter # Bowel Movements 2 - Labs CBC & Chem 7: 07/08/19 04:12 07/08/19 04:12 Labs: Abnormal Lab Results - Last 24 Hours (Table) 07/08/19 07/08/19 07/08/19 Range/Units 11:57 17:08 22:07 POC Glucose (mg/dL) 132 H 126 H 124 H (75-99) mg/dL Microbiology - Last 24 Hours (Table) 07/03/19 20:45 Blood Culture - Preliminary Blood No Growth after 120 hours Assessment and Plan Plan: Assessment: 1. Acute kidney injury secondary to ATN secondary to hemodynamic instability and diuresis. Creatinine peaked at 3.04 yesterday and is 2.74 today. No proteinuria on UA. No hydronephrosis noted on kidney ultrasound. 2. Dyspnea secondary to volume overload. Improved. 3. Hypertensive urgency. Now controlled. 4. Non-ST elevated myocardial infarction. 5. Acute diastolic CHF. Plan: Lasix 40 mg IV once today. Continue to hold Cozaar. Avoid nephrotoxins. Continue to monitor renal function and urine output.
--- NOTE | 2019-07-09 11:58 | CDI ---
Documentation Clarification Form Date: 07/09/2019 11:48:12 AM From: Viktoriya CoradoVaughnROGER ruiz, CCDS Admit Date: 07/04/2019 2:00:00 AM Patient Name: Albina Roa Visit Number: [id number] Discharge Date: ATTENTION: The Clinical Documentation Specialists (CDI) and [facility] Coding Staff appreciate your assistance in clarifying documentation. Please respond to the clarification below the line at the bottom and electronically sign. The CDI & [facility] Coding staff will review the response and follow-up if needed. Please note: Queries are made part of the Legal Health Record. If you have any questions, please contact the author of this message via ITS. Dr. Janet Cobb: A diagnosis of anemia lacks specificity to accurately reflect your patients severity of condition and clarification is needed. Per the 07/08 nephrology progress note: "Anemia with no evidence of iron deficiency." History/Risk Factors: CHF, COPD, Morbid obesity, GERD, Hypertension, CKD III, ESBL urine, bowel resection, cholecystectomy. Fomer smoker. Clinical indicators: Presented to ED with SOB, respiratory distress, wheezes, rales & accessory muscle use. Admit with acute respiratory failure, combination of cardiac & pulmonary, acute on chronic diastolic CHF & right hip bursitis with chronic pain. Hemoglobin: 8.4 - 8.4 - 8.1 - 8.1 - 8.7 - 9.3 - 9.7 Hematocrit: 31.4 - 27.7 - 26.0 - 25.8 - 24.4 - 25.5 - 26.5 Treatment: O2, BiPAP, INH Albuterol, IV MagSulf, IV Nitro, IV Azithromycin, IV Rocephin, IV Lasix, IV Ativan, Heparin sq, IV Dilaudid, IV Solumedrol. In order to capture the severity of condition, please clarify the type of anemia and etiology if known: Acute blood loss anemia Acute on chronic blood loss anemia Chronic blood loss anemia Hemolytic anemia Drug induced anemia Nutritional anemia Anemia of chronic kidney disease Unable to determine Other, please specify (Last Revision: June 2017)anemia of chronic disease MTDD
[2019-07-09 12:13] LABS: Glucose,Whole Blood 111 mg/dL (75-99)
--- NOTE | 2019-07-09 12:33 | P.PN ---
Subjective This is Imelda Weber PA-C dictating a progress note on this patient The patient was interviewed and examined by me as well as by Dr. Kendrick Case discussed with Dr. Kendrick and he agrees with the plan of care IMPRESSION / ASSESSMENT: congestive heart failure exacerbation secondary to diastolic dysfunction, symptoms improved hypertension, blood pressure is been elevated in the 150s to 160 systolic acute kidney injury, creatinine improved to 2.74 from 3.04 yesterday abnormal troponins, possible NSTEMI vs type 2 AL dyslipidemia COPD PLAN: increase coreg to 12.5 BID for blood pressure control continue maximal medical management with beta blockers, aspirin and statin Plan for coronary angiogram when kidneys recover continue to monitor kidney function HPI/interval history patient is a 79-year-old female with a past medical history of hypertension and dyslipidemia who presented with complaints of shortness of breath. She was fou nd to be fairly hypertensive, in acute kidney injury and have elevated trops. She is awaiting a coronary angiogram when her creatinine improves. creatinine has improved slightly today. she is off lasix. Yesterday we switched her from cardizem to coreg. blood pressure has been sightly elevated. pt seen and examined sitting up in her chair. States her breathing has improved. Has been getting up but still feels her legs are weak. denies chest pain or palpitations or dizziness. EXAMINATION temperature 98.4F, pulse 75, respirations 12, blood pressure 154/52, oxygen saturation 96% on room air patient seen and examined resting comfortably in her chair, in no acute distress Lungs are clear to auscultation bilaterally, no wheezing rhonchi or crackles Heart is regular, no murmurs noted No elevated JVD Trace lower extremity edema REVIEW OF LABS, ECG WBC 14.3, hemoglobin 8.4, platelets 358,potassium 5.0, BUN 67, creatinine 2.74 Objective - Vital Signs Vital signs: Vital Signs Temp 98.4 F 07/09/19 08:00 Pulse 81 07/09/19 11:18 Resp 12 07/09/19 08:00 BP 154/52 07/09/19 08:00 Pulse Ox 96 07/09/19 08:00 Intake & Output 07/08/19 07/09/19 07/09/19 18:59 06:59 18:59 Intake Total 250 Output Total 1150 1070 175 Balance -1150 -820 -175 Intake: Oral 250 Output: Urine 1150 1070 175 Other: Voiding Method Indwelling Catheter Indwelling Catheter Indwelling Catheter # Bowel Movements 2 - Labs CBC & Chem 7: 07/09/19 04:25 07/09/19 04:25 Labs: Abnormal Lab Results - Last 24 Hours (Table) 07/08/19 07/08/19 07/09/19 Range/Units 17:08 22:07 04:25 WBC 14.3 H (3.8-10.6) k/uL RBC 2.92 L (3.80-5.40) m/uL Hgb 8.4 L (11.4-16.0) gm/dL Hct 26.5 L (34.0-46.0) % Sodium (137-145) mmol/L BUN (7-17) mg/dL Creatinine (0.52-1.04) mg/dL POC Glucose (mg/dL) 126 H 124 H (75-99) mg/dL 07/09/19 07/09/19 Range/Units 04:25 12:11 WBC (3.8-10.6) k/uL RBC (3.80-5.40) m/uL Hgb (11.4-16.0) gm/dL Hct (34.0-46.0) % Sodium 133 L (137-145) mmol/L BUN 67 H (7-17) mg/dL Creatinine 2.74 H (0.52-1.04) mg/dL POC Glucose (mg/dL) 111 H (75-99) mg/dL Microbiology - Last 24 Hours (Table) 07/03/19 20:45 Blood Culture - Preliminary Blood No Growth after 120 hours
--- NOTE | 2019-07-09 16:16 | P.PN ---
Subjective Progress Note Date: 07/09/19 Progress Note Date: 07/06/19 79-year-old female with multiple medical problem presented to [facility] complaining of significant shortness of breath for the last a few days. Admission with significant increased weight with slight chest tightness and pressure nausea low-grade temperature with some chills at the time. Patient denies any traveling history recently he was seen by her primary care physician Dr. Donahue and prescribed azithromycin apparently took the medication which did not make any different. Patient become sicker and sicker finally not been able to lay down flat not been able to ambulate walk and cough become more foamy and productive. Ended up coming to [facility] department at [facility] where was seen and evaluated she had significant hypoxia and very tachypnea and tachycardia ended up going for CTA did not show any PE but showed significant finding consistent with the fluid overload and early pulmonary edema. Lasix was giving patient was placed on BiPAP at the time her troponin came back mildly elevated as well was admitted to the ICU on IV Rocephin and Zithromax she was on IV nitro initially was switched to night pride 2.5 g and consult pulmonary and cardiology. 07/05/19: Patient is sitting up in in chair stating that her breathing is improved and she is feeling better. Patient denies any chest pain or shortness of breath. She does not lay flat, patient has not been any activity that has caused shortness of breath at this time. She has a positive cough however no sputum. Patient is afebrile vital signs stable, 93% on room air. WBC 16.5, hemoglobin 8.7, P1 has increased to 54, creatinine 1.74. Patient was seen by orthopedics who does not feel that the patient needs any injections at this time for right hip bursitis, this can be done in outpatient setting. Patient may be weightbearing as tolerated. No surgical intervention at this time. 07/06/2019: Patient is sitting up in a chair in no acute distress, patient states that she is breathing better and starting to feel better. Patient denies any chest pain or shortness of breath. Patient remained afebrile blood pressure to 127/92, heart rate 84, pulse ox 90% on room air. WBC 15.4, hemoglobin 8.1, platelet 337, potassium 4.2, BUN is elevated at 60, creatinine 2.20. This is increased compared to yesterday. Chest x-ray continues to show evidence of mild congestive heart failure. Patient continues to be on Lasix at 40 mg twice a day. Heart catheterization is planned for the next 24-48 hours once her heart failure has improved and kidney function is improved. 07/07: Patient remains in the intensive care unit as a selective care overflow patient. Patient denies having any chest pain, improved shortness of breath. S he is complaining of bilateral hip pain more so to the right than the left. She has been getting Dilaudid around the clock which will be transitioned to oral [place] and lidocaine cream. Patient is complaining of dry nose for which saline spray will be added. Cardiology is recommending continuing IV Lasix. Nephrology recommends continued Lasix for now. Repeat chest x-ray has been ordered and labs. Physical therapy has recommended either home care or subacute rehab. Anticipate discharge in the next 48 hours. Cardiology is not planning for heart catheterization at this point. 07/08: Patient remains in the intensive care unit waiting for a bed on cardiac stepdown unit. She continues to have hip pain more so to the right hip. Dr. Estrada has changed lidocaine cream to lidocaine patch which seems to be helping her. She received 1 dose of IV Lasix 40 mg this morning. Renal function is worsening with BUN of 66 and creatinine 3.04, hemoglobin 8.4, WBC 16.3. Cardiology has discontinued Cardizem and started Coreg 6.25 mg twice daily and started atorvastatin and baby aspirin. Urine cultures have been finalized with no growth and blood culture no growth at 96 hours. Social work h as discussed discharge planning with the patient and she is planning to go home is not considering subacute rehab. Home care will be set up for her. 07/09: Patient remains in intensive care unit awaiting a bed on the cardiac stepdown unit. She has been afebrile, heart rate 87, blood pressure 151/54, pulse ox 94% on room air. Repeat lab work this morning reveals WBC 14.3, hemoglobin 8.4, BUN 67 creatinine 2.74. Blood sugars run between 91 and 126. She is status post 1 dose of IV Lasix this morning. Today, cardiology has increased Coreg to 12.5 mg twice daily. Cozaar remains on hold. Patient is followed by nephrology. Patient continues to have right hip pain. Anticipate discharge in the next 24-48 hours. She is planning to return home. Review of Systems CONSTITUTIONAL: Well-developed, no acute distress, no fever, no chills EYES: No icterus sclerae, no conjunctivitis. EARS, NOSE, MOUTH, THROAT, and FACE: No sore throat, lymphadenopathy, carotid bruits or deformity. RESPIRATORY: No shortness of breath reports cough reports wheezes no significant dyspnea. CARDIOVASCULAR: No CP, Palpitation, PND, Orthopnea, or angina. GASTROINTESTINAL: No Abd pain, Nausea or vomiting, no Diarrhea or constipation, No GI Bleed, no distention or masses. GENITOURINARY: Negative for Hematuria or UTI, no kidney stones. INTEGUMENT/BREAST: Negative for any muscular injury with mild osteoarthritis.. HEMATOLOGIC/LYMPHATIC: Negative for bleed or purpura. MUSCULOSKELTAL: pain in bilateral hips, worse on the right. NEURLOGICAL: No LOC, Sz or syncope, blurred vision dizziness or abnormality.. BEHAVIORAL/PSYCH: Negative. ENDOCRINE: Negative. Objective - Vital Signs Vital signs: Vital Signs Temp 98.4 F 07/09/19 12:00 Pulse 86 07/09/19 12:00 Resp 12 07/09/19 12:00 BP 151/54 07/09/19 12:00 Pulse Ox 94 L 07/09/19 12:00 Intake & Output 07/08/19 07/09/19 07/09/19 18:59 06:59 18:59 Intake Total 250 Output Total 1150 1070 775 Balance -1150 -820 -775 Intake: Oral 250 Output: Urine 1150 1070 775 Other: Voiding Method Indwelling Catheter Indwelling Catheter Indwelling Catheter # Bowel Movements 2 - Exam General Appearance: Alert, cooperative, no acute distress, obese. Patient is resting in the recliner and appears to be comfortable. She experiences hip pain with minimal movement. Neck HEENT: Supple, no lymphadenopathy, no thyroid enlargement, no carotid bruits. Lungs: Decreased breath sound bilaterally, no wheezes. Chest Wall: Decrease expansion with deep inspiration no tenderness and no defo rmity was found on exam, no costochondral pain or discomfort. Heart: Regular rate and rhythm, S1, S2 normal, mild tachycardia, no murmur, rub or gallop. Back: Symmetric, no curvature, ROM normal, no CVA tenderness. Abdomen: Soft, non-tender, bowel sounds active all four quadrants, no masses, no organomegaly. Extremities: Trace edema, bilateral hip pain worse on the right with tenderness Pulses: 2+ and symmetric. Skin: Skin color, texture, tugor normal, no rashes or lesions. Neurologic: Alert oriented x3 cranial nerves II through XII intact, no motor deficit, no abnormal balance or gait. - Labs CBC & Chem 7: 07/09/19 04:25 07/09/19 04:25 Labs: Abnormal Lab Results - Last 24 Hours (Table) 07/08/19 07/08/19 07/09/19 Range/Units 17:08 22:07 04:25 WBC 14.3 H (3.8-10.6) k/uL RBC 2.92 L (3.80-5.40) m/uL Hgb 8.4 L (11.4-16.0) gm/dL Hct 26.5 L (34.0-46.0) % Sodium (137-145) mmol/L BUN (7-17) mg/dL Creatinine (0.52-1.04) mg/dL POC Glucose (mg/dL) 126 H 124 H (75-99) mg/dL 07/09/19 07/09/19 Range/Units 04:25 12:11 WBC (3.8-10.6) k/uL RBC (3.80-5.40) m/uL Hgb (11.4-16.0) gm/dL Hct (34.0-46.0) % Sodium 133 L (137-145) mmol/L BUN 67 H (7-17) mg/dL Creatinine 2.74 H (0.52-1.04) mg/dL POC Glucose (mg/dL) 111 H (75-99) mg/dL Microbiology - Last 24 Hours (Table) 07/03/19 20:45 Blood Culture - Preliminary Blood No Growth after 120 hours Assessment and Plan Plan: 1 acute hypoxic respiratory failure secondary to acute pulmonary edema and acute diastolic heart failure. Continue Lasix 40 mg IV dosed daily, I&O and daily weights, cardiology, nephrology and pulmonary medicine consults appreciated. 2 possible acute diastolic heart failure. Continue as in #1. 3 COPD suspected. BiPAP discontinued. O2 via nasal cannula. continue with O2 and updraft with her history of Eosinophilic Dermatitis abnormality watch for any Eosinophilic Pneumonia. 4. acute kidney injury with stage III chronic kidney disease: Nephrology consult appreciated. Continue IV Lasix. 5 hypertension urgency requiring nipride drip. Nipride gtt discontinued. Discontinue Cardizem 60 mg 3 times daily, continue hydralazine 50 mg 3 times daily, Nitro-Bid. 6 elevated troponin with acute non-ST PR. Cardiology consult appreciated. No plan for any intervention. Continue aspirin 81 mg daily, atorvastatin 20 mg daily, Coreg increased to 12.5 mg twice daily, Cardizem discontinued 7 chronic pain syndrome: tramadol. 8. Eosinophilic Dermatitis. May use bio oil from home twice a day. 9 severe right hip pain secondary to bursitis. Dilaudid discontinued, [place] and lidocaine cream added. 10 hyperglycemia: Patient will be on Accu-Chek with sliding scales coverage there steroid protocol. 11 DVT prophylaxis:heparin 5000 units subcutaneous twice a day. 12 GI prophylaxis: pantoprazole 40 mg daily. CODE STATUS: Full code. Discharge plan: Home with home care the next 24-48 hours. Impression and plan of care have been directed as dictated by the signing physician. Soo Benz nurse practitioner acting as scribe for signing physician.
[2019-07-09] MEDS: CARVEDILOL 12.5 MG TAB PO SCH (16:56)
[2019-07-09 17:04] LABS: Glucose,Whole Blood 127 mg/dL (75-99)
[2019-07-09 20:53] LABS: Glucose,Whole Blood 120 mg/dL (75-99)
[2019-07-09] MEDS: HYDROcodone/APAP 5-325MG 1 EACH TAB PO PRN (21:13)
[2019-07-09] MEDS: ATORVASTATIN 20 MG TAB PO SCH (21:13)
[2019-07-09] MEDS: CYCLOBENZAPRINE 5 MG TAB PO PRN (22:43)
[2019-07-10] MEDS: NITROGLYCERIN OINT 1 INCH/GM PACKET TOPICAL SCH ×3 (00:42→15:54)
[2019-07-10 05:15] LABS: Basophils # (A) 0.1 k/uL (0-0.2); Basophils % (A) 0 %; Eosinophils # (A) 1.1 k/uL (0-0.7); Eosinophils % (A) 9 %; HCT 25.5 % (34.0-46.0); HGB 8.6 gm/dL (11.4-16.0); Lymphocytes # (A) 1.7 k/uL (1.0-4.8); Lymphocytes % (A) 14 %; MCH 29.7 pg (25.0-35.0); MCHC 33.8 g/dL (31.0-37.0); MCV 87.9 fL (80.0-100.0); Mean Platelet Volume 6.7; Monocytes # (A) 0.8 k/uL (0-1.0); Monocytes % (A) 7 %; Neutrophils % (A) 67 %; Platelet Count 319 k/uL (150-450); RDW 12.8 % (11.5-15.5)
[2019-07-10 05:35] LABS: Calcium 8.6 mg/dL (8.4-10.2); Potassium 4.6 mmol/L (3.5-5.1)
[2019-07-10] MEDS: PANTOPRAZOLE 40 MG TABLET PO SCH (07:01)
[2019-07-10] MEDS: CARVEDILOL 12.5 MG TAB PO SCH ×2 (07:01→15:59)
[2019-07-10] MEDS: IPRATROPIUM-ALBUTEROL 3 ML NEB INHALATION SCH ×3 (07:45→16:18)
[2019-07-10] MEDS: CALCIUM CARBONATE 500 MG CHEWABLE PO SCH (08:13)
[2019-07-10] MEDS: hydrALAZINE HCL 50 MG TAB PO SCH ×2 (08:13→15:59)
[2019-07-10] MEDS: CHOLECALCIFEROL 1,000 UNIT TAB PO SCH (08:13)
[2019-07-10] MEDS: ASPIRIN 81 MG PO SCH (08:13)
[2019-07-10] MEDS: LIDOCAINE 5% PATCH TOPICAL SCH (08:14)
[2019-07-10] MEDS: [UNRECOGNIZED DRUG - OTHER] TOPICAL SCH (08:15)
[2019-07-10] MEDS: SALINE NASAL GEL 14.1 GM TUBE TOPICAL PRN (10:07)
[2019-07-10] MEDS: CYCLOBENZAPRINE 5 MG TAB PO PRN (10:42)
[2019-07-10] MEDS ORDERED: amLODIPine 5 MG TAB PO SCH ×2 (12:00→21:00)
--- NOTE | 2019-07-10 15:03 | P.PN ---
Subjective This is Imelda Weber PA-C dictating a progress note on this patient The patient was interviewed and examined by me as well as by Dr. Kendrick Case discussed with Dr. Kendrick and he agrees with the plan of care IMPRESSION / ASSESSMENT: congestive heart failure exacerbation secondary to diastolic dysfunction, symptoms improved hypertension, blood pressure remains elevated in the 150s to 160 systolic acute kidney injury, creatinine continues to improve, is 2.11 from 2.74 yesterday abnormal troponins, possible NSTEMI vs type 2 NC dyslipidemia COPD PLAN: Options for hypertension management are limited due to her kidney function, we'll start amlodipine 5 mg twice daily for blood pressure control Patient does not want to start atorvastatin because her experienced adverse reactions from it, discussed that she may not have those same reactions but we will give her pravastatin instead She is cleared for discharge from a cardiac standpoint to follow up with Dr. Kruger in the office within a week Plan for coronary angiogram when her kidneys recover Medical management with aspirin, statins and beta blockers for now HPI/interval history patient is a 79-year-old female with a past medical history of hypertension and dyslipidemia who presented with complaints of shortness of breath. She was found to be fairly hypertensive, in acute kidney injury and have elevated trops. Coronary angiogram could not be done secondary to her kidney function. She has been off the Lasix and her creatinine continues to improve. Yesterday we increased her Coreg but her blood pressure remains elevated in the 150s to 160s systolic. Patient seen and examined sitting up in her chair. States she is ready to go home. Denies any shortness of breath, chest pain palpitations dizziness lightheadedness or syncope. Complaining of right hip pain. He uses a walker to walk. No shortness of breath on exertion. EXAMINATION Temperature 98.5F, pulse 79, respirations 15, blood pressure 158/55, oxygen saturation 94% on room air patient seen and examined resting comfortably in her chair, in no acute distress Lungs are clear to auscultation bilaterally, no wheezing rhonchi or crackles Heart is regular, no murmurs noted No elevated JVD no lower extremity edema REVIEW OF LABS, ECG WBC 12.0, hemoglobin 8.6, platelets 319, potassium 4.6, BUN 61, creatinine 2.11 Objective - Vital Signs Vital signs: Vital Signs Temp 98.5 F 07/10/19 12:00 Pulse 77 07/10/19 12:07 Resp 15 07/10/19 12:00 BP 158/55 07/10/19 12:00 Pulse Ox 94 L 07/10/19 12:00 Intake & Output 07/09/19 07/10/19 07/10/19 18:59 06:59 18:59 Intake Total 100 870 Output Total 1500 925 875 Balance -1500 -825 -5 Weight 93.8 kg Intake: Intake, IV Titration 50 Amount cefTRIAXone 1 gm In 50 Sodium Chloride 0.9% 50 ml @ 100 mls/hr IVPB Q24HR [facility] Rx#:[id number] Oral 100 820 Output: Urine 1500 925 875 Other: Voiding Method Indwelling Catheter Indwelling Catheter Indwelling Catheter # Bowel Movements 2 - Labs CBC & Chem 7: 07/10/19 04:49 07/10/19 04:49 Labs: Abnormal Lab Results - Last 24 Hours (Table) 07/09/19 07/09/19 07/10/19 Range/Units 17:02 20:52 04:49 WBC 12.0 H (3.8-10.6) k/uL RBC 2.90 L (3.80-5.40) m/uL Hgb 8.6 L (11.4-16.0) gm/dL Hct 25.5 L (34.0-46.0) % Neutrophils # 8.0 H (1.3-7.7) k/uL Eosinophils # 1.1 H (0-0.7) k/uL Sodium (137-145) mmol/L BUN (7-17) mg/dL Creatinine (0.52-1.04) mg/dL POC Glucose (mg/dL) 127 H 120 H (75-99) mg/dL 07/10/19 Range/Units 04:49 WBC (3.8-10.6) k/uL RBC (3.80-5.40) m/uL Hgb (11.4-16.0) gm/dL Hct (34.0-46.0) % Neutrophils # (1.3-7.7) k/uL Eosinophils # (0-0.7) k/uL Sodium 134 L (137-145) mmol/L BUN 61 H (7-17) mg/dL Creatinine 2.11 H (0.52-1.04) mg/dL POC Glucose (mg/dL) (75-99) mg/dL Microbiology - Last 24 Hours (Table) 07/03/19 20:45 Blood Culture - Final Blood No Growth after 144 hours
--- NOTE | 2019-07-10 15:20 | P.PN ---
Subjective Progress Note Date: 07/10/19 On 07/10/2019, Albina is feeling well. She is a bit cold in the room due to some eating issues. Otherwise, she has no specific complaints. No respiratory difficulties no cough sputum production or chest tightness or wheezing. Renal function continues to improve in the creatinine is down to 2.0. She is producing adequate amount of urine output. Blood pressure is slightly elevated and for that reason 5 mg of Norvasc was started by mouth twice a day. The patient is on the Coreg dose of which was increased up to 12.5 mg by mouth twice a day. The patient is also on hydralazine. No chest pain. She was febrile at time of admission and she was covered with IV Rocephin. Note that the proBNP le alison was also elevated. Her white cell count was also elevated which ultimately improved. Cultures of been all negative. She has no sudden specific complaints for now. No plans for cardiac catheterization during the current hospitalization. Objective - Vital Signs Vital signs: Vital Signs Temp 98.5 F 07/10/19 12:00 Pulse 77 07/10/19 12:07 Resp 15 07/10/19 12:00 BP 158/55 07/10/19 12:00 Pulse Ox 94 L 07/10/19 12:00 Intake & Output 07/09/19 07/10/19 07/10/19 18:59 06:59 18:59 Intake Total 100 870 Output Total 1500 925 875 Balance -1500 -825 -5 Weight 93.8 kg Intake: Intake, IV Titration 50 Amount cefTRIAXone 1 gm In 50 Sodium Chloride 0.9% 50 ml @ 100 mls/hr IVPB Q24HR [facility] Rx#:[id number] Oral 100 820 Output: Urine 1500 925 875 Other: Voiding Method Indwelling Catheter Indwelling Catheter Indwelling Catheter # Bowel Movements 2 - Exam GENERAL EXAM: Alert, active, comfortable in no apparent distress. Currently on room air oxygen HEAD: Normocephalic. EYES: Normal reaction of pupils, equal size. NOSE: Clear with pink turbinates. THROAT: No erythema or exudates. NECK: No masses, no JVD. CHEST: No chest wall deformity. LUNGS: Equal air entry with crackles in the bilateral posterior bases. CVS: S1 and S2 normal with no audible murmur, regular rhythm. ABDOMEN: No hepatosplenomegaly, normal bowel sounds, no guarding or rigidity. SPINE: No scoliosis or deformity SKIN: No rashes CENTRAL NERVOUS SYSTEM: No focal deficits, tone is normal in all 4 extremities. EXTREMITIES: There is no peripheral edema. No clubbing, no cyanosis. Peripheral pulses are intact. - Labs CBC & Chem 7: 07/10/19 04:49 07/10/19 04:49 Labs: Abnormal Lab Results - Last 24 Hours (Table) 07/09/19 07/09/19 07/10/19 Range/Units 17:02 20:52 04:49 WBC 12.0 H (3.8-10.6) k/uL RBC 2.90 L (3.80-5.40) m/uL Hgb 8.6 L (11.4-16.0) gm/dL Hct 25.5 L (34.0-46.0) % Neutrophils # 8.0 H (1.3-7.7) k/uL Eosinophils # 1.1 H (0-0.7) k/uL Sodium (137-145) mmol/L BUN (7-17) mg/dL Creatinine (0.52-1.04) mg/dL POC Glucose (mg/dL) 127 H 120 H (75-99) mg/dL 07/10/19 Range/Units 04:49 WBC (3.8-10.6) k/uL RBC (3.80-5.40) m/uL Hgb (11.4-16.0) gm/dL Hct (34.0-46.0) % Neutrophils # (1.3-7.7) k/uL Eosinophils # (0-0.7) k/uL Sodium 134 L (137-145) mmol/L BUN 61 H (7-17) mg/dL Creatinine 2.11 H (0.52-1.04) mg/dL POC Glucose (mg/dL) (75-99) mg/dL Microbiology - Last 24 Hours (Table) 07/03/19 20:45 Blood Culture - Final Blood No Growth after 144 hours Assessment and Plan Plan: #1 Acute hypoxic respiratory failure secondary to acute exacerbation of diastolic congestive heart failure and hypertensive emergency. This has recovered and patient is currently on room air oxygen #2 Hypertensive emergency requiring nipride infusion and currently she is off the infusion back on her antihypertensive medication which included a combination of hydralazine 50 mg by mouth 3 times a day, some was discontinued and the patient was placed on Coreg 12.5 mg twice a day and the patient was started also on Norvasc 5 mg by mouth twice a day for tighter blood pressure control #3 History of hypertension. #4 troponin leak an underlying possibility of non-ST segment elevation myocardial infarction is felt to be less likely. #5 Gastroesophageal reflux disease. #6 Previous bowel resection. #7 acute kidney injury, secondary to hypertension and contrast in addition to diuresis. The creatinine has been improving over the past 24 hours is down to 2.0 #8 Previous tobacco dependence #9 chronic obstructive pulmonary disease. Plan Agree on the current blood pressure medication regimen which included a combination of Coreg 12.5 mg twice a day, hydralazine 50 mg 3 times a day and Norvasc 5 mg by mouth twice a day. Monitor BP. Monitor renal function on outpatient basis. Possible cardiac catheterization on an outpatient basis. Currently the patient is on IV Rocephin. Completed course of Ceftin a 7 day course knowing that there was a suspicion for an infection due to high white count and fever at time of admission.
--- NOTE | 2019-07-10 15:56 | P.DS ---
Providers Date of admission: 07/04/19 02:00 Expected date of discharge: 07/10/19 Attending physician: Krishna Gonzalez Consults: 07/04/19 01:59 Consult Physician Urgent Consulting Provider: [facility] Consult Reason/Comments: AECHF Do you want consulting provider notified?: Yes, Notify in am 07/04/19 06:04 Consult Physician Routine Consulting Provider: Anthony Montana Consult Reason/Comments: SOB Do you want consulting provider notified?: Yes 07/04/19 10:18 Consult Physician Urgent Consulting Provider: Anthony Montana Consult Reason/Comments: ICU management Do you want consulting provider notified?: Yes 07/06/19 09:33 Consult Physician Routine Consulting Provider: Chas Ordaz Consult Reason/Comments: elevated kidney function Do you want consulting provider notified?: Yes Primary care physician: Ruben ZavalaGodfrey [facility] Course: 79-year-old female with multiple medical problem presented [facility] complaining of significant shortness of breath for the last a few days. Admission with significant increased weight with slight chest tightness and pressure nausea low-grade temperature with some chills at the time. Patient denies any traveling history recently he was seen by her primary care physician Dr. Donahue and prescribed azithromycin apparently took the medication which did not make any different. Patient become sicker and sicker finally not been able to lay down flat not been able to ambulate walk and cough become more foamy and productive. Ended up coming to [facility] heart department at [facility] where was seen and evaluated she had significant hypoxia and very tachypnea and tachycardia ended up going for CTA did not show any PE but showed significant finding consistent with the fluid overload and early pulmonary edema. Lasix was giving patient was placed on BiPAP at the time her troponin came back mildly elevated as well was admitted to the ICU on IV Rocephin and Zithromax she was on IV nitro initially was switched to night pride 2.5 g and consult pulmonary and cardiology. 07/05/19: Patient is sitting up in in chair stating that her breathing is improved and she is feeling better. Patient denies any chest pain or shortness of breath. She does not lay flat, patient has not been any activity that has caused shortness of breath at this time. She has a positive cough however no sputum. Patient is afebrile vital signs stable, 93% on room air. WBC 16.5, hemoglobin 8.7, P1 has increased to 54, creatinine 1.74. Patient was seen by orthopedics who does not feel that the patient needs any injections at this time for right hip bursitis, this can be done in outpatient setting. Patient may be weightbearing as tolerated. No surgical intervention at this time. 07/06/2019: Patient is sitting up in a chair in no acute distress, patient states that she is breathing better and starting to feel better. Patient denies any chest pain or shortness of breath. Patient remained afebrile blood pressure to 127/92, heart rate 84, pulse ox 90% on room air. WBC 15.4, hemoglobin 8.1, platelet 337, potassium 4.2, BUN is elevated at 60, creatinine 2.20. This is increased compared to yesterday. Chest x-ray continues to show evidence of mild congestive heart failure. Patient continues to be on Lasix at 40 mg twice a day. Heart catheterization is planned for the next 24-48 hours once her heart failure has improved and kidney function is improved. 07/07: Patient remains in the intensive care unit as a selective care overflow patient. Patient denies having any chest pain, improved shortness of breath. She is complaining of bilateral hip pain more so to the right than the left. She has been getting Dilaudid around the clock which will be transitioned to oral [place] and lidocaine cream. Patient is complaining of dry nose for which saline spray will be added. Cardiology is recommending continuing IV Lasix. Nephrology recommends continued Lasix for now. Repeat chest x-ray has been ordered and labs. Physical therapy has recommended either home care or subacute rehab. Anticipate discharge in the next 48 hours. Cardiology is not planning for heart catheterization at this point. 07/08: Patient remains in the intensive care unit waiting for a bed on cardiac stepdown unit. She continues to have hip pain more so to the right hip. Dr. Estrada has changed lidocaine cream to lidocaine patch which seems to be helping her. She received 1 dose of IV Lasix 40 mg this morning. Renal function is worsening with BUN of 66 and creatinine 3.04, hemoglobin 8.4, WBC 16.3. Cardiology has discontinued Cardizem and started Coreg 6.25 mg twice daily and started atorvastatin and baby aspirin. Urine cultures have been finalized with no growth and blood culture no growth at 96 hours. Social work has discussed discharge planning with the patient and she is planning to go home is not considering subacute rehab. Home care will be set up for her. 07/09: Patient remains in intensive care unit awaiting a bed on the cardiac stepdown unit. She has been afebrile, heart rate 87, blood pressure 151/54, pulse ox 94% on room air. Repeat lab work this morning reveals WBC 14.3, hemoglobin 8.4, BUN 67 creatinine 2.74. Blood sugars run between 91 and 126. She is status post 1 dose of IV Lasix this morning. Today, cardiology has increased Coreg to 12.5 mg twice daily. Cozaar remains on hold. Patient is followed by nephrology. Patient continues to have right hip pain. Anticipate discharge in the next 24-48 hours. She is planning to return home. 07/10: Repeat blood work for today shows a white count of 12.0, hemoglobin 8.6, BUN 61 creatinine 2.11. Patient is requesting to go home today. She is ambulating in her room with a walker. She denies any lightheadedness. Renteria cath remains in place which will need to be removed. Patient was started on Norvasc this morning at 5 mg daily and increase by cardiology to 5 mg twice daily. Discuss case with Dr. Estrada and he agrees with starting the Ceftin for home. Patient will be discharged home today in stable condition. Also recommended patient follow-up with Dr. 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 Discharge diagnoses: 1 acute hypoxic respiratory failure secondary to acute pulmonary edema and acute diastolic heart failure. 2 acute diastolic heart failure. 3 COPD without exacerbation 4 acute kidney injury with stage III chronic kidney disease 5 hypertension emergency 6 acute non-ST HI. 7 chronic pain syndrome 8 Eosinophilic Dermatitis 9 severe right hip pain secondary to bursitis. 10 hyperglycemia Discharge plan: Home with [facility]. Impression and plan of care have been directed as dictated by the signing physician. Soo Benz nurse practitioner acting as scribe for signing physician. Patient Condition at Discharge: Good Plan - Discharge Summary Discharge Rx Participant: Yes New Discharge Prescriptions: New hydrALAZINE HCL [Apresoline] 50 mg PO TID #90 tab Aspirin 81 mg PO DAILY chew Cefuroxime [Ceftin] 250 mg PO BID #6 tablet Carvedilol [Coreg*] 12.5 mg PO BID-W/MEALS #60 tab Cyclobenzaprine [Flexeril] 5 mg PO TID PRN #60 tab PRN Reason: Muscle Spasm Potassium Chloride ER [K-Dur 20] 20 meq PO DAILY #30 tab Furosemide [Lasix] 40 mg PO DAILY #30 tablet Lidocaine 5% Patch [Lidoderm 5% Patch] 1 patch TOPICAL DAILY #30 patch amLODIPine [Norvasc] 5 mg PO DAILY #30 tab predniSONE 0 mg PO DIRECTED #30 tab Pravastatin Sodium [Pravachol] 20 mg PO DAILY 90 Days tab Continue Omeprazole [PriLOSEC] 20 mg PO DAILY traMADol HCL [Ultram] 50 - 100 mg PO TID PRN PRN Reason: Pain L.acidoph,Paracasei, B.lactis [Probiotic] 1 cap PO DAILY Cholecalciferol [Vitamin D3 (25 Mcg = 1000 Iu)] 5,000 unit PO DAILY Calcium Carbonate [Calcium] 600 mg PO DAILY Biotin 10,000 mcg PO DAILY Discontinued Losartan/Hydrochlorothiazide [Hyzaar 100-25 Tablet] 1 tab PO DAILY predniSONE See Taper PO DAILY Azithromycin [Zithromax Z-pack] See Taper PO DIRECTED Discharge Medication List Omeprazole [PriLOSEC] 20 mg PO DAILY 05/01/14 [History] L.acidoph,Paracasei, B.lactis [Probiotic] 1 cap PO DAILY 06/28/18 [History] traMADol HCL [Ultram] 50 - 100 mg PO TID PRN 06/28/18 [History] Biotin 10,000 mcg PO DAILY 07/03/19 [History] Calcium Carbonate [Calcium] 600 mg PO DAILY 07/03/19 [History] Cholecalciferol [Vitamin D3 (25 Mcg = 1000 Iu)] 5,000 unit PO DAILY 07/03/19 [History] Aspirin 81 mg PO DAILY chew 07/10/19 [Rx] Carvedilol [Coreg*] 12.5 mg PO BID-W/MEALS #60 tab 07/10/19 [Rx] Cefuroxime [Ceftin] 250 mg PO BID #6 tablet 07/10/19 [Rx] Cyclobenzaprine [Flexeril] 5 mg PO TID PRN #60 tab 07/10/19 [Rx] Furosemide [Lasix] 40 mg PO DAILY #30 tablet 07/10/19 [Rx] Lidocaine 5% Patch [Lidoderm 5% Patch] 1 patch TOPICAL DAILY #30 patch 07/10/19 [Rx] Potassium Chloride ER [K-Dur 20] 20 meq PO DAILY #30 tab 07/10/19 [Rx] Pravastatin Sodium [Pravachol] 20 mg PO DAILY 90 Days tab 07/10/19 [Rx] amLODIPine [Norvasc] 5 mg PO DAILY #30 tab 07/10/19 [Rx] hydrALAZINE HCL [Apresoline] 50 mg PO TID #90 tab 07/10/19 [Rx] predniSONE 0 mg PO DIRECTED #30 tab 07/10/19 [Rx] Follow up Appointment(s)/Referral(s): Janet Cobb MD [STAFF PHYSICIAN] - 1 Week (office notified, office will contact pt for follow up date) Jessica Kruger MD [STAFF PHYSICIAN] - 07/21/19 3:15 pm () Ruben Donahue DO [Primary Care Provider] - 07/15/19 10:15 am Jenelle Stark MD [STAFF PHYSICIAN] - 07/24/19 1:10 pm Jennifer Estrada MD [STAFF PHYSICIAN] - 07/29/19 10:15 am [facility] Visiting Nurse, [NON-STAFF] - 1-2 Days Patient Instructions/Handouts: Heart Attack (DC), Heart Failure (ER), Acute Kidney Injury (DC), Hypertension (DC) Discharge Disposition: HOME WITH HOME HEALTH SERVICES
[2019-07-10 16:01] VITALS: BP 163/56; RESP 22
[2019-07-10 16:37] VITALS: PULSE 98; TEMP 98.3
--- NOTE | 2019-07-10 18:25 | PN ---
PROGRESS NOTE The patient is seen for followup for acute kidney injury and volume overload. The patient's renal function has improved. She has been maintained on Lasix which she has been receiving almost on a daily basis. The patient's edema is significantly improved. She wants to go home. PHYSICAL EXAMINATION: Blood pressure is 169/69 this morning, heart rate 84 per minute. She is afebrile. Examination of the heart S1, S2. Examination of the lungs, bilateral breath sounds are heard. Decreased breath sounds at bases. Abdomen is soft, nontender. Examination of lower extremities shows chronic skin changes bilaterally. Edema 1+ noted bilaterally. LABS: Show sodium 134, potassium 4.6, BUN 61, creatinine 2.1, calcium 8.6 g/dL, hemoglobin 8.6 g/dL. ASSESSMENT: 1. Acute kidney injury, nonoliguric, currently improved, associated with acute tubular necrosis as well as congestive heart failure. 2. Dyspnea from diastolic heart failure, volume overload currently improved. 3. Hypertensive urgency partly volume sensitive now improved. 4. Non ST elevation MO. PLAN: Patient can be discharged on Lasix 40 mg p.o. daily. Continue to hold off on the Cozaar and repeat labs as outpatient in about one week's time. Patient should follow up as outpatient in the office in one week's time. She is advised to continue to avoid use of nonsteroidal anti-inflammatory agents and monitor blood pressure at home. MMODL / IJN: [id number] /
== END 2019-07-10 17:20 | disposition home health service (06) | DRG 280 ==
LOC: EC 20:20 → 2SICU 07-04 02:00
PROVIDERS: ADMIT Internal Medicine Geriatric Medicine; ATTEND Internal Medicine Geriatric Medicine
PROC: 5A09457 Assistance with Respiratory Ventilation, 24-96 Consecutive Hours, Continuous Positive Airway Pressure (ICD-10-PCS; principal; 2019-07-03)
DX: I13.0 Hypertensive heart and chronic kidney disease with heart failure and stage 1 through stage 4 chronic kidney disease, or unspecified chronic kidney disease (principal); N17.0 Acute kidney failure with tubular necrosis; I21.4 Non-ST elevation (NSTEMI) myocardial infarction; I50.31 Acute diastolic (congestive) heart failure; J96.01 Acute respiratory failure with hypoxia; I16.1 Hypertensive emergency; J44.0 Chronic obstructive pulmonary disease with (acute) lower respiratory infection; Z16.24 Resistance to multiple antibiotics; J20.9 Acute bronchitis, unspecified; E78.00 Pure hypercholesterolemia, unspecified; K21.9 Gastro-esophageal reflux disease without esophagitis; G89.4 Chronic pain syndrome; I16.0 Hypertensive urgency; E78.5 Hyperlipidemia, unspecified; N18.3 Chronic kidney disease, stage 3 (moderate); T50.2X5A Adverse effect of carbonic-anhydrase inhibitors, benzothiadiazides and other diuretics, initial encounter; Y92.239 Unspecified place in hospital as the place of occurrence of the external cause; D63.1 Anemia in chronic kidney disease; M70.61 Trochanteric bursitis, right hip; R73.9 Hyperglycemia, unspecified; L30.3 Infective dermatitis; Z90.49 Acquired absence of other specified parts of digestive tract; Z98.890 Other specified postprocedural states; Z90.89 Acquired absence of other organs; Z90.710 Acquired absence of both cervix and uterus; Z98.49 Cataract extraction status, unspecified eye; Z87.891 Personal history of nicotine dependence; Z82.49 Family history of ischemic heart disease and other diseases of the circulatory system; Z79.899 Other long term (current) drug therapy; Z88.1 Allergy status to other antibiotic agents; Z88.2 Allergy status to sulfonamides; Z91.048 Other nonmedicinal substance allergy status; Z87.19 Personal history of other diseases of the digestive system
CPT/HCPCS: 36415; 36600; 51702; 71045; 71275; 73501; 76770; 80048; 80053; 81001; 82272; 82728; 82805; 83540; 83550; 83735; 83880; 84145; 84484; 85025; 85027; 85379; 85610; 85730; 86738; 87040; 87086; 87449; 87502; 93005; 93306; 93970; 94640; 94660; 96365; 96366; 96367; 96368; 96375; 99291